=== PATIENT | female | born 1955 | race Caucasian/White ===

== ENCOUNTER 2022-02-02 00:42 | Emergency (ER) | payer MEDICARE, OTHER, SELFPAY ==
[2022-02-02] VITALS (10 sets, daily range): BP systolic 120–140; BP diastolic 57–108; PULSE 73–125; RESP 16–20; TEMP 37.1; O2SAT 97–100; BMI 48.7
[2022-02-02] MEDS: 0.9 % SODIUM CHLORIDE 1000 ml 1,000 ML IV (00:50)
[2022-02-02] MEDS: dilTIAZem 5 MG/ML inj 15 MG IVP (00:50)
--- NOTE | 2022-02-02 00:59 | CRLHL7_ITS ---
For Patients: As a result of the Century Cures Act, medical imaging exams and procedure reports are released immediately into your electronic medical record. You may view this report before your referring provider. If you have questions, please contact your health care provider. INDICATION: Arrhythmia. TECHNIQUE: Chest 1 views. COMPARISON: Chest x-ray from 03/08/2019. FINDINGS: Lungs: Clear lungs. No consolidation. Pleura: No pleural effusion or pneumothorax. Heart and Mediastinum: The cardiomediastinal silhouette is prominent. The vessels are unremarkable. Bones: Unremarkable. IMPRESSION: No acute cardiopulmonary disease. Dictated by Daniele Larson MD @ 02/02/2022 1:24:27 AM (Electronically Signed)
[2022-02-02 01:22] LABS: Basophils Percent Auto 0.4 % (0.0-3.0); Eosinophils Percent Auto 3.2 % (0.0-7.0); Hematocrit 42.3 % (33.0-51.0); Hemoglobin* 13.9 gm/dL (12.0-16.0); Immature Granulocytes Abs Auto 0.04 K/uL (0.00-0.30); Lymphocytes Percent Auto 29.1 % (20-44); Mean Corpuscular HGB Conc 33 gm/dL (32-36); Mean Corpuscular Hemoglobin 29 pg (26-34); Mean Corpuscular Volume 88 fL (80-100); Monocytes Percent Auto 7.4 % (0.0-11.0); Neutrophils Percent Auto 59.6 % (42.0-72.0); Platelet Count* 251 K/uL (140-440); RDW Coefficient of Variation % 13.1 % (11.5-15.5); Red Blood Count 4.83 m/uL (4.00-5.20); White Blood Count* 12.31 K/uL (4.50-11.00)
[2022-02-02 01:23] LABS: Slide Review Reflex No
[2022-02-02 01:34] LABS: Chloride* 102 mmol/L (96-114)
--- OUTSIDE RECORDS SUMMARY | 2022-02-02 01:34 | XMS_ITS | Clinical Summary ---
:1955 Author Organization [facility] [place] [address] Care Team Providers Name Role Phone Rose Mary Chávez MD Primary Care Provider [phone] Allergies Active Allergy Reactions Severity Noted Date Comments Vancomycin Itching Medium 01/29/2021 Medications Medication Sig Dispensed Refills Start Date End Date Status ibuprofen (ADVIL; MOTRIN) Take 200 mg by 0 Active 200 mg tablet mouth. blood-glucose Dispense meter, 1 Device 0 02/09/2019 Active meterIndications: test strips, Controlled type 2 lancets covered diabetes mellitus without by pt ins. E11.9 complication, without NIDDM type II - long-term current use of Test 3 insulin (HC) times/day, Reason: High A1C [id number] Take 2 Each by 0 1 Active jeanette 100 mg-150 mg- 50 mouth once mg-150 mg capIndications: daily. Primary osteoarthritis of right knee cyanocobalamin (Vitamin Take 1 Tablet 90 Tablet 3 05/02/2021 Active B-12) 1,000 mcg (1,000 mcg) by tabletIndications: B12 mouth once deficiency daily. durable medical equipment Pneumatic 2 Each 0 05/16/2021 Active (DME)Indications: Edema compression of both lower legs due to device. peripheral venous insufficiency, Chronic diastolic CHF (congestive heart failure) (HC) blood sugar diagnostic TEST 3 TIMES 100 Each 08/30/2021 Active (Contour Next Test DAILY Strips) stripIndications: Controlled type 2 diabetes mellitus with stage 3 chronic kidney disease, without long-term current use of insulin (HC) silver sulfADIAZINE Apply topically 85 g 1 08/30/2021 Active (SILVADENE) 1 % to affected creamIndications: area(s) once Lipodermatosclerosis of daily. left lower extremity rivaroxaban (XARELTO) 15 Take 1 Tablet 90 tablet. 3 08/30/2021 Active mg tab tabletIndications: (15 mg) by mouth Paroxysmal atrial 2 times daily fibrillation with rapid with meals. ventricular response (HC) metoprolol succinate Take 1 Tablet 90 Tablet 3 08/30/2021 Active (TOPROL XL) 100 mg (100 mg) by Sustained-Release mouth once tabletIndications: daily. Paroxysmal atrial fibrillation with rapid ventricular response (HC), Essential hypertension, Cardiomyopathy due to hypertension, with heart failure (HC), Chronic diastolic CHF (congestive heart failure) (HC) lisinopriL (PRINIVIL; TAKE 1 TABLET BY 90 Tablet 3 08/30/2021 Active ZESTRIL) 20 mg MOUTH DAILY tabletIndications: Essential hypertension, Cardiomyopathy due to hypertension, with heart failure (HC), Stage 3a chronic kidney disease (HC) hydroCHLOROthiazide Take 1 Tablet 90 Tablet 3 08/30/2021 Active (HCTZ) 25 mg (25 mg) by mouth tabletIndications: once daily. Essential hypertension cholecalciferol, Vitamin Take 1 Tablet 90 Tablet 3 08/30/2021 Active D3, (Vitamin D-3) 5,000 (5,000 units) by unit tab mouth once tabletIndications: daily. Vitamin D deficiency atorvastatin (LIPITOR) 40 Take 1 Tablet 90 tablet. 3 2 Active mg tabletIndications: (40 mg) by mouth Homocystinemia (HC), at bedtime. 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 Controlled type 2 diabetes mellitus with stage 3 chron ic kidney disease, 05/02/2021 without long-term current use of insulin Symptomatic congestive heart failure 04/03/2021 Myocardial strain 04/03/2021 Morbid obesity 04/03/2021 Mild mitral valve regurgitation 04/03/2021 Mild left ventricular hypertrophy 04/03/2021 Mild aortic valve stenosis 04/03/2021 Mild aortic valve regurgitation 04/03/2021 Edema of both lower legs due to peripheral venous insu fficiency 04/03/2021 Anemia 04/03/2021 Chronic diastolic CHF (congestive heart failure) 05/03 Atrial fibrillation with rapid ventricular response Cardiomyopathy due to hypertension 03/16/2019 Stage 3b chronic kidney disease 03/16/2019 Hyperlipidemia 02/09/2019 Hypertension 01/28/2019 Morbid obesity with BMI of 50.0-59.9, adult 01/28/2019 Family history of clotting disorder 01/28/2019 Overview: 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 Resolved Problems Problem Noted Date Resolved Date Primary osteoarthritis of both knees 01/28/2019 Overview: R worse than L Encounters Date Type Specialty Care Team Description 12/04/2021 Office Visit Shae Hidalgo MD Follow Up (Follow up A.Fib/echo ) 12/04/2021 Travel 11/29/2021 Office Visit Rose Mary Chávez, Neck Pain/problem (Sister MD noted she had s ome RIGHT sided neck swel ling on 11/20 - had recently had dental work done, had her upper teeth removed a nd now has a denture or she thought maybe a swollen lymph node - denies pain, fever - feels like mayb e a little bump ) 11/29/2021 Travel 11/27/2021 Orders Only <No scans attac hed> 11/27/2021 Travel 11/26/2021 Telephone Rose Mary Chávez, Appoi ntment Request (Patient hoping to be placed on wait/ cancellation list/if she can bee seen sooner in its f) 11/23/2021 Travel 11/05/2021 Orders Only Kizzy Umana <No scans a ttached> from Last 3 Months Immunizations Name Administration Dates Next Due COVID-19 vaccine ([employer] 30mcg/0.3mL) 12YO+ 022 CADE-SUCROSE PF, MDV COVID-19 vaccine ([employer] 30mcg/0.3mL) PF, MDV 03/09 Influenza, Inactivated AIIV4 (Age 65+ Years) Preserv 022 Free Pneumococcal conj 13-Valent (Prevnar 13) 11/28/2020 Td (Age >=7 Years) 03/08/2019 Family History Medical History Relation Name Comments Coronary artery disease Brother Hyperlipidemia Brother Coronary artery disease Father Hypertension Mother Diabetes Sister Relation Name Status Comments Brother Father Mother Sister Social History Tobacco Use Types Packs/Day Years Used Date Former Smoker 1 40 Quit: 2013 Smokeless Tobacco: Never Used Tobacco Cessation: Counseling Given: Yes Comments: smoke for 40 years Alcohol Use Standard Drinks/Week Comments Not Currently 0 (1 standard drink = 0.6 oz pure alcoho l) Alcohol Habits Answer Date Recorded How often do you have a drink containing alcohol? Monthly or less 08/30/2019 How many drinks containing alcohol do you have on a Not aske d typical day when you are drinking? How often do you have six or more drinks on one Not asked occasion? Comment: Not asked Sex Assigned at Date Recorded Not on file Obstetrics History Last Filed Vital Signs Vital Sign Reading Time Taken Comments Blood Pressure 139/72 12/04/2021 8:37 AM CDT Pulse 57 12/04/2021 8:37 AM CDT Temperature 36.3 ??C (97.4 ??F) 05/14/2021 10:48 AM PSYCHIATRIC TECH Respiratory Rate 18 05/30/2020 9:55 AM PSYCHIATRIC TECH Oxygen Saturation 98% 12/04/2021 8:37 AM CDT Inhaled Oxygen Concentration - - Weight 145.5 kg (320 lb 12.8 oz) 12/04/2021 8:37 AM CDT Height 167.6 cm (5' 6) 08/30/2021 11:04 AM CDT Body Mass Index 51.78 08/30/2021 11:04 AM CDT Plan of Treatment Health Maintenance Due Date Last Done Comments Tdap 01/04/1967 Zoster (shingles) series for age 0901/04/1975 50+ (1 of 2) COVID-19 vaccine series (5 - 10/25/2021 08/30/2021, 021, Booster for Pfizer series) 08/01/2020, Additiona l history exists Pneumococcal series for age 65+ (2 11/28/2021 11/28/2020 - PPSV23 or PCV20) Influenza for age 65+ 12/27/2021 05/02/2021 Fecal testing non-DNA 05/03/2022 05/03/2021, 06/02/2020, (FIT,FOBT,iFOBT) for age 45-75 02/12/2019 Mammogram for age 45-75 05/08/2022 05/08/[address] (for lung CA) age 0508/29/2022 08/29/2021, 2021 50-80 BMI (ht and wt on same day) for 08/30/2022 08/30/2021, 12/28, age 18+ 12/19/2020, Additional history exists Depression screening for age 12+ 08/30/2022 08/30/2021, 08/2020, 06/01/2020, Additional history exists Medicare Wellness for age 65+ 08/30/2022 08/30/2021 Lipids for age 45-75 08/28/2026 08/28/2021, 11/22/2020, 05/30/2020, Additional history exists Tetanus booster 03/08/2029 03/08/2019 Hepatitis C screening for age Completed 02/09/2019 18-79 DEXA/DXA scan for age 65+ Completed 05/08/2021 Procedures Procedure Name Priority Date/Time Associated Diagnosis Comme nts CBC WITH AUTO Routine 11/29/2021 3:30 Lymphadenopathy Results for this DIFFERENTIAL PM CDT procedure are i n the results section. CBC WITH AUTO Routine 11/29/2021 3:30 Lymphadenopathy Results for this DIFFERENTIAL PM CDT procedure are i n the results section. ECHO COMPLETE WO Routine 11/27/2021 10:52 Intermittent atrial Results for this CONTRAST AM CDT fibrillation (HC ) procedure are in Atrial fibrillation the resu lts with rapid ventricular secti on. response (HC) EXTENDED HOLTER Routine 11/05/2021 Intermittent atrial Resul ts for this fibrillation (HC ) procedure are in Atrial fibrillation the resu lts with rapid ventricular secti on. response (HC) from Last 3 Months Results (ABNORMAL) CBC WITH AUTO DIFFERENTIAL (11/29/2021 3:30 PM CDT) [facility] Method Time Signature WHITE BLOOD 10.0 4.5 - 11.0 11/29/2021 [facility] thou/cu mm 3:36 PM CDT [facility] RED BLOOD COUNT 4.70 4.00 - 11/29/2021 [facility] 5.20 3:36 PM CDT [facility] mil/cu mm [facility] HEMOGLOBIN 13.6 12.0 - 11/29/2021 [facility] 16.0 g/dL 3:36 PM CDT [facility] HEMATOCRIT 41.0 33.0 - 11/29/2021 [facility] 51.0 % 3:36 PM CDT [facility] MCV 87 80 - 100 11/29/2021 [facility] fL 3:36 PM CDT [facility] MCH 28.9 26.0 - 11/29/2021 [facility] 34.0 pg 3:36 PM CDT [facility] MCHC 33.2 32.0 - 11/29/2021 [facility] 36.0 g/dL 3:36 PM CDT [facility] RDW 13.9 11.5 - 11/29/2021 [facility] 15.5 % 3:36 PM CDT [facility] PLATELET COUNT 237 140 - 440 [facility]/29[facility]2021 [facility]cu mm 3:36 PM CDT [facility] MPV 10.5 6.5 - 11.0 11/29[facility]2021 [facility] fL 3:36 PM CDT [facility] % NEUT 47.7 % 11/29/2021 [facility] 3:36 PM CDT [facility] % LYMPH 39.7 % 11/29/2021 [facility] 3:36 PM CDT [facility] % MONO 8.0 % 11/29/2021 [facility] 3:36 PM CDT [facility] % EOS 4.0 % 11/29/2021 [facility] 3:36 PM CDT [facility] % BASO 0.6 % 11/29/2021 [facility] 3:36 PM CDT [facility] ABSOLUTE 4.8 1.7 - 7.0 11/29/2021 [facility] NEUTROPHILS thou/cu mm 3:36 PM CDT [facility] ABSOLUTE 4.0 (H) 0.9 - 2.9 11/29/2021 [facility] LYMPHOCYTES thou/cu mm 3:36 PM CDT [facility] ABSOLUTE 0.8 <0.9 11/29/2021 [facility] MONOCYTES thou/cu mm 3:36 PM CDT [facility] ABSOLUTE 0.4 <0.5 11/29/2021 [facility] EOSINOPHILS thou/cu mm 3:36 PM CDT [facility] ABSOLUTE 0.1 <0.3 11/29/2021 [facility] BASOPHILS thou/cu mm 3:36 PM CDT [facility] Specimen Anatomical Collection Method / Collection Time Recei salome Time (Source) Location / Volume Laterality Blood BLOOD SPECIMEN / Venipuncture / 11/29/2021 3:30 2021 3:31 Unknown Unknown PM CDT PM CDT Rose Mary Chávez MD HEMATOLOGY Performing Organization Address City/State/ZIP Code Phon e Number [facility] [address] [place] [address] ECHO COMPLETE WO CONTRAST (11/27/2021 10:52 AM CDT) P athologist Signature AORTIC VALVE 20 mmHg MEAN PG EJECTION 62 % FRACTION LVEDD 4.8 cm EJECTION 60 - 65% FRACTION Anatomical Region Laterality Modality HEART Ultrasound Specimen (Source) Anatomical Collection Method Collection Time Re ceived Time Location / / Volume Laterality 11/27/2021 10:10 AM CDT Narrative 11/27/2021 10:56 AM CDT ECHOCARDIOGRAM CHELO TORRES ?Accessio n#: ?? [id number] : ?1955 66 years Study Date: ?? 11/27/2021 10:10:03 AM Gender: F ? BP: ? 151/69 mmHg Height: 173.00 cm ? BSA: ?2.50 m? ?? Weight: 146.00 kg ? Tech: ? MJS ?Munira barron MD: ROSE MARY CHÁVEZ Site: ? [facility] Reading Location: MOBILE OP Procedure: 2D, Color Doppler and Spectra l Doppler. Indication for study: AT-FIB Cardiac Rhythm: Normal sinus.Study quali ty: Technically limited. Final Impressions: 1. Technically limited exam. 2. The aortic valve is sclerotic and tr ileaflet, moderate stenosis and mild to moderate regurgitation. The aortic valve peak velocity is 2.9 m/s, the peak gradient is 34 mmHg, and the mean gradient is 20 mmHg. The aortic valve area is 1.32 c m? ?? with a dimensionless index of 0.35. The stroke volume index is 38.6 ml/m? ??. 3. Normal LV size, moderately increased wall thickness, normal global systolic function with an estimated EF of 60 - 65%. 4. Right ventricular cavity size is nor mal, global systolic RV function is normal. 5. Moderately enlarged left atrium. 6. The mitral valve is sclerotic, trace mitral regurgitation. 7. The ascending aorta is dilated with a maximal diameter of 4.0 cm. Comparison Compared to prior exam report of 04/2020, there has been no significant change. Chamber Sizes and Function Normal left ventricular size, moderately increased wall thickness, normal global systolic function with an estimated EF of 60 - 65%. Left atrial size is moderately enlarged. Right ventricular cavity siz e is normal, global systolic RV function is normal. The right atrium is normal. Right atrial volume index is 17 ml/m? ??. Right atrial area is 15 cm? ??. The pulmonary artery is of normal size and origi n. The sinus of Valsalva is normal sized . The ascending aorta is dilated. Valves, RV Pressures and Diastolic Funct ion The aortic valve is sclerotic and trilea flet, moderate stenosis and mild to moderate regurgitation. The mitral valve is sclerotic, trace mitral regurgitation. Spectral Doppler shows Grade 1 pattern of L V diastolic filling. The tricuspid valve is normal in structure. Tricuspid regurgitation is trace regurgitation. The pulmonic valve is not well visualized. No pulmonary regurgitation. TTE images do not appear adequate for transcather interven tion with patient supine. Masses, Effusion, Shunts There is no pericardial effusion. The in ferior vena cava is normal sized, respiratory size variation greater than 50%. No left to right shunting was detected by limited color flow Doppler interrogation of the interatrial septum. MEASUREMENTS AND CALCULATIONS 2-D Measurements and LV Function: LVID (d) 4.8 cm LV FS% (2D) ?? 51 % LVID (s) 2.4 cm LVOT diameter 2.2 cm IVS (d) ??1.3 cm HR ?60 bpm LVPW (d) 1.3 cm LA Vol index ??39 ml/m2 Ao Sinus 3.2 cm RA Vol index ??17 ml/m2 Asc Ao ?? 4.0 cm RA area ? 15 cm? ?? LA ? 4.3 cm RV Max 4C (d) 3.3 cm Diastology: Mitral ?Tissue Doppler E Peak 0.8 m/s ??e', Septum ? 0.05 m /s A Peak 1.2 m/s ??e', Lateral ?0.10 m /s E/A ?0.6 ?E/e' Average ?? 10. 64 DT ? 391 msec Aortic Valve: Vmax ? 2.9 m/s ??BARBARA (V) ?? 1.30 cm? ?? VTI ?0.73 m ?? BARBARA (I) ?? 1.32 cm? ?? LVOT V max 1.0 m/s ??Max PG ?34 mmHg LVOT VTI ?? 0.25 m ?? Mean PG ?? 20 mmHg SV ? 97 ml ?Dim Index 0.35 SV index ?? 39 ml/m? ?? CO ?5.8 l/min ?CI ?2.3 l/min/m? ?? Mitral Valve: MVA ?1.9 cm? ?? MV P 1/2 113 msec Tricuspid Valve and estimated PA pressur es: TAPSE 2.9 cm . This study was interpreted by an [facility] redited facility. ??Final ?? Procedure Note Farshad Camacho MD - 11/27/2021Format ting of this note might be different from the original. ECHOCARDIOGRAM CHELO TORRES : 1955 66 years Study Date: 022 10:10:03 AM Gender: F BP: 151/69 mmHg Height: 173.00 cm BSA: 2.50 m? ?? Weight: 146.00 kg Tech: JONAS Referring MD: ROSE MARY CHÁVEZ Site: [facility] Reading Location: MOBILE OP Procedure: 2D, Color Doppler and Spectra l Doppler. Indication for study: AT-FIB Cardiac Rhythm: Normal sinus.Study quali ty: Technically limited. Final Impressions: 1. Technically limited exam. 2. The aortic valve is sclerotic and tr ileaflet, moderate stenosis and mild to moderate regurgitation. The aortic valve peak velocity is 2.9 m/s, the peak gradient is 34 mmHg, and the mean gradient is 20 mmHg. The aortic valve area is 1.32 cm? ?? with a dimensionless index of 0.35. The stroke volume index is 38.6 ml/m? ??. 3. Normal LV size, moderately increased wall thickness, normal global systolic function with an estimated EF of 60 - 65%. 4. Right ventricular cavity size is nor mal, global systolic RV function is normal. 5. Moderately enlarged left atrium. 6. The mitral valve is sclerotic, trace mitral regurgitation. 7. The ascending aorta is dilated with a maximal diameter of 4.0 cm. Comparison Compared to prior exam report of 04/2020, there has been no significant change. Chamber Sizes and Function Normal left ventricular size, moderately increased wall thickness, normal global systolic function with an estimated EF of 60 - 65%. Left atrial size is moderately enlarged. Right ventricular cavity size is normal, global systolic RV function is normal. T he right atrium is normal. Right atrial volume index is 17 ml/m? ??. Right atrial area is 15 cm? ??. The pulmonary artery is of normal size and origin. The sinus of Valsalva is normal sized. The ascending aorta is dil ated. Valves, RV Pressures and Diastolic Funct ion The aortic valve is sclerotic and trilea flet, moderate stenosis and mild to moderate regurgitation. The mitral valve is sclerotic, trace mitral regurgitation. Spectral Doppler shows Grade 1 pattern of LV diastolic filling. The tricuspid valve is normal i n structure. Tricuspid regurgitation is trace regurgitation. The pulmonic valve is not well visualized. No pulmonary regurgitation. TTE images do not appear adequate for transcather intervention with patien t supine. Masses, Effusion, Shunts There is no pericardial effusion. The in ferior vena cava is normal sized, respiratory size variation greater than 50%. No left to right shunting was detected by limited color flow Doppler interrogation of the interatrial septum. MEASUREMENTS AND CALCULATIONS 2-D Measurements and LV Function: LVID (d) 4.8 cm LV FS% (2D) 51 % LVID (s) 2.4 cm LVOT diameter 2.2 cm IVS (d) 1.3 cm HR 60 bpm LVPW (d) 1.3 cm LA Vol index 39 ml/m2 Ao Sinus 3.2 cm RA Vol index 17 ml/m2 Asc Ao 4.0 cm RA area 15 cm? ?? LA 4.3 cm RV Max 4C (d) 3.3 cm Diastology: Mitral Tissue Doppler E Peak 0.8 m/s e', Septum 0.05 m/s A Peak 1.2 m/s e', Lateral 0.10 m/s E/A 0.6 E/e' Average 10.64 DT 391 msec Aortic Valve: Vmax 2.9 m/s BARBARA (V) 1.30 cm? ?? VTI 0.73 m BARBARA (I) 1.32 cm? ?? LVOT V max 1.0 m/s Max PG 34 mmHg LVOT VTI 0.25 m Mean PG 20 mmHg SV 97 ml Dim Index 0.35 SV index 39 ml/m? ?? CO 5.8 l/min CI 2.3 l/min/m? ?? Mitral Valve: MVA 1.9 cm? ?? MV P 1/2 113 msec Tricuspid Valve and estimated PA pressur es: TAPSE 2.9 cm . [facility]. Final Rose Mary Chávez MD ECHO ORD EXTENDED HOLTER (11/05/2021) Narrative This result has an attachment that is no t available. Rose Mary Chávez MD CARDIAC SERVICES ORD from Last 3 Months Insurance Payer Benefit Plan / Subscriber ID Effective Dates Phone Addre ss Type Group MEDICARE PART B MEDICARE PART B [id number] 2019-Present ATTN: CLAIMS - HB USE ONLY HB ONLY [address] [place] [address] MEDICARE PART A MEDICARE PART A [id number] 2019-Present ATTN: CLAIMS - HB USE ONLY HB ONLY [address] [place] [address] MEDICA MR MEDICA PRIME [id number] 2021-Present [address] [address] [place] [address] MEDICA [employer] [id number] 2021-Present [address] [address] [place] [address] [employer] [id number] 2021- [address] [address] ATTN: [place] [address] Care Teams Flexible Babysitter Relationship Specialty Start Date End Date Rose Mary Chávez MD PCP - General Family Practice 01/20/19 [address] [place] [address]
[2022-02-02 01:35] LABS: Potassium* 4.8 mmol/L (3.6-5.1); Sodium* 137 mmol/L (135-149)
[2022-02-02 01:37] LABS: Creatinine* 1.5 mg/dL (0.5-1.5); Est. Creatinine Clearance* 37.22; Estimated Glomerular Filt Rate 38 ml/min
[2022-02-02 01:38] LABS: Blood Urea Nitrogen* 37 mg/dL (7-30); Calcium* 9.5 mg/dL (8.4-10.6); Carbon Dioxide* 23 mmol/L (20-32); Glucose* 171 mg/dL (60-115)
[2022-02-02 01:51] LABS: Troponin I* < 0.01 ng/mL (0.01-0.04)
--- NOTE | 2022-02-02 01:53 | ED_ITS ---
HPI - Arrhythmia/Palpitations General Chief Complaint: Arrhythmia/Palpitations Stated Complaint: Afib Time Seen by Provider: 02/02/22 00:44 History of Present Illness HPI narrative: Pt is a 67 year old woman with paraxysmal atrial fibrilllation who presents with atrial fibrillation with a rate of 125-130. Pt takes metoprolol for rate control and is anticoagulated on rivaroxaban. Pt began noticing symptoms one hour ago. No chest pain, sob, nausea, vomiting or diaphoresis. Pt has had similar presentations in the past and generally converts on her own. No change in medications or activity level. Related Data Home Medications Medication Instructions Recorded Confirmed atorvastatin 40 mg tablet 40 mg PO DAILY 02/02/22 02/02/22 hydrochlorothiazide 25 mg tablet 25 mg PO DAILY 02/02/22 02/02/22 lisinopril 20 mg tablet 20 mg PO DAILY 02/02/22 02/02/22 metoprolol succinate 100 mg 100 mg PO DAILY 02/02/22 02/02/22 tablet,extended release 24 hr rivaroxaban 15 mg tablet (Xarelto) 15 mg PO DAILY 02/02/22 02/02/22 Allergies Allergy/AdvReac Type Severity Reaction Status Date / Time vancomycin AdvReac itch Verified 02/02/22 01:11 Review of Systems Status of ROS: Reports: 10 or more systems reviewed and unremarkable except as noted in History and below [facility] Medical History Acute appendicitis with appendiceal abscess Anemia Cellulitis of left lower extremity without foot Controlled type 2 diabetes mellitus Diastolic CHF with preserved left ventricular function, NYHA class 2 Hyperlipidemia Hypertension Hypertensive cardiomyopathy Hypothyroidism Mild aortic insufficiency Mild aortic stenosis Mild left ventricular hypertrophy Mild mitral regurgitation Morbidly obese Paroxysmal atrial fibrillation with rapid ventricular response Stage 3b chronic kidney disease Surgical History S/P laparoscopic appendectomy Social History Smoking Status: Never smoker Do you use any of these nicotine containing products: None Second hand tobacco smoke exposure: No How often do you have a drink containing alcohol: never How often do you have six or more drinks on one occasion: Never AUDIT-C Alcohol total score: 0 Non-prescribed substance use: denies use Exam Narrative: Exam Narrative: EXAM GENERAL: Patient appears comfortable and well. EYES: No scleral icterus. ENT: Tympanic membranes and oropharynx normal. THYROID: no thyroid nodules or thyromegaly. LYMPH: No supraclavicular or cervical lymphadenopathy. SKIN: Visible skin seen during exam normal or with benign process only. EXT: No dependent lower extremity pedal edema. HEART: Regular but tachycardic LUNGS: Clear to auscultation bilaterally with no crackles or wheezes. ABD: Soft, non tender, non distended. PSYCH: Good eye contact, speech is not pressured. Const: Vital Signs, click to edit/add: Vital Signs - 24 hr 02/02/22 00:57 02/02/22 00:44 02/02/22 01:11 Temperature 98.7 F Pulse Rate 85 Pulse Rate [Left A pical] 125 H Respiratory Rate 20 18 Blood Pressure 120/87 Blood Pressure [Le ft Forearm] 140/108 H Pulse Oximetry 97 97 98 Oxygen Delivery Me thod Room Air 02/02/22 01:26 02/02/22 01:30 02/02/22 01:31 Temperature Pulse Rate 73 83 86 Pulse Rate [Left A pical] Respiratory Rate Blood Pressure 122/57 L Blood Pressure [Le ft Forearm] Pulse Oximetry 100 99 99 Oxygen Delivery Me thod 02/02/22 01:35 Temperature 98.7 F Pulse Rate Pulse Rate [Left A pical] 78 Respiratory Rate 18 Blood Pressure Blood Pressure [Le ft Forearm] 125/78 Pulse Oximetry 99 Oxygen Delivery Me thod Room Air Course Course Hospital Course: Pt given 15 mg of IV Cardizem, Labs and x ray ordered. Reevaluation(s) Reevaluation #1: Pulse now 78. Vitals stable. Labs and x ray reassuring. Pt feeling better and would like to go home. Time: 01:58 Vital Signs Vital signs: Initial Vital Signs Pulse Oximetry 97 02/02/22 00:44 Vital Signs Pulse Oximetry 97 02/02/22 00:44 Temperature 98.7 F 02/02/22 01:35 Pulse Rate 78 02/02/22 01:35 Respiratory Rate 18 02/02/22 01:35 Blood Pressure 125/78 02/02/22 01:35 Pulse Oximetry 99 02/02/22 01:35 Oxygen Delivery Method 02/02/22 01:35 MDM - Arrhythmia/Palpitations MDM Narrative Medical decision making narrative: Pt who has a history of paroxysmal atrial fibrillation presents with mild tachycardia. Given 15 mg of IV Cardizem and rate is now under good control. Workup otherwise unremarkable. Home metoprolol increased from 100 to 150. Pt anticoagulated previously. Discharged to home with outpt follow up. Differential Diagnosis Differential diagnosis: Likely palpitations, anxiety, artial fibrillation, artial flutter, ventricular premature beats, supraventricular tachycardia and ventricular tachycardia Lab Data Labs: Lab Results 02/02/22 02/02/22 Range/Units 01:17 01:17 WBC 12.31 H (4.50-11.00) K/uL RBC 4.83 (4.00-5.20) m/uL Hgb 13.9 (12.0-16.0) gm/dL Hct 42.3 (33.0-51.0) % MCV 88 (80-100) fL MCH 29 (26-34) pg MCHC 33 (32-36) gm/dL RDW Coeff of Chin 13.1 (11.5-15.5) % Plt Count 251 (140-440) K/uL Neut % (Auto) 59.6 (42.0-72.0) % Lymph % (Auto) 29.1 (20-44) % [place] % (Auto) 7.4 (0.0-11.0) % Eos % (Auto) 3.2 (0.0-7.0) % Baso % (Auto) 0.4 (0.0-3.0) % Neut # (Auto) 7.30 H (1.7-7.0) K/uL Lymph # (Auto) 3.60 H (0.90-2.90) K/uL [place] # (Auto) 0.90 (0.00-0.90) K/UL Eos # (Auto) 0.40 (0.00-0.50) K/uL Baso # (Auto) 0.00 (0.00-0.30) K/uL Abs Immat Gran (auto) 0.04 (0.00-0.30) K/uL Sodium 137 (135-149) mmol/L Potassium 4.8 (3.6-5.1) mmol/L Chloride 102 (96-114) mmol/L Carbon Dioxide 23 (20-32) mmol/L BUN 37 H (7-30) mg/dL Creatinine 1.5 (0.5-1.5) mg/dL Estimated Creat Clear 37.22 Estimated GFR 38 ml/min Glucose 171 H (60-115) mg/dL Calcium 9.5 (8.4-10.6) mg/dL Troponin I < 0.01 L (0.01-0.04) ng/mL Discharge Plan Discharge Clinical Impression: Atrial fibrillation Condition: Stable Instructions: A-fib (Atrial Fibrillation) (ED) Additional Instructions: Continue current medications Increase metoprolol from 100 to 150 Follow up with your doctor next week. Activity Level: No Restrictions Discharge Diet: Regular Prescriptions: No Action atorvastatin 40 mg tablet 40 mg PO DAILY lisinopril 20 mg tablet 20 mg PO DAILY Label Comments: TAKE 1 TABLET BY MOUTH DAILY metoprolol succinate 100 mg tablet extended release 24 hr 100 mg PO DAILY hydrochlorothiazide 25 mg tablet 25 mg PO DAILY Xarelto 15 mg tablet 15 mg PO DAILY Follow Up/Referrals: Anish Hutchinson MD [Primary Care Provider] - Stand Alone Forms: MyHealth Info Instructions
== END 2022-02-02 02:16 | disposition home or self-care (01) ==
PROVIDERS: Emergency Provider Internal Medicine; PCP Family Medicine
DX: I48.91 Unspecified atrial fibrillation (principal)
CPT/HCPCS: 36415; 71045; 80048; 84484; 85025; 93005; 94761; 99283; 99284; 99285; J7030

== ENCOUNTER 2022-08-12 14:43 | Inpatient (IN) | payer MEDICARE, MEDICAID, OTHER, SELFPAY ==
[2022-08-12] VITALS (17 sets, daily range): BP systolic 117–153; BP diastolic 45–71; PULSE 71–133; RESP 16–20; TEMP 36.3–37.8; O2SAT 83–99; BMI 47.9; BMI 48.0
--- NOTE | 2022-08-12 15:29 | ED_ITS ---
HPI - General Adult General Time Seen by Provider: 15:29 Date Seen: 08/12/22 Chief complaint: Extremity Pain/Injury, Lower Stated complaint: Cellulitis Time Seen by Provider: 08/12/22 14:50 Source: patient and RN notes reviewed Mode of arrival: ambulatory Limitations: no limitations History of Present Illness HPI narrative: Patient is a 67-year-old female coming into the ER accompanied by family with concern of redness swelling and pain in her right lower extremity. She has had history of cellulitis before. She had a fever of 101 yesterday afternoon, did take Tylenol. Has not noted a fever today but did take some Tylenol for discomfort. She is on Xarelto for history of atrial fibrillation but states she did not take it today. She is on hydrochlorothiazide. Does have chronic lower extremity edema. Was noting some urinary issues yesterday, possible frequency and incontinence but daughter believes that it is because she cannot get to the bathroom quick enough. Patient states she has not really ate much in 2 days, can not really tell me why. No current nausea vomiting, feel she is probably hungry now. She is not aware of any history of MRSA. Does have compression boots for edema, she is not wearing them currently. Related Data Home Medications Medication Instructions Recorded Confirmed atorvastatin 40 mg tablet 40 mg PO HS 02/02/22 08/12/22 hydrochlorothiazide 25 mg tablet 25 mg PO DAILY 02/02/22 08/12/22 metoprolol succinate 100 mg 100 mg PO DAILY 02/02/22 08/12/22 tablet,extended release 24 hr rivaroxaban 15 mg tablet (Xarelto) 15 mg PO DAILY 02/02/22 08/12/22 cholecalciferol (vitamin D3) 125 5,000 unit PO DAILY 08/12/22 08/12/22 mcg (5,000 unit) tablet (Vitamin D3) cyanocobalamin (vitamin B-12) 1,000 mcg PO DAILY 08/12/22 08/12/22 1,000 mcg tablet lisinopril 10 mg tablet 15 mg PO DAILY 08/12/22 08/12/22 metoprolol succinate 50 mg 50 mg PO DAILY 08/12/22 08/12/22 tablet,extended release 24 hr turmeric PO 08/12/22 vitamin B complex PO 08/12/22 Allergies Allergy/AdvReac Type Severity Reaction Status Date / Time gabapentin AdvReac Mild Anxiety Verified 08/12/22 14:56 vancomycin AdvReac itch Verified 08/12/22 14:56 [facility] Medical History Acute appendicitis with appendiceal abscess Anemia Cellulitis of left lower extremity without foot Controlled type 2 diabetes mellitus Diastolic CHF with preserved left ventricular function, NYHA class 2 Hyperlipidemia Hypertension Hypertensive cardiomyopathy Hypothyroidism Mild aortic insufficiency Mild aortic stenosis Mild left ventricular hypertrophy Mild mitral regurgitation Morbidly obese Paroxysmal atrial fibrillation with rapid ventricular response Stage 3b chronic kidney disease Surgical History S/P laparoscopic appendectomy Social History Smoking Status: Former smoker Do you use any of these nicotine containing products: None Second hand tobacco smoke exposure: No How often do you have a drink containing alcohol: never How often do you have six or more drinks on one occasion: Never AUDIT-C Alcohol total score: 0 Non-prescribed substance use: denies use Exam Const: Vital Signs, click to edit/add: Vital Signs - 24 hr 08/12/22 14:48 Temperature 97.3 F L Pulse Rate [Pulse Oximeter] 88 Respiratory Rate 16 Blood Pressure [Ri ght Upper Arm] 121/64 Pulse Oximetry 98 Oxygen Delivery Me thod Room Air Documenting provider has reviewed patient's vital signs: yes Common normals: no apparent distress, oriented x3, no limitations, alert and well nourished General appearance: cooperative and comfortable Nutritional appearance: obese HENMT: Common normals: normocephalic, head/scalp atraumatic, hearing grossly normal bilaterally, external ears normal, external nose normal and moist oral mucous membranes Head and scalp: normocephalic and atraumatic Nose: external nose normal External ear: external ears normal Eye: Common normals: PERRL, EOMs intact bilaterally, conjunctivae normal and no scleral icterus Conjunctiva: conjunctiva(e) normal Pupil: PERRL Neck & C-Spine: Common normals: full ROM, no lymphadenopathy and supple Resp: Common normals: normal respiratory effort, no retractions, no use of accessory muscles and clear to auscultation bilaterally Auscultation: clear to auscultation bilaterally Cardio: Common normals: regular rate, regular rhythm, S1 normal heart sound, S2 normal heart sound, no gallops and no clicks Rate: regular rate Rhythm: regular rhythm Heart sounds: S1 normal and S2 normal Other: Systolic murmur, most harsh right sternal border, 2 to 3/6. Normal S1-S2, no S3-S4. GI: Common normals: Normal to inspection, nondistended, normoactive bowel sounds present, soft to palpation and non-tender Palpation: soft Extremity: Other: Has erythema that is confluent along the anterior lower extremity, no vesicles. Erythema is circumferential around her lower extremity, does track down onto the dorsum of the foot. Chronic edema that seems to be symmetric of both lower extremities. Right leg certainly seems to be consistent with cellulitis. Ambulates with a cane. Neuro: Common normals: oriented x3 Sensorium/orientation: alert Course Vital Signs Vital signs: Initial Vital Signs Temperature 97.3 F L 08/12/22 14:48 Temperature Source Temporal Artery Scan 08/12/22 14:48 Pulse Rate 88 08/12/22 14:48 Respiratory Rate 16 08/12/22 14:48 Blood Pressure 121/64 08/12/22 14:48 Blood Pressure Mean 83 08/12/22 14:48 Blood Pressure Position Sitting 08/12/22 14:48 Pulse Oximetry 98 08/12/22 14:48 Oxygen Delivery Method Room Air 08/12/22 14:48 Vital Signs Temperature 97.3 F L 08/12/22 14:48 Pulse Rate 88 08/12/22 14:48 Respiratory Rate 16 08/12/22 14:48 Blood Pressure 121/64 08/12/22 14:48 Pulse Oximetry 98 08/12/22 14:48 Oxygen Delivery Method Room Air 08/12/22 14:48 Temperature 97.3 F L 08/12/22 14:48 Pulse Rate 88 08/12/22 14:48 Respiratory Rate 16 08/12/22 14:48 Blood Pressure 121/64 08/12/22 14:48 Pulse Oximetry 98 08/12/22 14:48 Oxygen Delivery Method Room Air 08/12/22 14:48 Medical Decision Making Lab Data Lab results reviewed: Yes I reviewed the patient's lab results Labs: Lab Results 08/12/22 08/12/22 Range/Units 15:41 16:00 WBC 16.40 H (4.50-11.00) K/uL RBC 4.44 (4.00-5.20) m/uL Hgb 12.8 (12.0-16.0) gm/dL Hct 38.7 (33.0-51.0) % MCV 87 (80-100) fL MCH 29 (26-34) pg MCHC 33 (32-36) gm/dL RDW Coeff of Chin 13.7 (11.5-15.5) % Plt Count 195 (140-440) K/uL Neut % (Auto) 79.6 H (42.0-72.0) % Lymph % (Auto) 13.8 L (20-44) % [place] % (Auto) 5.3 (0.0-11.0) % Eos % (Auto) 0.8 (0.0-7.0) % Baso % (Auto) 0.2 (0.0-3.0) % Neut # (Auto) 13.10 H (1.7-7.0) K/uL Lymph # (Auto) 2.30 (0.90-2.90) K/uL [place] # (Auto) 0.90 (0.00-0.90) K/UL Eos # (Auto) 0.10 (0.00-0.50) K/uL Baso # (Auto) 0.00 (0.00-0.30) K/uL Sodium 134 L (135-149) mmol/L Potassium 3.8 (3.6-5.1) mmol/L Chloride 102 (96-114) mmol/L Carbon Dioxide 22 (20-32) mmol/L BUN 38 H (7-30) mg/dL Creatinine 1.8 H (0.5-1.5) mg/dL Estimated Creat Clear 31.01 Estimated GFR 31 ml/min Glucose 125 H (60-115) mg/dL Lactate 1.9 (0.5-1.9) mmol/L Calcium 8.9 (8.4-10.6) mg/dL Total Bilirubin 2.0 H (0.1-1.5) mg/dL AST 82 H (12-35) U/L ALT 31 (4-35) U/L Alkaline Phosphatase 97 (40-150) U/L C-Reactive Protein 22.4 H (0.5-1.0) mg/dL Total Protein 7.7 (6.0-8.3) g/dL Albumin 3.9 (3.3-5.0) g/dL Urine Color Yellow (Yellow) Urine Appearance Cloudy A (Clear) Urine pH 5.0 (5.0-8.5) Ur Specific [place] 1.025 (1.000-1.030) Urine Protein 2+ A (Negative) Urine Glucose (UA) Negative (Negative) Urine Ketones Negative (Negative) Urine Blood 2+ A (Negative) Urine Nitrite Negative (Negative) Urine Bilirubin Negative (Negative) Urine Urobilinogen 0.2 (0.2-1.0) Ur Leukocyte Esterase 3+ A (Negative) Urine RBC 2-5 A (0-2) Urine WBC 25-50 A (0-5) Ur Squamous Epith Cells Moderate A (None-Few) Urine Bacteria Few A (None) Fine Granular Casts Few A (None) SARS-CoV-2 (PCR) Negative SARS-CoV-2 (Negative) Critical Care Time Critical Care Time Critical Care Time: No Discharge Plan Discharge Clinical Impression: Cellulitis of right lower extremity Patient Disposition: Admitted As Inpatient Condition: Unchanged Prescriptions: No Action atorvastatin 40 mg tablet 40 mg PO HS metoprolol succinate 100 mg tablet extended release 24 hr 100 mg PO DAILY hydrochlorothiazide 25 mg tablet 25 mg PO DAILY Xarelto 15 mg tablet 15 mg PO DAILY cholecalciferol (vitamin D3) [Vitamin D3] 125 mcg (5,000 unit) tablet 5,000 unit PO DAILY vitamin B complex [B Complex-Vitamin B12] PO turmeric PO cyanocobalamin (vitamin B-12) 1,000 mcg tablet 1,000 mcg PO DAILY lisinopril 10 mg tablet 15 mg PO DAILY metoprolol succinate 50 mg tablet extended release 24 hr 50 mg PO DAILY Follow Up/Referrals: Provider,Not a Local [Primary Care Provider] -
[2022-08-12 15:49] LABS: Appearance Urine Cloudy (Clear); Bilirubin Urine Negative (Negative); Blood Urine 2+ (Negative); Color Urine Yellow (Yellow); Glucose Urine Negative (Negative); Ketones Urine Negative (Negative); Leukocyte Esterase Urine 3+ (Negative); Nitrite Urine Negative (Negative); Protein Urine 2+ (Negative); Specific Gravity Urine 1.025 (1.000-1.030); Urobilinogen Urine 0.2 (0.2-1.0)
[2022-08-12 16:11] LABS: Lactate* 1.9 mmol/L (0.5-1.9)
[2022-08-12 16:12] LABS: Basophils Percent Auto 0.2 % (0.0-3.0); Eosinophils Percent Auto 0.8 % (0.0-7.0); Hematocrit 38.7 % (33.0-51.0); Hemoglobin* 12.8 gm/dL (12.0-16.0); Immature Granulocytes Pct Auto 0.3 %; Lymphocytes Percent Auto 13.8 % (20-44); Mean Corpuscular HGB Conc 33 gm/dL (32-36); Mean Corpuscular Hemoglobin 29 pg (26-34); Mean Corpuscular Volume 87 fL (80-100); Monocytes Percent Auto 5.3 % (0.0-11.0); Neutrophils Percent Auto 79.6 % (42.0-72.0); Platelet Count* 195 K/uL (140-440); RDW Coefficient of Variation % 13.7 % (11.5-15.5); Red Blood Count 4.44 m/uL (4.00-5.20)
[2022-08-12 16:15] LABS: Bacteria Urine Few; Fine Granular Casts Urine Few; Squamous Epithelial Cell Urine Moderate (None-Few); WBC Urine 25-50 (0-5)
[2022-08-12 16:19] LABS: Slide Review Reflex No
[2022-08-12 16:25] LABS: Albumin* 3.9 g/dL (3.3-5.0); Chloride* 102 mmol/L (96-114)
[2022-08-12 16:26] LABS: Potassium* 3.8 mmol/L (3.6-5.1); Sodium* 134 mmol/L (135-149)
[2022-08-12 16:28] LABS: Creatinine* 1.8 mg/dL (0.5-1.5); Est. Creatinine Clearance* 31.01; Estimated Glomerular Filt Rate 31 ml/min
[2022-08-12 16:29] LABS: Alanine Aminotransferase* 31 U/L (4-35); Alkaline Phosphatase* 97 U/L (40-150); Aspartate Amino Transferase* 82 U/L (12-35); Blood Urea Nitrogen* 38 mg/dL (7-30); Calcium* 8.9 mg/dL (8.4-10.6); Carbon Dioxide* 22 mmol/L (20-32); Glucose* 125 mg/dL (60-115); Total Protein* 7.7 g/dL (6.0-8.3)
[2022-08-12 16:43] LABS: C Reactive Protein* 22.4 mg/dL (0.5-1.0)
[2022-08-12 17:14] LABS: SARS PCR* Negative SARS-CoV-2 (Negative)
[2022-08-12] MEDS: CEFAZOLIN 2 GM in 0.9 % SODIUM CHLORIDE Mini-bag 100 ML IVPB (18:06)
--- NOTE | 2022-08-12 18:33 | ED.NURSE ---
Report to JARON Schulte. Pt to go to room 278.
--- NOTE | 2022-08-12 20:52 | P.IMHP_ITS ---
Hospitalist- H&P: HPI History of Present Illness Time Seen by Provider: 19:45 Date Seen: 08/12/22 Chief complaint: Cellulitis Narrative: Chelo Torres is a 67 year old female with a history of CHF and recently diagnosed diet-controlled DM2 who presented with malaise, fever and right lower extremity pain, swelling and redness. She for started feeling unwell Friday evening when she felt generally weak and it was hard for her to get out of the bed to get to the bathroom which was only about 10 ft away. Friday she had a fever up to 101 ? F and felt generally unwell with low appetite. She did not show go up to a breakfast with her niece. Her niece, who was in the room with her today, said that she called Uriel and noticed that uriel was not finishing her sentences and seemed confused. The niece came over to uriel's house and noticed that she was really weak. Uriel also had elevated blood sugars up in the 160s to 190s, which is unusual for her. Normally she is in the 140s to 150s. Because she was so weak while she was in the bathroom she fell getting up from the toilet. She landed into the bathtub and has some bruises on her right thigh that. She did not hit her head and did not lose consciousness. Her right lower extremity started to become more swollen, painful and red today and this brought her to the emergency department. She did not have any scratches to this low leg, only bruises up in the thigh which is not near the area that is red and swollen. She has had a left lower extremity cellulitis in the past. Review of Systems Status of ROS: Reports: 10 or more systems reviewed and unremarkable except as noted in History and below [facility] Medical History (Updated 08/12/22 @ 21:18 by Debbie De Los Santos MD) Acute appendicitis with appendiceal abscess ?K35.33 - Acute appendicitis with perforation, localized peritonitis, and gangrene, with abscess (ICD-10) Anemia ?D64.9 - Anemia, unspecified (ICD-10) Bilateral lower extremity edema ?R60.0 - Localized edema (ICD-10) Cellulitis of left lower extremity without foot ?L03.116 - Cellulitis of left lower limb (ICD-10) Controlled type 2 diabetes mellitus ?E11.9 - Type 2 diabetes mellitus without complications (ICD-10) Diastolic CHF with preserved left ventricular function, NYHA class 2 ?I50.30 - Unspecified diastolic (congestive) heart failure (ICD-10) Family history of clotting disorder ?Z83.2 - Family history of diseases of the blood and blood-forming organs and certain disorders involving the immune mechanism (ICD-10) 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) Hyperlipidemia ?E78.5 - Hyperlipidemia, unspecified (ICD-10) Hypertension ?I10 - Essential (primary) hypertension (ICD-10) Hypertensive cardiomyopathy ?I11.9 - Hypertensive heart disease without heart failure (ICD-10) ?I43 - Cardiomyopathy in diseases classified elsewhere (ICD-10) Hypothyroidism ?E03.9 - Hypothyroidism, unspecified (ICD-10) Mild aortic insufficiency ?I35.1 - Nonrheumatic aortic (valve) insufficiency (ICD-10) Mild aortic stenosis ?I35.0 - Nonrheumatic aortic (valve) stenosis (ICD-10) Mild left ventricular hypertrophy ?I51.7 - Cardiomegaly (ICD-10) Mild mitral regurgitation ?I34.0 - Nonrheumatic mitral (valve) insufficiency (ICD-10) Morbidly obese ?E66.01 - Morbid (severe) obesity due to excess calories (ICD-10) Paroxysmal atrial fibrillation with rapid ventricular response ?I48.0 - Paroxysmal atrial fibrillation (ICD-10) Stage 3b chronic kidney disease ?N18.32 - Chronic kidney disease, stage 3b (ICD-10) Surgical History (Updated 08/12/22 @ 19:23 by Debbie De Los Santos MD) S/P laparoscopic appendectomy (~06/2019) ?Z90.49 - Acquired absence of other specified parts of digestive tract (ICD- 10) Family History (Updated 08/12/22 @ 19:24 by Debbie De Los Santos MD) Brother Coronary artery disease High cholesterol Father Coronary artery disease Sister Diabetes Mother High blood pressure Social History (Updated 08/12/22 @ 20:59 by Debbie De Los Santos MD) Narrative: Smoked 40 pack-years, quit in 2012. Drinks 2-3 drinks per year. Denies recreational drug use. Smoking Status: Former smoker Do you use any of these nicotine containing products: None Second hand tobacco smoke exposure: No How often do you have a drink containing alcohol: never How often do you have six or more drinks on one occasion: Never AUDIT-C Alcohol total score: 0 Non-prescribed substance use: denies use Meds Home Medications and Allergies Home Medications Medication Instructions Recorded Confirmed Type atorvastatin 40 mg tablet 40 mg PO HS 02/02/22 08/12/22 History hydrochlorothiazide 25 mg tablet 25 mg PO HS 02/02/22 08/12/22 History metoprolol succinate 100 mg 100 mg PO HS 02/02/22 08/12/22 History tablet,extended release 24 hr rivaroxaban 15 mg tablet (Xarelto) 15 mg PO HS 02/02/22 08/12/22 History cholecalciferol (vitamin D3) 125 5,000 unit PO HS 08/12/22 08/12/22 History mcg (5,000 unit) tablet (Vitamin D3) cyanocobalamin (vitamin B-12) 1,000 mcg PO DAILY 08/12/22 08/12/22 History 1,000 mcg tablet lisinopril 10 mg tablet 15 mg PO HS 08/12/22 08/12/22 History metoprolol succinate 50 mg 50 mg PO HS 08/12/22 08/12/22 History tablet,extended release 24 hr turmeric PO 08/12/22 History vitamin B complex PO 08/12/22 History Allergies Allergy/AdvReac Type Severity Reaction Status Date / Time gabapentin AdvReac Mild Anxiety Verified 08/12/22 14:56 vancomycin AdvReac itch Verified 08/12/22 14:56 Exam Narrative: Exam Narrative: General: No acute distress. Awake alert oriented x3. Morbidly obese. HEENT: Normocephalic atraumatic, pupils equally round and reactive to light and accommodation. Oropharynx clear. Mucous membranes are slightly dry. No cervical lymphadenopathy, thyromegaly or carotid bruits. No JVD. Cardiovascular: Regular rate and rhythm. No murmurs, gallops, or rubs. Chest: No increased work of breathing. Clear to auscultation bilaterally. No crackles or wheezes. Abdomen: Bowel sounds present. Soft, nondistended, nontender. No hepatosplenomegaly or masses. Extremities: It appears that both lower extremities have chronic lymphedema with 2+ edema of the left lower extremity and 3+ edema right lower extremity. Right lower extremity has circumferential well-demarcated bright red blanching and tender area from just below the knee down through the proximal 2/3 of the dorsum of the foot. No cyanosis or clubbing. Skin: No jaundice, no pallor. Const: Vital Signs, click to edit/add: Vital Signs - 24 hr 08/12/22 14:48 08/12/22 15:07 08/12/22 15:30 Temperature 97.3 F L Pulse Rate 85 76 Pulse Rate [Pulse Oximeter] 88 Respiratory Rate 16 Blood Pressure Blood Pressure [Ri ght Upper Arm] 121/64 Pulse Oximetry 98 97 96 Oxygen Delivery Me thod Room Air 08/12/22 15:31 08/12/22 16:07 08/12/22 16:28 Temperature Pulse Rate 78 74 Pulse Rate [Pulse Oximeter] Respiratory Rate Blood Pressure 120/71 117/58 L Blood Pressure [Ri ght Upper Arm] Pulse Oximetry 96 Oxygen Delivery Me thod 08/12/22 16:30 08/12/22 16:32 08/12/22 17:00 Temperature Pulse Rate 71 72 129 H Pulse Rate [Pulse Oximeter] Respiratory Rate Blood Pressure 118/58 L Blood Pressure [Ri ght Upper Arm] Pulse Oximetry Oxygen Delivery Me thod 08/12/22 17:02 08/12/22 17:32 08/12/22 17:48 Temperature Pulse Rate 133 H Pulse Rate [Pulse Oximeter] Respiratory Rate Blood Pressure 125/45 L 136/64 Blood Pressure [Ri ght Upper Arm] Pulse Oximetry 83 L Oxygen Delivery Me thod 08/12/22 18:01 Temperature Pulse Rate Pulse Rate [Pulse Oximeter] Respiratory Rate Blood Pressure 130/61 Blood Pressure [Ri ght Upper Arm] Pulse Oximetry Oxygen Delivery Me thod Vital signs around 8:30 p.m. showed O2 sats of 98% on room air and a pulse of 90, respirations 20, systolic blood pressure 145. Hospitalist - H&P: Result Labs Labs: Short CBC 08/12/22 Range/Units 16:00 WBC 16.40 H (4.50-11.00) K/uL Hgb 12.8 (12.0-16.0) gm/dL Hct 38.7 (33.0-51.0) % Plt Count 195 (140-440) K/uL BMP 08/12/22 16:00 Sodium 134 L Potassium 3.8 Chloride 102 Carbon Dioxide 22 BUN 38 H Creatinine 1.8 H Glucose 125 H Calcium 8.9 Liver Function 08/12/22 Range/Units 16:00 Total Bilirubin 2.0 H (0.1-1.5) mg/dL AST 82 H (12-35) U/L ALT 31 (4-35) U/L Alkaline Phosphatase 97 (40-150) U/L Albumin 3.9 (3.3-5.0) g/dL Urine 08/12/22 Range/Units 15:41 Urine Color Yellow (Yellow) Urine Appearance Cloudy A (Clear) Urine pH 5.0 (5.0-8.5) Ur Specific [place] 1.025 (1.000-1.030) Urine Protein 2+ A (Negative) Urine Glucose (UA) Negative (Negative) Ordering Physician: Wade Elaine M.D. Date of Service: 02/02/22 Procedure(s): XR chest 1V portable Accession Number(s): [id number] cc: Wade Elaine M.D.~ For Patients: As a result of the Century Cures Act, medical imaging exams and procedure reports are released immediately into your electronic medical record. You may view this report before your referring provider. If you have questions, please contact your health care provider. INDICATION: Arrhythmia. TECHNIQUE: Chest 1 views. COMPARISON: Chest x-ray from 03/08/2019. FINDINGS: Lungs: Clear lungs. No consolidation. Pleura: No pleural effusion or pneumothorax. Heart and Mediastinum: The cardiomediastinal silhouette is prominent. The vessels are unremarkable. Bones: Unremarkable. IMPRESSION: No acute cardiopulmonary disease. Dictated by Daniele Larson MD @ 02/02/2022 1:24:27 AM (Electronically Signed) Assessment and Plan Assessment and plan (1) Cellulitis of right lower extremity: Problem comment: - Admit, sami edges, elevate RLE, control BG, continue ancef started in ER, will adjust for reduced renal function. - I think DVT is unlikely since she has been on therapeutic doses of Xarelto. - If worsening or no improvement, will need to expand coverage/add vanco. Status: Acute (2) Controlled type 2 diabetes mellitus: Problem comment: Most recent hemoglobin A1c was 7.1% on 03/04/2022 - recheck HgbA1C - ISS, diabetic diet Status: Chronic (3) Diastolic CHF with preserved left ventricular function, NYHA class 2: Problem comment: - not currently in exacerbation - Not septic at this time, so I will hold off on IVF. low Na diet and FR of 2000cc/day. Status: Chronic (4) NICKOLAS (acute kidney injury): Problem comment: Mild. Hold HCTZ and lisinopril. Recheck Cr in am. Status: Acute (5) Stage 3b chronic kidney disease: Problem comment: Baseline creatinine is approximately 1.2-1.5 Status: Chronic (6) Weakness: Problem comment: PT/OT evaluation Status: Acute (7) Hypertension: Status: Chronic (8) Paroxysmal atrial fibrillation with rapid ventricular response: Problem comment: Continue metoprolol and Xarelto Status: Chronic Plan VTE prophylaxis with Xarelto.
[2022-08-12] MEDS: RIVAROXABAN 10 MG TABLET 15 MG PO (22:13)
[2022-08-12] MEDS: ACETAMINOPHEN 325 MG TABLET 650 MG PO (22:14)
[2022-08-12] MEDS: ATORVASTATIN CALCIUM 40 MG TABLET PO (22:15)
[2022-08-12] MEDS: SODIUM CHLORIDE 0.9 % (FLUSH) 10 ML SYRINGE 5 ML IVF (22:16)
[2022-08-12] MEDS: METOPROLOL SUCCINATE (XL) 100 MG TAB PO (22:20)
[2022-08-12] MEDS: METOPROLOL SUCCINATE (XL) 50 MG TAB PO (22:20)
[2022-08-13 02:44] VITALS: BP 139/61; PULSE 73; RESP 20; TEMP 36.8; O2SAT 93
--- NOTE | 2022-08-13 05:33 | PC.NURSE ---
[id number]: Patient pleasant and cooperative. A&Ox3. 10 pain in R. lower extremity d/t cellulitis. Cellulitis outlined and remained w/i drawn lines. 2 bruises on R. thigh d/t fall at home. A1/cane/GB.
[2022-08-13] MEDS: 0.9 % SODIUM CHLORIDE 250 ml IV (06:26)
[2022-08-13] MEDS: CEFAZOLIN 1 GM in 0.9 % SODIUM CHLORIDE Mini-bag 100 ML IVPB ×3 (06:26→21:58)
[2022-08-13 07:00] VITALS: BP 121/50; PULSE 75; RESP 18; TEMP 36.8; O2SAT 98
[2022-08-13 07:05] LABS: Basophils Percent Auto 0.2 % (0.0-3.0); Eosinophils Percent Auto 1.4 % (0.0-7.0); Hematocrit 35.9 % (33.0-51.0); Hemoglobin* 11.9 gm/dL (12.0-16.0); Immature Granulocytes Pct Auto 0.3 %; Lymphocytes Percent Auto 15.1 % (20-44); Mean Corpuscular HGB Conc 33 gm/dL (32-36); Mean Corpuscular Hemoglobin 29 pg (26-34); Mean Corpuscular Volume 87 fL (80-100); Monocytes Percent Auto 6.4 % (0.0-11.0); Neutrophils Percent Auto 76.6 % (42.0-72.0); Platelet Count* 195 K/uL (140-440); RDW Coefficient of Variation % 13.6 % (11.5-15.5); Red Blood Count 4.15 m/uL (4.00-5.20); White Blood Count* 15.32 K/uL (4.50-11.00)
[2022-08-13 07:09] LABS: Slide Review Reflex No
[2022-08-13 07:10] LABS: Albumin* 3.5 g/dL (3.3-5.0); Chloride* 103 mmol/L (96-114); Potassium* 4.4 mmol/L (3.6-5.1); Sodium* 135 mmol/L (135-149)
[2022-08-13 07:12] LABS: Creatinine* 1.5 mg/dL (0.5-1.5); Est. Creatinine Clearance* 37.22; Estimated Glomerular Filt Rate 38 ml/min
[2022-08-13 07:13] LABS: Alanine Aminotransferase* 28 U/L (4-35); Alkaline Phosphatase* 83 U/L (40-150); Aspartate Amino Transferase* 60 U/L (12-35); Bilirubin Total* 1.4 mg/dL (0.1-1.5); Blood Urea Nitrogen* 32 mg/dL (7-30); Carbon Dioxide* 23 mmol/L (20-32); Glucose* 132 mg/dL (60-115)
[2022-08-13 07:14] LABS: Calcium* 8.5 mg/dL (8.4-10.6)
[2022-08-13 07:25] LABS: Hemoglobin A1C* 7.02 % (0-5.6)
[2022-08-13 07:30] LABS: C Reactive Protein* 20.1 mg/dL (0.5-1.0)
--- NOTE | 2022-08-13 09:57 | P.IMPN_ITS ---
Progress Note: A&P Assessment and plan (1) Cellulitis of right lower extremity: Problem details: - Continue IV Ancef - CRP and WBC trending downward, slow clinical improvement as well - DVT unlikely, as anticoagulated with Xarelto Status: Acute (2) Controlled type 2 diabetes mellitus: Problem details: - HgbA1C 7 on 08/13/22 - ISS, diabetic diet Status: Chronic (3) Paroxysmal atrial fibrillation with rapid ventricular response: Problem details: -stable at this time, continue metoprolol and Xarelto Status: Chronic (4) Diastolic CHF with preserved left ventricular function, NYHA class 2: Problem details: - not currently in exacerbation - low Na diet and FR of 2000cc/day. - last TTE 11/2021: Final Impressions: 1. Technically limited exam. 2. The aortic valve is sclerotic and trileaflet, moderate stenosis and mild to moderate regurgitation. The aortic valve peak velocity is 2.9 m/s, the peak gradient is 34 mmHg, and the mean gradient is 20 mmHg. The aortic valve area is 1.32 cm?? with a dimensionless index of 0.35. The stroke volume index is 38.6 ml/m??. 3. Normal LV size, moderately increased wall thickness, normal global systolic function with an estimated EF of 60 - 65%. 4. Right ventricular cavity size is normal, global systolic RV function is normal. 5. Moderately enlarged left atrium. 6. The mitral valve is sclerotic, trace mitral regurgitation. 7. The ascending aorta is dilated with a maximal diameter of 4.0 cm. Comparison Compared to prior exam report of 04/2020, there has been no significant change. Status: Chronic (5) NICKOLAS (acute kidney injury): Problem details: - On admission, mild. Back to baseline 08/13 - Restart HCTZ and Lisinopril 08/13, continue to follow renal function and electrolytes Status: Acute (6) Stage 3b chronic kidney disease: Problem details: - Baseline creatinine is approximately 1.2-1.5 Status: Chronic (7) Weakness: Problem details: - PT/OT evaluation Status: Acute Plan -Continue IV Ancef, follow clinically as well as CRP/WBC -Likely d/c back to home when medically appropriate, expect 1-2 days Subjective Date Seen: 08/13/22 Interval history: No acute events overnight. Tolerating IV antibiotics. No recurrent AFib with RVR. Ruma has no concerns for the hospitalist team. Exam Narrative: Exam Narrative: GEN: Alert and laying comfortably in bed, answering questions appropriately HEENT: Missing upper teeth with evidence of acute infection, EOMIs bilaterally, no scleral icterus CV: RRR, pulse in the 70s during my exam, no concerning murmurs R: LCTA bilaterally without concerning wheezing, air movement adequate Ext: 2+ pitting edema bilateral lower extremities, symmetric Skin: Erythema RLE, confluent and distal to patella. No open skin lesions or drainage, no crepitus, induration, or fluctuance. Erythema remains contained within outlined area from admission Neuro: No focal deficits, no resting tremor Psych: Appropriate Const: Vital Signs, click to edit/add: Vital Signs - 24 hr 08/12/22 14:48 08/12/22 15:07 08/12/22 15:30 Temperature 97.3 F L Pulse Rate 85 76 Pulse Rate [Pulse Oximeter] 88 Respiratory Rate 16 Blood Pressure Blood Pressure [Ri ght Arm] Blood Pressure [Ri ght Upper Arm] 121/64 Pulse Oximetry 98 97 96 Oxygen Delivery Me thod Room Air 08/12/22 15:31 08/12/22 16:07 08/12/22 16:28 Temperature Pulse Rate 78 74 Pulse Rate [Pulse Oximeter] Respiratory Rate Blood Pressure 120/71 117/58 L Blood Pressure [Ri ght Arm] Blood Pressure [Ri ght Upper Arm] Pulse Oximetry 96 Oxygen Delivery Me thod 08/12/22 16:30 08/12/22 16:32 08/12/22 17:00 Temperature Pulse Rate 71 72 129 H Pulse Rate [Pulse Oximeter] Respiratory Rate Blood Pressure 118/58 L Blood Pressure [Ri ght Arm] Blood Pressure [Ri ght Upper Arm] Pulse Oximetry Oxygen Delivery Me thod 08/12/22 17:02 08/12/22 17:32 08/12/22 17:48 Temperature Pulse Rate 133 H Pulse Rate [Pulse Oximeter] Respiratory Rate Blood Pressure 125/45 L 136/64 Blood Pressure [Ri ght Arm] Blood Pressure [Ri ght Upper Arm] Pulse Oximetry 83 L Oxygen Delivery Me thod 08/12/22 18:01 08/12/22 20:32 08/12/22 21:41 Temperature 100.0 F H Pulse Rate Pulse Rate [Pulse Oximeter] 90 Respiratory Rate 20 Blood Pressure 130/61 Blood Pressure [Ri ght Arm] 145/69 H Blood Pressure [Ri ght Upper Arm] Pulse Oximetry 98 98 Oxygen Delivery Me thod Room Air 08/12/22 22:23 08/13/22 02:44 08/12/22 23:00 Temperature 98.3 F Pulse Rate Pulse Rate [Pulse Oximeter] 88 73 Respiratory Rate 20 20 Blood Pressure Blood Pressure [Ri ght Arm] 153/69 H 139/61 Blood Pressure [Ri ght Upper Arm] Pulse Oximetry 99 93 93 Oxygen Delivery Me thod Room Air Room Air 08/13/22 07:00 08/13/22 07:00 08/13/22 07:00 Temperature 98.2 F Pulse Rate Pulse Rate [Pulse Oximeter] 75 75 Respiratory Rate 18 18 Blood Pressure Blood Pressure [Ri ght Arm] 121/50 L Blood Pressure [Ri ght Upper Arm] Pulse Oximetry 98 98 Oxygen Delivery Me thod Room Air Labs Labs: Laboratory Results - last 24 hr 08/12/22 08/12/22 08/13/22 15:41 16:00 06:42 WBC 16.40 H 15.32 H RBC 4.44 4.15 Hgb 12.8 11.9 L Hct 38.7 35.9 MCV 87 87 MCH 29 29 MCHC 33 33 RDW Coeff of Chin 13.7 13.6 Plt Count 195 195 Neut % (Auto) 79.6 H 76.6 H Lymph % (Auto) 13.8 L 15.1 L [place] % (Auto) 5.3 6.4 Eos % (Auto) 0.8 1.4 Baso % (Auto) 0.2 0.2 Neut # (Auto) 13.10 H 11.70 H Lymph # (Auto) 2.30 2.30 [place] # (Auto) 0.90 1.00 H Eos # (Auto) 0.10 0.20 Baso # (Auto) 0.00 0.00 Sodium 134 L 135 Potassium 3.8 4.4 Chloride 102 103 Carbon Dioxide 22 23 BUN 38 H 32 H Creatinine 1.8 H 1.5 Estimated Creat Clear 31.01 37.22 Estimated GFR 31 38 Glucose 125 H 132 H Hemoglobin A1c 7.02 H Lactate 1.9 Calcium 8.9 8.5 Total Bilirubin 2.0 H 1.4 AST 82 H 60 H ALT 31 28 Alkaline Phosphatase 97 83 C-Reactive Protein 22.4 H 20.1 H Total Protein 7.7 7.0 Albumin 3.9 3.5 Urine Color Yellow Urine Appearance Cloudy A Urine pH 5.0 Ur Specific [place] 1.025 Urine Protein 2+ A Urine Glucose (UA) Negative Urine Ketones Negative Urine Blood 2+ A Urine Nitrite Negative Urine Bilirubin Negative Urine Urobilinogen 0.2 Ur Leukocyte Esterase 3+ A Urine RBC 2-5 A Urine WBC 25-50 A Ur Squamous Epith Cells Moderate A Urine Bacteria Few A Fine Granular Casts Few A SARS-CoV-2 (PCR) Negative SARS-CoV-2
--- NOTE | 2022-08-13 11:27 | NUTR.NU ---
RDN with nutrition screen related to diet education for diabetes and low sodium. Patient has a history of CHF and new dx of DMT2, diet controlled. RDN visited with patient whom reported her diet has been going well at home. She declined diet education at this time. RDN encouraged patient to let staff know if she has any questions or would like diet education before discharge. RDN will continue to monitor.
[2022-08-13] MEDS: LOPERAMIDE HCL 2 MG CAPSULE PO (13:47)
[2022-08-13 15:00] VITALS: BP 114/53; PULSE 70; RESP 18; TEMP 36.7; O2SAT 97
[2022-08-13] MEDS: LACTOBACILLUS ACIDOPHILUS 1 TABLET 1 TAB PO (18:00)
[2022-08-13 19:45] VITALS: BP 136/71; PULSE 77; RESP 18; TEMP 36.9; O2SAT 96
--- NOTE | 2022-08-13 19:50 | PC.NURSE ---
End of shift note: Patient pleasant and cooperative.? A&Ox4.? Denied having pain in R. lower extremity d/t cellulitis.? Cellulitis outlined and remained within the drawn lines.? 2 bruises on R. thigh d/t fall at home.? Patient is a SBA/cane/GB.?Patients blood sugar was slightly elevated at lunch 156 and patient refused a unit of insulin. Prior to dinner BG was 88. Patient tolerating ambulating with her cane to the Bathroom and worked with PT and OT today.
[2022-08-13] MEDS: lisinopriL 10 MG TABLET 15 MG PO (21:59)
[2022-08-13] MEDS: METOPROLOL SUCCINATE (XL) 100 MG TAB PO (22:01)
[2022-08-13] MEDS: METOPROLOL SUCCINATE (XL) 50 MG TAB PO (22:02)
[2022-08-13] MEDS: hydroCHLOROthiazide 25 MG TABLET PO (22:03)
[2022-08-13] MEDS: ATORVASTATIN CALCIUM 40 MG TABLET PO (22:06)
[2022-08-13] MEDS: RIVAROXABAN 10 MG TABLET 15 MG PO (22:22)
[2022-08-13] MEDS: SODIUM CHLORIDE 0.9 % (FLUSH) 10 ML SYRINGE 5 ML IVF (22:29)
[2022-08-13 23:00] VITALS: BP 112/44; PULSE 78; RESP 16; RESP 18; O2SAT 94; O2SAT 96
[2022-08-14] VITALS (8 sets, daily range): BP systolic 124–129; BP diastolic 39–66; PULSE 58–77; RESP 14–18; TEMP 36.7–36.8; O2SAT 97–99
--- NOTE | 2022-08-14 05:58 | PC.NURSE ---
[id number] Shift Summary? [address] 66 Cellulitis? Pt up to BR x2 with cane and SBA. DM2 diet with 2000mL restriction. Cellulitis remains within marked lines. Benadryl added for mild itching to upper R calf but pt declined. IV abx given. On room air. Pain managed, declined PRN Tylenol. No loose BMs and no PRNs needed. BG 152 before bed but pt declined any SSI. ??
[2022-08-14] MEDS: CEFAZOLIN 1 GM in 0.9 % SODIUM CHLORIDE Mini-bag 100 ML IVPB ×3 (06:43→22:31)
[2022-08-14 07:35] LABS: Chloride* 106 mmol/L (96-114); Potassium* 4.4 mmol/L (3.6-5.1); Sodium* 136 mmol/L (135-149)
[2022-08-14 07:36] LABS: Basophils Absolute Auto 0.03 K/uL (0.00-0.30); Basophils Percent Auto 0.3 % (0.0-3.0); Eosinophils Absolute Auto 0.33 K/uL (0.00-0.50); Eosinophils Percent Auto 3.2 % (0.0-7.0); Hematocrit 34.4 % (33.0-51.0); Hemoglobin* 11.3 gm/dL (12.0-16.0); Immature Granulocytes Abs Auto 0.02 K/uL (0.00-0.30); Immature Granulocytes Pct Auto 0.2 %; Lymphocytes Absolute Auto 2.37 K/uL (0.90-2.90); Lymphocytes Percent Auto 22.9 % (20-44); Mean Corpuscular HGB Conc 33 gm/dL (32-36); Mean Corpuscular Hemoglobin 29 pg (26-34); Mean Corpuscular Volume 88 fL (80-100); Monocytes Percent Auto 8.4 % (0.0-11.0); Neutrophils Absolute Auto 6.72 K/uL (1.7-7.0); Platelet Count* 186 K/uL (140-440); RDW Coefficient of Variation % 13.7 % (11.5-15.5); Red Blood Count 3.91 m/uL (4.00-5.20); White Blood Count* 10.34 K/uL (4.50-11.00)
[2022-08-14 07:38] LABS: Blood Urea Nitrogen* 31 mg/dL (7-30); Carbon Dioxide* 27 mmol/L (20-32); Creatinine* 1.3 mg/dL (0.5-1.5); Est. Creatinine Clearance* 42.94; Estimated Glomerular Filt Rate 45 ml/min
[2022-08-14 07:39] LABS: Calcium* 8.4 mg/dL (8.4-10.6); Glucose* 135 mg/dL (60-115)
[2022-08-14 07:41] LABS: C Reactive Protein* 8.5 mg/dL (0.5-1.0)
[2022-08-14 07:48] LABS: Slide Review Reflex No
[2022-08-14] MEDS: LACTOBACILLUS ACIDOPHILUS 1 TABLET 1 TAB PO ×3 (08:17→17:45)
--- NOTE | 2022-08-14 12:38 | PM.IMPN1 ---
Progress Note: A&P Assessment and plan (1) Cellulitis of right lower extremity: Problem details: - Continue IV Ancef - CRP and WBC trending downward, continued clinical improvement - DVT unlikely, as anticoagulated with Xarelto Status: Acute (2) Controlled type 2 diabetes mellitus: Problem details: - HgbA1C 7 on 08/13/22 - ISS, diabetic diet Status: Chronic (3) Paroxysmal atrial fibrillation with rapid ventricular response: Problem details: -stable at this time, continue metoprolol and Xarelto Status: Chronic (4) Diastolic CHF with preserved left ventricular function, NYHA class 2: Problem details: - not currently in exacerbation - low Na diet and FR of 2000cc/day. - last TTE 11/2021: Final Impressions: 1. Technically limited exam. 2. The aortic valve is sclerotic and trileaflet, moderate stenosis and mild to moderate regurgitation. The aortic valve peak velocity is 2.9 m/s, the peak gradient is 34 mmHg, and the mean gradient is 20 mmHg. The aortic valve area is 1.32 cm?? with a dimensionless index of 0.35. The stroke volume index is 38.6 ml/m??. 3. Normal LV size, moderately increased wall thickness, normal global systolic function with an estimated EF of 60 - 65%. 4. Right ventricular cavity size is normal, global systolic RV function is normal. 5. Moderately enlarged left atrium. 6. The mitral valve is sclerotic, trace mitral regurgitation. 7. The ascending aorta is dilated with a maximal diameter of 4.0 cm. Comparison Compared to prior exam report of 04/2020, there has been no significant change. Status: Chronic (5) NICKOLAS (acute kidney injury): Problem details: - On admission, mild. Back to baseline 08/13 - Restarted HCTZ and Lisinopril 08/13, continue to follow renal function and electrolytes Status: Acute (6) Stage 3b chronic kidney disease: Problem details: - Baseline creatinine is approximately 1.2-1.5 Status: Chronic (7) Weakness: Problem details: - PT/OT following Status: Acute Plan - continue IV abx - anticipate home tomorrow on oral Keflex Subjective Date Seen: 08/14/22 Interval history: No acute events overnight. WBC and inflammatory markers trending downward. Renal function stable/baseline. Ambulating. No concerns for hospitalist team. Exam Narrative: Exam Narrative: GEN: Alert and sitting comfortably in bed, answering questions appropriately HEENT: EOMIs bilaterally, no scleral icterus CV: RRR, no concerning murmurs R: LCTA bilaterally, breathing comfortably Ext: 2+ pitting edema bilateral lower extremities, symmetric Skin:? Improvement in RLE erythema RLE, coil strapper in color and contained within outline from admission. No open skin lesions or drainage Neuro: No focal deficits, no resting tremor Psych: Appropriate Const: Vital Signs, click to edit/add: Vital Signs - 24 hr 08/13/22 15:00 08/13/22 15:00 08/13/22 15:00 Temperature 98.0 F Pulse Rate [Pulse Oximeter] 70 70 Respiratory Rate 18 18 Blood Pressure [Ri ght Arm] 114/53 L Blood Pressure [Ri ght Forearm] Pulse Oximetry 97 97 Oxygen Delivery Me thod Room Air 08/13/22 19:45 08/13/22 23:00 08/13/22 23:00 Temperature 98.4 F Pulse Rate [Pulse Oximeter] 77 78 Respiratory Rate 18 16 Blood Pressure [Ri ght Arm] 136/71 Blood Pressure [Ri ght Forearm] Pulse Oximetry 96 94 Oxygen Delivery Me thod Room Air 08/13/22 23:00 08/14/22 03:00 08/14/22 07:00 Temperature 98.1 F Pulse Rate [Pulse Oximeter] 78 60 Respiratory Rate 18 16 18 Blood Pressure [Ri ght Arm] 112/44 L 128/56 L Blood Pressure [Ri ght Forearm] Pulse Oximetry 96 98 Oxygen Delivery Me thod Room Air Room Air 08/14/22 07:30 08/14/22 07:00 08/14/22 07:00 Temperature 98.1 F Pulse Rate [Pulse Oximeter] 58 L 58 L Respiratory Rate 14 14 Blood Pressure [Ri ght Arm] Blood Pressure [Ri ght Forearm] 129/60 Pulse Oximetry 97 97 Oxygen Delivery Me thod Room Air 08/14/22 11:00 Temperature 98.3 F Pulse Rate [Pulse Oximeter] 61 Respiratory Rate 14 Blood Pressure [Ri ght Arm] Blood Pressure [Ri ght Forearm] 124/59 L Pulse Oximetry 99 Oxygen Delivery Me thod Room Air Labs Labs: Laboratory Results - last 24 hr 08/14/22 07:01 WBC 10.34 RBC 3.91 L Hgb 11.3 L Hct 34.4 MCV 88 MCH 29 MCHC 33 RDW Coeff of Chin 13.7 Plt Count 186 Neut % (Auto) 65.0 Lymph % (Auto) 22.9 [place] % (Auto) 8.4 Eos % (Auto) 3.2 Baso % (Auto) 0.3 Neut # (Auto) 6.72 Lymph # (Auto) 2.37 [place] # (Auto) 0.90 Eos # (Auto) 0.33 Baso # (Auto) 0.03 Sodium 136 Potassium 4.4 Chloride 106 Carbon Dioxide 27 BUN 31 H Creatinine 1.3 Estimated Creat Clear 42.94 Estimated GFR 45 Glucose 135 H Calcium 8.4 C-Reactive Protein 8.5 H
[2022-08-14] MEDS: SODIUM CHLORIDE 0.9 % (FLUSH) 10 ML SYRINGE 5 ML IVF ×2 (14:11→22:31)
--- NOTE | 2022-08-14 18:03 | PC.NURSE ---
End of Shift: Patient pleasant and cooperative. Patient vitally stable, lungs clear, BS WNL, IV intact. Patient independent/SBA. Patient denied pain, only pain in right leg with palpation. Right lower extremity is reddened and warm with 2+ pitting edema, cellulitis outlined. Patient tolerating diet and urinating. Patient refuses insulin. Blood sugars 121, 158, 94.
[2022-08-14] MEDS: lisinopriL 10 MG TABLET 15 MG PO (22:17)
[2022-08-14] MEDS: METOPROLOL SUCCINATE (XL) 50 MG TAB PO (22:17)
[2022-08-14] MEDS: METOPROLOL SUCCINATE (XL) 100 MG TAB PO (22:17)
[2022-08-14] MEDS: hydroCHLOROthiazide 25 MG TABLET PO (22:17)
[2022-08-14] MEDS: RIVAROXABAN 10 MG TABLET 15 MG PO (22:18)
[2022-08-14] MEDS: ATORVASTATIN CALCIUM 40 MG TABLET PO (22:18)
[2022-08-14] MEDS: ACETAMINOPHEN 325 MG TABLET 650 MG PO (22:30)
[2022-08-15 03:00] VITALS: BP 146/62; PULSE 63; RESP 18; TEMP 36.6; O2SAT 95
[2022-08-15 04:08] LABS: Basophils Absolute Auto 0.03 K/uL (0.00-0.30); Basophils Percent Auto 0.3 % (0.0-3.0); Eosinophils Absolute Auto 0.39 K/uL (0.00-0.50); Eosinophils Percent Auto 4.3 % (0.0-7.0); Hematocrit 33.5 % (33.0-51.0); Immature Granulocytes Abs Auto 0.06 K/uL (0.00-0.30); Immature Granulocytes Pct Auto 0.7 %; Lymphocytes Absolute Auto 2.39 K/uL (0.90-2.90); Lymphocytes Percent Auto 26.4 % (20-44); Mean Corpuscular HGB Conc 33 gm/dL (32-36); Mean Corpuscular Hemoglobin 29 pg (26-34); Mean Corpuscular Volume 88 fL (80-100); Monocytes Percent Auto 9.3 % (0.0-11.0); Neutrophils Absolute Auto 5.34 K/uL (1.7-7.0); Platelet Count* 185 K/uL (140-440); RDW Coefficient of Variation % 13.5 % (11.5-15.5); Red Blood Count 3.81 m/uL (4.00-5.20); White Blood Count* 9.05 K/uL (4.50-11.00)
[2022-08-15 04:09] LABS: Slide Review Reflex No
[2022-08-15 04:21] LABS: Chloride* 105 mmol/L (96-114); Potassium* 4.1 mmol/L (3.6-5.1); Sodium* 135 mmol/L (135-149)
[2022-08-15 04:24] LABS: Blood Urea Nitrogen* 30 mg/dL (7-30); Carbon Dioxide* 24 mmol/L (20-32); Creatinine* 1.3 mg/dL (0.5-1.5); Est. Creatinine Clearance* 42.94; Estimated Glomerular Filt Rate 45 ml/min
[2022-08-15 04:25] LABS: Calcium* 8.3 mg/dL (8.4-10.6); Glucose* 126 mg/dL (60-115)
[2022-08-15 07:00] VITALS: BP 129/68; PULSE 62; RESP 18; TEMP 36.7; O2SAT 98
[2022-08-15] MEDS: CEFAZOLIN 1 GM in 0.9 % SODIUM CHLORIDE Mini-bag 100 ML IVPB (07:29)
[2022-08-15] MEDS: LACTOBACILLUS ACIDOPHILUS 1 TABLET 1 TAB PO ×2 (08:00→11:59)
[2022-08-15] MEDS: NITROFURANTOIN MONOHYD MACRO 100 MG CAPSULE PO (09:41)
[2022-08-15 11:00] VITALS: BP 119/48; PULSE 64; RESP 18; TEMP 36.6; O2SAT 98
--- NOTE | 2022-08-15 12:49 | PM.DS1 ---
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 Problem details: - noted on urine culture obtained 08/12/2022, patient minimally symptomatic - given sensitivities, cover with Bactrim upon discharge (3) Postmenopausal vaginal bleeding: Status: Acute Problem details: - noted incidentally on day of discharge, mild; possibly related to UTI - patient did not have any cramping or significant anemia (hemoglobin 11.0) - given limitations for pelvic exams in the hospital setting and overall stability, recommend outpatient follow-up for this - given mild symptoms and stable hemoglobin, did not hold anticoagulation upon discharge (4) Paroxysmal atrial fibrillation with rapid ventricular response: Status: Chronic Problem details: - stable at this time, continue metoprolol and Xarelto (5) NICKOLAS (acute kidney injury): Status: Acute Problem details: - On admission, mild. Back to baseline during stay, discharge hemoglobin 1.3 (6) Stage 3b chronic kidney disease: Status: Chronic Problem details: - Baseline creatinine is approximately 1.2-1.5 (7) Controlled type 2 diabetes mellitus: Status: Chronic Problem details: - HgbA1C 7 on 08/13/22 - ISS, diabetic diet DS: Summary Hospital Course Hospital Course: Very pleasant 67-year-old female with history of diabetes, presented to the hospital for right lower extremity cellulitis. There was no open wound or sore for culture; she was initiated on IV Ancef and and improved both subjectively and objectively. Although patient is anticoagulated, ultrasound was obtained given lower extremity edema. This was negative for acute DVT. Patient noted to have mild vaginal spotting on day of discharge without other symptoms. This could be related to UTI, although does need workup given postmenopausal status. She is comfortable seeing her PCP to discuss this further upon discharge. The rest of Chelo's comorbidities remained stable, no changes made to home medications. Status at Discharge Functional status at discharge: independent ambulation Overall status at discharge: patient is progressing back to baseline Time Spent with Patient Time attestation: Total time spent providing and/or coordinating discharge services: Time spent: Greater than 30 minutes Specific discharge activities: Medication reconciliation, results review, discharge f/u plan Exam Narrative: Exam Narrative: GEN: Alert and oriented, sitting comfortably in bed and nontoxic in HEENT: EOMIs bilaterally, no scleral icterus CV: RRR, soft systolic murmur without concerning features R: LCTA bilaterally without concerning wheezing, air movement adequate Ext: 2-3+ edema bilateral lower extremities, R>L : deferred Skin: Erythema of right lower extremity continues to improve, no open skin lesions or wounds, no crepitus, no fluctuance Neuro: Nonfocal Psych: Appropriate Const: Vital Signs, click to edit/add: Vital Signs - 24 hr 08/14/22 15:00 08/14/22 15:00 08/14/22 15:00 Temperature 98.2 F Pulse Rate [Pulse Oximeter] 66 66 Respiratory Rate 14 14 Blood Pressure [Ri ght Forearm] 127/39 L Pulse Oximetry 99 99 Oxygen Delivery Me thod Room Air 08/14/22 20:15 08/14/22 22:51 08/14/22 23:00 Temperature 98.2 F 98.3 F Pulse Rate [Pulse Oximeter] 68 77 Respiratory Rate 16 16 16 Blood Pressure [Ri ght Forearm] 127/66 125/48 L Pulse Oximetry 99 98 Oxygen Delivery Me thod Room Air Room Air 08/15/22 03:00 08/15/22 07:00 08/15/22 07:00 Temperature 97.8 F 98.1 F Pulse Rate [Pulse Oximeter] 63 62 62 Respiratory Rate 18 18 18 Blood Pressure [Ri ght Forearm] 146/62 H 129/68 Pulse Oximetry 95 98 Oxygen Delivery Me thod Room Air Room Air 08/15/22 11:00 Temperature 97.8 F Pulse Rate [Pulse Oximeter] 64 Respiratory Rate 18 Blood Pressure [Ri ght Forearm] 119/48 L Pulse Oximetry 98 Oxygen Delivery Me thod Room Air DS: Data Data Completed and Pending Labs on day of discharge: Labs from last 24 hours 08/15/22 04:00 WBC 9.05 RBC 3.81 L Hgb 11.0 L Hct 33.5 MCV 88 MCH 29 MCHC 33 RDW Coeff of Chin 13.5 Plt Count 185 Neut % (Auto) 59.0 Lymph % (Auto) 26.4 Kershaw % (Auto) 9.3 Eos % (Auto) 4.3 Baso % (Auto) 0.3 Neut # (Auto) 5.34 Lymph # (Auto) 2.39 Kershaw # (Auto) 0.80 Eos # (Auto) 0.39 Baso # (Auto) 0.03 Sodium 135 Potassium 4.1 Chloride 105 Carbon Dioxide 24 BUN 30 Creatinine 1.3 Estimated Creat Clear 42.94 Estimated GFR 45 Glucose 126 H Calcium 8.3 L Preliminary micro results at discharge 08/12/22 16:00 Blood Culture - Preliminary Blood NO GROWTH AFTER 48 HOURS FINDINGS: Sonographic imaging of the right lower extremity demonstrates normal compressibility and color Doppler venous blood flow within the common femoral vein, deep femoral vein, and the proximal greater saphenous vein. Within the thigh, the femoral vein is patent and compressible. At a lower level, the popliteal and posterior tibial veins also show normal compressibility and color Doppler venous blood flow. Limited imaging of the contralateral groin demonstrates a normal spectral waveform and color Doppler venous blood flow within the left common femoral vein. IMPRESSION: No evidence of deep vein thrombosis within the right lower extremity. Dictated by Smith Gilman MD @ 08/15/2022 10:16:39 AM Discharge Plan Discharge Disposition: Home, Self-Care Date of Admission: 08/12/22 20:31 Attending Provider on Discharge: Maddy Puentes Primary Care Provider: Provider,Not a Local Condition: Improved Anticipated Discharge Date/Time: 08/15/22 14:00 Discharge Medications: New cephalexin 500 mg capsule 500 mg PO TID 7 Days Qty: 21 0RF sulfamethoxazole-trimethoprim [Bactrim DS] 800-160 mg tablet 1 tab PO Q12H Qty: 14 0RF Continued atorvastatin 40 mg tablet 40 mg PO HS metoprolol succinate 100 mg tablet extended release 24 hr 100 mg PO HS hydrochlorothiazide 25 mg tablet 25 mg PO HS Xarelto 15 mg tablet 15 mg PO HS cholecalciferol (vitamin D3) [Vitamin D3] 125 mcg (5,000 unit) tablet 5,000 unit PO HS vitamin B complex [B Complex-Vitamin B12] PO turmeric PO cyanocobalamin (vitamin B-12) 1,000 mcg tablet 1,000 mcg PO DAILY lisinopril 10 mg tablet 15 mg PO HS metoprolol succinate 50 mg tablet extended release 24 hr 50 mg PO HS Discharge Orders: Discharge Order (Routine); Ordered 08/15/22 Ordered By: Maddy Puentes Patient Education: Cephalexin (By mouth), Sulfamethoxazole/Trimethoprim (By mouth) Additional Instructions: Continue Keflex three times/day with food. You're also going on a different antibiotic for your urine (this si twice a day). Make sure you add a probiotic in 1-2 times/day while on antibiotics. See Dr. Yousif at [facility] in 7-10 days for followup (to discuss vaginal bleeding, recheck labs). Make sure to keep leg elevated during the day (can use MANNIE wraps as needed and your compression boots as well). Activity Level: Activity as Tolerated and No strenuous activity Discharge Diet: Diabetic Follow Up Appointments: Amy Carrasco MD [Staff Physician] - (f/u in 5-10 days at [facility] f/u for cellulitis)) Provider,Not a Local [Primary Care Provider] - (Amy Yousif at [facility] f/u in 7-10 days) Forms: [employer] Info Instructions
--- NOTE | 2022-08-15 16:23 | PC.NURSE ---
Discharge: Patient pleasant and cooperative. Patient vitally stable, lungs clear, BS WNL, IV removed, catheter intact. Patient denies pain. Patient independent in room. Right leg continues to be reddened, warm, and inflamed. Patient urinating, had 2 soft BM's, and tolerating regular diet. Blood sugars 117 and 158. Patient signed belongings sheet and discharge form. Patient left the floor by wheelchair to home at 1555.
== END 2022-08-15 15:55 | disposition home or self-care (01) | DRG 603 ==
LOC: ED 18:24 → MEDSURG 18:51
PROVIDERS: Family Medicine; Admitting Provider Family Medicine; Emergency Provider Family Medicine; Visit Provider Family Medicine
DX: L03.115 Cellulitis of right lower limb (principal); N39.0 Urinary tract infection, site not specified; Z16.12 Extended spectrum beta lactamase (ESBL) resistance; N17.9 Acute kidney failure, unspecified; I13.0 Hypertensive heart and chronic kidney disease with heart failure and stage 1 through stage 4 chronic kidney disease, or unspecified chronic kidney disease; I50.30 Unspecified diastolic (congestive) heart failure; I43 Cardiomyopathy in diseases classified elsewhere; Z68.42 Body mass index [BMI] 45.0-49.9, adult; B96.1 Klebsiella pneumoniae [K. pneumoniae] as the cause of diseases classified elsewhere; N18.32 Chronic kidney disease, stage 3b; E11.22 Type 2 diabetes mellitus with diabetic chronic kidney disease; E03.9 Hypothyroidism, unspecified; E78.5 Hyperlipidemia, unspecified; E66.01 Morbid (severe) obesity due to excess calories; I48.0 Paroxysmal atrial fibrillation; Z79.01 Long term (current) use of anticoagulants; I35.2 Nonrheumatic aortic (valve) stenosis with insufficiency; N95.0 Postmenopausal bleeding
CPT/HCPCS: 36415; 80048; 80053; 81001; 82962; 83036; 83605; 85025; 86140; 87040; 87086; 87186; 87635; 93971; 97116; 97161; 97165; 99284; A9270; J0690; J7050

== ENCOUNTER 2022-11-01 11:15 | Emergency (ER) | payer MEDICARE, OTHER, MEDICAID, SELFPAY ==
[2022-11-01 11:27] VITALS: BP 132/96; PULSE 86; RESP 24; TEMP 37; O2SAT 97; BMI 46.5
--- NOTE | 2022-11-01 11:46 | ED_ITS ---
HPI - General Adult General Chief complaint: Skin/Abscess/Foreign Body Stated complaint: Cellulitis Time Seen by Provider: 11/01/22 11:21 Source: patient Mode of arrival: ambulatory Limitations: no limitations History of Present Illness HPI narrative: 67-year-old female coming in today concerned about cellulitis. Patient has a complex medical history which includes he has cellulitis of the lower extremities. She states that approximate 10 hours ago she noticed that her right lower extremity was sore, hot to touch and red. She states that she had cellulitis in July of this year her and left her lower extremity chronically pink, she states that the redness she noticed today was much brighter, she really can not tell me if it is spreading up the leg or not. She denies fevers, changes in her appetite, malaise or fatigue and that is abnormal for her. She states that she felt chilled in the middle of the night last night, nothing since. No nausea or vomiting. Related Data Home Medications Medication Instructions Recorded Confirmed atorvastatin 40 mg tablet 40 mg PO HS 02/02/22 11/01/22 hydrochlorothiazide 25 mg tablet 25 mg PO HS 02/02/22 11/01/22 metoprolol succinate 100 mg 100 mg PO HS 02/02/22 11/01/22 tablet,extended release 24 hr rivaroxaban 15 mg tablet (Xarelto) 15 mg PO HS 02/02/22 11/01/22 cholecalciferol (vitamin D3) 125 5,000 unit PO HS 08/12/22 11/01/22 mcg (5,000 unit) tablet (Vitamin D3) cyanocobalamin (vitamin B-12) 1,000 mcg PO DAILY 08/12/22 11/01/22 1,000 mcg tablet lisinopril 10 mg tablet 15 mg PO HS 08/12/22 11/01/22 metoprolol succinate 50 mg 50 mg PO HS 08/12/22 11/01/22 tablet,extended release 24 hr turmeric PO 08/12/22 Previous Rx's Medication Instructions Recorded cephalexin 500 mg capsule 500 mg PO TID 7 days #21 caps 11/01/22 Allergies Allergy/AdvReac Type Severity Reaction Status Date / Time gabapentin AdvReac Mild Anxiety Verified 11/01/22 11:23 vancomycin AdvReac itch Verified 11/01/22 11:23 Review of Systems Status of ROS: Reports: 10 or more systems reviewed and unremarkable except as noted in History and below [facility] Medical History 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) Bilateral lower extremity edema ?R60.0 - Localized edema (ICD-10) Family history of clotting disorder ?Z83.2 - Family history of diseases of the blood and blood-forming organs and certain disorders involving the immune mechanism (ICD-10) Controlled type 2 diabetes mellitus ?E11.9 - Type 2 diabetes mellitus without complications (ICD-10) Hypothyroidism ?E03.9 - Hypothyroidism, unspecified (ICD-10) Anemia ?D64.9 - Anemia, unspecified (ICD-10) Cellulitis of left lower extremity without foot ?L03.116 - Cellulitis of left lower limb (ICD-10) Acute appendicitis with appendiceal abscess ?K35.33 - Acute appendicitis with perforation, localized peritonitis, and gangrene, with abscess (ICD-10) Diastolic CHF with preserved left ventricular function, NYHA class 2 ?I50.30 - Unspecified diastolic (congestive) heart failure (ICD-10) Mild mitral regurgitation ?I34.0 - Nonrheumatic mitral (valve) insufficiency (ICD-10) Mild left ventricular hypertrophy ?I51.7 - Cardiomegaly (ICD-10) Mild aortic insufficiency ?I35.1 - Nonrheumatic aortic (valve) insufficiency (ICD-10) Hypertensive cardiomyopathy ?I11.9 - Hypertensive heart disease without heart failure (ICD-10) ?I43 - Cardiomyopathy in diseases classified elsewhere (ICD-10) Mild aortic stenosis ?I35.0 - Nonrheumatic aortic (valve) stenosis (ICD-10) Stage 3b chronic kidney disease ?N18.32 - Chronic kidney disease, stage 3b (ICD-10) Morbidly obese ?E66.01 - Morbid (severe) obesity due to excess calories (ICD-10) Paroxysmal atrial fibrillation with rapid ventricular response ?I48.0 - Paroxysmal atrial fibrillation (ICD-10) Hypertension ?I10 - Essential (primary) hypertension (ICD-10) Hyperlipidemia ?E78.5 - Hyperlipidemia, unspecified (ICD-10) Surgical History S/P laparoscopic appendectomy (~06/2019) ?Z90.49 - Acquired absence of other specified parts of digestive tract (ICD- 10) Family History Brother Coronary artery disease High cholesterol Father Coronary artery disease Sister Diabetes Mother High blood pressure Social History Narrative: Smoked 40 pack-years, quit in 2012. Drinks 2-3 drinks per year. Denies recreational drug use. Highest level of school completed/degree received: some college, no degree Smoking Status: Former smoker Do you use any of these nicotine containing products: None Second hand tobacco smoke exposure: No How often do you have a drink containing alcohol: never How often do you have six or more drinks on one occasion: Never AUDIT-C Alcohol total score: 0 Non-prescribed substance use: denies use Caffeine: Yes service: No Exam Narrative: Exam Narrative: Morbidly obese patient in no acute distress. Alert and oriented. Answers questions appropriately. Mood and affect are appropriate. Thoughts are goal oriented and rational. No tangential or magical thinking noted. Patient speaks in full sentences without needing to catch her breath. HEENT: Normocephalic atraumatic. Edentulous. Pupils are equally round reactive to light. Extraocular muscles are intact. Conjunctivae are moist without any icterus noted. Moist mucous membranes. Cardiovascular: Heart is regular rate and rhythm S1 and S2 are present with a soft 2/6 systolic murmur. Lungs: Clear to auscultation bilaterally no wheezes rhonchi or rales are appreciated. Patient takes deep breaths without any discomfort. Extremities: Bilateral lower extremities are without pitting edema. Right lower extremity has circumferential erythema from the ankle to just below the knee. She has an area over the schilling that is deeper red than the rest of the erythema present, the entire area is very hot to touch. Skin is indurated over that area. Const: Vital Signs, click to edit/add: Vital Signs - 24 hr 11/01/22 11:27 Temperature 98.6 F Pulse Rate [Pulse Oximeter] 86 Respiratory Rate 24 Blood Pressure [Ri ght Forearm] 132/96 H Pulse Oximetry 97 Oxygen Delivery Me thod Room Air Course Vital Signs Vital signs: Initial Vital Signs Temperature 98.6 F 11/01/22 11:27 Temperature Source Temporal Artery Scan 11/01/22 11:27 Pulse Rate 86 11/01/22 11:27 Respiratory Rate 24 11/01/22 11:27 Blood Pressure 132/96 H 11/01/22 11:27 Blood Pressure Mean 108 H 11/01/22 11:27 Blood Pressure Position Semi-Fowlers 11/01/22 11:27 Pulse Oximetry 97 11/01/22 11:27 Oxygen Delivery Method Room Air 11/01/22 11:27 Vital Signs Temperature 98.6 F 11/01/22 11:27 Pulse Rate 86 11/01/22 11:27 Respiratory Rate 24 11/01/22 11:27 Blood Pressure 132/96 H 11/01/22 11:27 Pulse Oximetry 97 11/01/22 11:27 Oxygen Delivery Method Room Air 11/01/22 11:27 Temperature 98.6 F 11/01/22 11:27 Pulse Rate 86 11/01/22 11:27 Respiratory Rate 24 11/01/22 11:27 Blood Pressure 132/96 H 11/01/22 11:27 Pulse Oximetry 97 11/01/22 11:27 Oxygen Delivery Method Room Air 11/01/22 11:27 Medical Decision Making MDM Narrative Medical decision making narrative: 67-year-old female with cellulitis. Will treat with Rocephin IM x1 in the ER today followed with soumya Morris. Outline of the red area was done today. She is to return to the ER if redness continues to spread over the next two days. Otherwise, she can follow up with primary care provider next week. Of note, she did require hospitalization in July for her cellulitis, however at that time she was experiencing systemic symptoms and had a temperature of a 101?. Given the fact that she just noticed increasing redness 10 hours ago and that she has not had any systemic symptoms aside from 1 episode of chills, I think that outpatient treatment at this time is reasonable with close follow-up and a low threshold to return. Medical Records Medical records reviewed: Yes I reviewed the patient's medical records Discharge Plan Discharge Clinical Impression: Cellulitis Patient Disposition: Home, Self-Care Condition: Stable Additional Instructions: You should follow-up with your primary care provider early next week. If you feel like the redness is spreading or you develop fever, vomiting, or extreme fatigue then you should return to the emergency room. You can take your 1st dose of antibiotic this evening. Prescriptions: New cephalexin 500 mg capsule 500 mg PO TID 7 Days Qty: 21 0RF No Action atorvastatin 40 mg tablet 40 mg PO HS metoprolol succinate 100 mg tablet extended release 24 hr 100 mg PO HS hydrochlorothiazide 25 mg tablet 25 mg PO HS Xarelto 15 mg tablet 15 mg PO HS cholecalciferol (vitamin D3) [Vitamin D3] 125 mcg (5,000 unit) tablet 5,000 unit PO HS turmeric PO cyanocobalamin (vitamin B-12) 1,000 mcg tablet 1,000 mcg PO DAILY lisinopril 10 mg tablet 15 mg PO HS metoprolol succinate 50 mg tablet extended release 24 hr 50 mg PO HS Follow Up/Referrals: Provider,Not a Local [Primary Care Provider] - Stand Alone Forms: [employer] Info Instructions
[2022-11-01] MEDS: cefTRIAXone 1 GM VIAL IM (12:09)
[2022-11-01] MEDS: LIDOCAINE 1% 5 ml (pf) 5 ML VIAL 2.1 ML IM (12:09)
[2022-11-01 12:40] VITALS: BP 123/43; PULSE 80
--- NOTE | 2022-11-01 13:45 | ED.NURSE ---
check on pt in the lobby pt stated she is still waiting on a ride no idea when they will get here no complains at this time.
--- NOTE | 2022-11-01 14:10 | ED.NURSE ---
checked on pt in the lobby, assisted pt to make a phone call to family, pt stated family member should here in about 15 min
== END 2022-11-01 12:37 | disposition home or self-care (01) ==
PROVIDERS: Emergency Provider Family Medicine
DX: L03.115 Cellulitis of right lower limb (principal)
CPT/HCPCS: 96372; 99283; 99284; J0696

== ENCOUNTER 2024-01-23 18:20 | Inpatient (IN) | payer MEDICARE, OTHER, SELFPAY ==
[2024-01-23] VITALS (17 sets, daily range): BP systolic 81–118; BP diastolic 33–66; PULSE 66–81; RESP 14–20; TEMP 36.5–36.8; O2SAT 96–100; BMI 50.7; BMI 51.3
--- NOTE | 2024-01-23 18:48 | ED.GENADULT ---
HPI - General Adult General Date Seen: 01/23/24 Chief complaint: Skin/Abscess/Foreign Body Stated complaint: weakness, Time Seen by Provider: 01/23/24 18:36 Source: patient Mode of arrival: ambulatory Limitations: no limitations History of Present Illness HPI narrative: Patient is a 69-year-old female presenting to emergency department for weakness and cellulitis. She has had issues with cellulitis and lower extremities before. Noticed this morning there is a red sami on her right lower extremity on the lateral distal aspect. She is also feeling very fatigued at that time. States she is having some shortness of breath with exertion that improvement she lay down. She believed the shortness of breath was related to her not feeling well. Has not had any chest pain. She did not have a fever this morning but they did sami the area and has since grown all the way up to her knee. She states actually her weakness and fatigue feels much better than it was earlier but she is still concerned because she had a fever of 101 at about 17:00. She then took Tylenol. Denies chest pain, abdominal pain, lightheadedness, dizziness, headache, vision changes, diarrhea, constipation, dysuria. Currently states she does not feel short of breath. Does not have a fever at this time Related Data Home Medications ?Medication ?Instructions ?Recorded ?Confirmed atorvastatin 40 mg tablet 40 mg PO HS 02/02/22 11/01/22 hydrochlorothiazide 25 mg tablet 25 mg PO HS 02/02/22 11/01/22 metoprolol succinate 100 mg 100 mg PO HS 02/02/22 11/01/22 tablet,extended release 24 hr rivaroxaban 15 mg tablet (Xarelto) 15 mg PO HS 02/02/22 11/01/22 cholecalciferol (vitamin D3) 125 5,000 unit PO HS 08/12/22 11/01/22 mcg (5,000 unit) tablet (Vitamin D3) cyanocobalamin (vitamin B-12) 1,000 mcg PO DAILY 08/12/22 11/01/22 1,000 mcg tablet lisinopril 10 mg tablet 15 mg PO HS 08/12/22 11/01/22 metoprolol succinate 50 mg 50 mg PO HS 08/12/22 11/01/22 tablet,extended release 24 hr turmeric PO 08/12/22 Previous Rx's ?Medication ?Instructions ?Recorded cephalexin 500 mg capsule 500 mg PO TID 7 days #21 caps 11/01/22 Allergies Allergy/AdvReac Type Severity Reaction Status Date / Time gabapentin AdvReac Mild Anxiety Verified 11/01/22 11:23 vancomycin AdvReac itch Verified 11/01/22 11:23 Review of Systems Status of ROS: Reports: 10 or more systems reviewed and unremarkable except as noted in History and below [facility] Medical History 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) Bilateral lower extremity edema ?R60.0 - Localized edema (ICD-10) Family history of clotting disorder ?Z83.2 - Family history of diseases of the blood and blood-forming organs and certain disorders involving the immune mechanism (ICD-10) Controlled type 2 diabetes mellitus ?E11.9 - Type 2 diabetes mellitus without complications (ICD-10) Hypothyroidism ?E03.9 - Hypothyroidism, unspecified (ICD-10) Anemia ?D64.9 - Anemia, unspecified (ICD-10) Cellulitis of left lower extremity without foot ?L03.116 - Cellulitis of left lower limb (ICD-10) Acute appendicitis with appendiceal abscess ?K35.33 - Acute appendicitis with perforation, localized peritonitis, and gangrene, with abscess (ICD-10) Diastolic CHF with preserved left ventricular function, NYHA class 2 ?I50.30 - Unspecified diastolic (congestive) heart failure (ICD-10) Mild mitral regurgitation ?I34.0 - Nonrheumatic mitral (valve) insufficiency (ICD-10) Mild left ventricular hypertrophy ?I51.7 - Cardiomegaly (ICD-10) Mild aortic insufficiency ?I35.1 - Nonrheumatic aortic (valve) insufficiency (ICD-10) Hypertensive cardiomyopathy ?I11.9 - Hypertensive heart disease without heart failure (ICD-10) ?I43 - Cardiomyopathy in diseases classified elsewhere (ICD-10) Mild aortic stenosis ?I35.0 - Nonrheumatic aortic (valve) stenosis (ICD-10) Stage 3b chronic kidney disease ?N18.32 - Chronic kidney disease, stage 3b (ICD-10) Morbidly obese ?E66.01 - Morbid (severe) obesity due to excess calories (ICD-10) Paroxysmal atrial fibrillation with rapid ventricular response ?I48.0 - Paroxysmal atrial fibrillation (ICD-10) Hypertension ?I10 - Essential (primary) hypertension (ICD-10) Hyperlipidemia ?E78.5 - Hyperlipidemia, unspecified (ICD-10) Surgical History S/P laparoscopic appendectomy (~06/2019) ?Z90.49 - Acquired absence of other specified parts of digestive tract (ICD-10) Family History Brother Coronary artery disease High cholesterol Father Coronary artery disease Sister Diabetes Mother High blood pressure Social History Narrative: Smoked 40 pack-years, quit in 2012. Drinks 2-3 drinks per year. Denies recreational drug use. Highest level of school completed/degree received: some college, no degree Smoking Status: Former smoker Do you use any of these nicotine containing products: None Second hand tobacco smoke exposure: No How often do you have a drink containing alcohol: never How often do you have six or more drinks on one occasion: Never AUDIT-C Alcohol total score: 0 Non-prescribed substance use: denies use Caffeine: Yes service: No Exam Narrative: Exam Narrative: Const: Well-nourished, Well-developed, in mild distress Eyes: PERRL, no conjunctival injection, and symmetrical lids HENT: Atraumatic external nose and ears. Moist mucous membranes. Neck: Symmetric, trachea midline, No thyromegaly. CVS: RRR, No murmurs or gallops. Peripheral pulses 2+ and equal in all extremities RESP: Unlabored respiratory effort. Clear to auscultation bilaterally. GI: Nontender/Nondistended, No rebound or guarding. MSK:Extremities w/o deformity, Normal Active ROM Skin: Erythema noted to entire right lower extremity below the knee. Central 3 cm x 3 cm dark her area to the distal lateral right lower extremity with a small skin opening in the center. Neuro: Normal Muscle tone, No focal neurological deficits. Psych: Awake, Alert, & Oriented x3. Appropriate mood and affect. Const: Vital Signs, click to edit/add: Vital Signs - 24 hr 01/23/24 18:33 01/23/24 18:42 01/23/24 18:43 Temperature 97.7 F Pulse Rate 78 78 Pulse Rate [Pulse Oximeter] 81 Respiratory Rate 14 Blood Pressure 89/48 L Blood Pressure [Le ft Forearm] 81/52 L Pulse Oximetry 97 99 98 Oxygen Delivery Me thod Room Air 01/23/24 18:45 01/23/24 19:00 01/23/24 19:01 Temperature Pulse Rate 74 76 74 Pulse Rate [Pulse Oximeter] Respiratory Rate Blood Pressure 98/51 L Blood Pressure [Le ft Forearm] Pulse Oximetry 97 99 99 Oxygen Delivery Me thod 01/23/24 19:15 01/23/24 19:31 01/23/24 19:36 Temperature Pulse Rate 73 70 Pulse Rate [Pulse Oximeter] Respiratory Rate Blood Pressure 113/50 L Blood Pressure [Le ft Forearm] Pulse Oximetry 100 96 Oxygen Delivery Me thod Course Vital Signs Vital signs: Initial Vital Signs Temperature 97.7 F 01/23/24 18:33 Temperature Source Temporal Artery Scan 01/23/24 18:33 Pulse Rate 81 01/23/24 18:33 Pulse Rhythm Regular 01/23/24 18:33 Respiratory Rate 14 01/23/24 18:33 Blood Pressure 81/52 L 01/23/24 18:33 Blood Pressure Mean 61 L 01/23/24 18:33 Blood Pressure Position Supine 01/23/24 18:33 Pulse Oximetry 97 01/23/24 18:33 Oxygen Delivery Method Room Air 01/23/24 18:33 Vital Signs Temperature 97.7 F 01/23/24 18:33 Pulse Rate 81 01/23/24 18:33 Respiratory Rate 14 01/23/24 18:33 Blood Pressure 81/52 L 01/23/24 18:33 Pulse Oximetry 97 01/23/24 18:33 Oxygen Delivery Method Room Air 01/23/24 18:33 Temperature 97.7 F 01/23/24 18:33 Pulse Rate 70 01/23/24 19:36 Respiratory Rate 14 01/23/24 18:33 Blood Pressure 113/50 L 01/23/24 19:31 Pulse Oximetry 96 01/23/24 19:36 Oxygen Delivery Method Room Air 01/23/24 18:33 Medications Administered Medications: Generic Name Dose Route Start Last Admin Trade Name Freq PRN Reason Stop Dose Admin Sodium Chloride 1,000 mls @ 1,000 mls/hr 01/23/24 19:15 01/23/24 19:35 0.9 % Sodium Chloride 1000 Ml IV 01/23/24 21:02 1,000 mls/hr .Q1H EMERY Administration Discontinued Medications Generic Name Dose Route Start Last Admin Trade Name [place] PRN Reason Stop Dose Admin Lactated Ringer's 1,000 mls @ 1,000 mls/hr 01/23/24 18:46 01/23/24 19:00 Lactated Ringers 1000 Ml IV 01/23/24 19:45 Not Given .Q1H ONE Sodium Chloride 1,000 mls @ 1,000 mls/hr 01/23/24 19:00 01/23/24 19:32 0.9 % Sodium Chloride 1000 Ml IV 01/23/24 19:59 Infused .Q1H EMERY Infusion Clindamycin Phosphate 600 mg in 50 mls @ 100 mls/hr 01/23/24 19:07 01/23/24 19:38 Clindamycin 600 Mg/50 Ml-[id number] IVPB 01/23/24 19:36 100 mls/hr ONCE ONE Administration Ondansetron HCl 4 mg 01/23/24 18:46 01/23/24 18:58 Ondansetron 2 Mg/Ml Inj IVP 01/23/24 18:47 Not Given ONCE ONE Medical Decision Making MDM Narrative Medical decision making narrative: Patient is a 69-year-old female presenting to the emergency department for cellulitis. Her to a right lower extremity below the knee is red and cellulitic. She is hypotensive but feeling well at this time. Also she is obese and I do not believe we are getting accurate blood pressures due to that. Either way though she did have a fever earlier and I will treat her as septic. 30 per mL per kg of fluids were ordered. I did use her adjusted body weight instead of her actual body weight due to her obesity and not wanting to fluid overload her. Will order blood cultures. We can only order 1 set at this time due to shortage. Lactate, BMP, CBC, troponin, EKG all ordered. Or shortness of breath seems most likely related to the cellulitis and infection rather than any PE or lung issue. She has not appear short of breath at this time and is satting well on room air. Will start clindamycin while waiting for labs to return. CBC returns with a white count 23.24 and mostly neutrophil predominant. She now meets sepsis criteria. Lactate is 2.8. Lab Data Labs: Lab Results 01/23/24 01/23/24 Range/Units 18:54 19:02 WBC 23.24 H (4.50-11.00) K/uL RBC 4.39 (4.00-5.20) m/uL Hgb 12.9 (12.0-16.0) gm/dL Hct 39.1 (33.0-51.0) % MCV 89 (80-100) fL MCH 29 (26-34) pg MCHC 33 (32-36) gm/dL RDW Coeff of Chin 13.5 (11.5-15.5) % Plt Count 191 (140-440) K/uL Neut % (Auto) 91.7 H (42.0-72.0) % Lymph % (Auto) 3.7 L (20-44) % [place] % (Auto) 3.9 (0.0-11.0) % Eos % (Auto) 0.0 (0.0-7.0) % Baso % (Auto) 0.1 (0.0-3.0) % Neut # (Auto) 21.30 H (1.7-7.0) K/uL Lymph # (Auto) 0.90 (0.90-2.90) K/uL [place] # (Auto) 0.90 (0.00-0.90) K/UL Eos # (Auto) 0.00 (0.00-0.50) K/uL Baso # (Auto) 0.00 (0.00-0.30) K/uL Abs Immat Gran (auto) 0.10 (0.00-0.30) K/uL Imm/Tot Granulo (auto) 0.6 % Sodium 129 L (135-149) mmol/L Potassium 5.1 (3.6-5.1) mmol/L Chloride 101 (96-114) mmol/L Carbon Dioxide 19 L (20-32) mmol/L Anion Gap 9 (7-15) mEq/L BUN 50 H (7-30) mg/dL Creatinine 1.9 H (0.5-1.5) mg/dL Estimated Creat Clear 26.53 Estimated GFR 28 ml/min Glucose 214 H (60-115) mg/dL Lactate 2.8 H (0.5-1.9) mmol/L Calcium 9.3 (8.4-10.6) mg/dL Magnesium 1.7 (1.5-2.6) mg/dL Troponin I 0.02 (0.01-0.04) ng/mL SARS-CoV-2 (PCR) Negative SARS-CoV-2 (Negative) Influenza Type A (PCR) Negative PCR FLU A (Negative) Influenza Type B (PCR) Negative PCR FLU B (Negative) ECG Data Attestation: I personally reviewed and interpreted this ECG as follows: Prior ECG tracings: available for review Interpretation: Normal sinus rhythm will with rate 68 beats per minute, inverted T-waves in the 3. Flattened lateral T-waves. Normal intervals, normal axis, no ST abnormalities. Previous EKG on file showed AFib with RVR. Difficult to see the III T-waves due to artifact. Lateral T-waves were not flattened previous Critical Care Time Critical Care Time Critical Care Time: Yes Attestation: The patient required my highest level preparedness to intervene emergently and I personally spent this critical care time directly and personally managing the patient. This critical care time included: Obtaining a history; Examining the patient; Pulse oximetry; Ordering and reviewing of studies; Arranging urgent treatment with development of a management plan; Evaluation of patients response to treatment; Frequent reassessment discussions with other providers. This critical care time was performed to assess and manage the high probability of imminent life-threatening deterioration that could result in multiorgan failure. It was exclusive of separate billable procedures and treating other patients and teaching time. Total Critical Care Time in Minutes: 35 Discharge Plan Discharge Clinical Impression: Cellulitis Qualifiers: Site of cellulitis: extremity Site of cellulitis of extremity: lower extremity Laterality: right Qualified Code(s): L03.115 - Cellulitis of right lower limb Sepsis Qualifiers: Sepsis type: sepsis due to unspecified organism Sepsis acute organ dysfunction status: with acute organ dysfunction Severe sepsis acute organ dysfunction type: acute renal failure Acute renal failure type: unspecified Severe sepsis shock status: without septic shock Qualified Code(s): A41.9 - Sepsis, unspecified organism Patient Disposition: Admitted As Observation Condition: Guarded
[2024-01-23] MEDS: 0.9 % SODIUM CHLORIDE 1000 ml 1,000 ML IV ×2 (18:55→19:35)
[2024-01-23 19:03] LABS: Basophils Percent Auto 0.1 % (0.0-3.0); Hematocrit 39.1 % (33.0-51.0); Hemoglobin* 12.9 gm/dL (12.0-16.0); Immature Granulocytes Pct Auto 0.6 %; Lymphocytes Percent Auto 3.7 % (20-44); Mean Corpuscular HGB Conc 33 gm/dL (32-36); Mean Corpuscular Hemoglobin 29 pg (26-34); Mean Corpuscular Volume 89 fL (80-100); Monocytes Percent Auto 3.9 % (0.0-11.0); Neutrophils Percent Auto 91.7 % (42.0-72.0); Platelet Count* 191 K/uL (140-440); RDW Coefficient of Variation % 13.5 % (11.5-15.5); Red Blood Count 4.39 m/uL (4.00-5.20); White Blood Count* 23.24 K/uL (4.50-11.00)
[2024-01-23 19:05] LABS: Lactate Sepsis w/Reflex* 2.8 mmol/L (0.5-1.9)
[2024-01-23 19:06] LABS: Slide Review Reflex Yes
[2024-01-23 19:21] LABS: Chloride* 101 mmol/L (96-114); Potassium* 5.1 mmol/L (3.6-5.1); Sodium* 129 mmol/L (135-149)
--- OUTSIDE RECORDS SUMMARY | 2024-01-23 19:23 | XMS_ITS | Clinical Summary ---
Author Organization [employer] [facility] [employer] Address [place], [place] [address] Care Team Providers Care Sonar Subsystem Equipment Operator Name Role Phone Marlon Valencia MD Unavailable [phone] Shae Hidalgo MD Unavailable [phone] Rob Beckford MD Primary Care Provider [phone] Allergies Active Allergy Reactions Criticality Noted Date Comments Gabapentin Anxiety Low 08/12/2022 Vancomycin Itching Medium 01/29/2021 Medications Medication Sig Dispensed Refills Start Date End Date Status egivdwf-pukw-brvyx-o reg-capryl 100 mg-150 mg- 50 mg-150 mg capIndications:Prima ry osteoarthritis of right knee Take 2 Each by mouth once daily. 0 11/28/2020 Active cyanocobalamin (Vitamin B-12) 1,000 mcg tabletIndications:B1 2 deficiency Take 1 Tablet (1,000 mcg) by mouth once daily. 90 Tablet 3 05/02/2021 Active durable medical equipment (DME)Indications:Bret ma of both lower legs due to peripheral venous insufficiency,Chroni c diastolic CHF (congestive heart failure) (HC) Pneumatic compression device. 2 Each 05/16/2021 Active cholecalciferol, Vitamin D3, (Vitamin D-3) 5,000 unit tab tabletIndications:Vi tamin D deficiency Take 1 Tablet (5,000 units) by mouth once daily. 90 Tablet 3 08/30/2021 Active blood-glucose meterIndications:Con trolled type 2 diabetes mellitus without complication, without long-term current use of insulin (HC) Dispense meter, test strips, lancets covered by pt ins. E11.9 NIDDM type II - Test 3 times/day, Reason: High A1C 1 Each 12/10/2022 Active acetaminophen SR (Tylenol 8 Hour) 650 mg Extended-Release tablet Take 650 mg by mouth every 8 hours if needed. Max acetaminophen dose: 4000mg in 24 hrs. Active hydroCHLOROthiazide (HCTZ) 25 mg tabletIndications:Es sential hypertension Take 1 Tablet (25 mg) by mouth once daily. 90 Tablet 3 02/21/2023 Active metoprolol succinate (TOPROL XL) 100 mg Sustained-Release tabletIndications:Es sential hypertension,Chronic diastolic CHF (congestive heart failure) (HC),Paroxysmal atrial fibrillation with rapid ventricular response (HC) One tablet daily with 50 mg tablet to total 150 mg 90 Tablet 3 02/21/2023 Active metoprolol succinate (TOPROL XL) 50 mg sustained-release tabletIndications:Es sential hypertension,Chronic diastolic CHF (congestive heart failure) (HC),Paroxysmal atrial fibrillation with rapid ventricular response (HC) One tablet daily with 100 mg tablet to total 150 mg 90 Tablet 3 02/21/2023 Active blood sugar diagnostic (Contour Next Test Strips) stripIndications:Con trolled type 2 diabetes mellitus with stage 3 chronic kidney disease, without long-term current use of insulin (HC) TEST 1 TIMES DAILY 100 Each 3 06/17/2023 Active rivaroxaban (Xarelto) 20 mg tabletIndications:PA F (paroxysmal atrial fibrillation) (HC) Take 1 Tablet (20 mg) by mouth once daily with evening meal. 90 Tablet 3 07/15/2023 Active lisinopriL (PRINIVIL; ZESTRIL) 20 mg tabletIndications:HT N (hypertension) Take 1 Tablet (20 mg) by mouth once daily. 90 Tablet 3 07/15/2023 Active atorvastatin (LIPITOR) 40 mg tabletIndications:Mi xed hyperlipidemia Take 1 Tablet (40 mg) by mouth at bedtime. 90 Tablet 3 08/14/2023 Active Hospital, Clinic, or Other Facility Administered Medication Ordered Dose Route Frequency Start Date End Date Status triamcinolone acetonide (KENALOG) injection 60 mgIndications:Primary osteoarthritis of right knee 60 mg IArtic ONE TIME 12/31/2023 12/31/2023 Ended Active Problems Problem Noted Date Diagnosed Date Primary osteoarthritis of right knee 12/31/2023 Primary osteoarthritis of left knee 12/31/2023 Screening for lung cancer 10/15/2023 Overview (10/15/2023): September 2023: Low-dose CT scan for lung cancer screening negative. Needs repeat in September 2024. 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 No medications for diabetes thus far. Symptomatic congestive heart failure 04/03/2021 Myocardial strain 04/03/2021 Mild mitral valve regurgitation 04/03/2021 Mild left ventricular hypertrophy 04/03/2021 Mild aortic valve stenosis 04/03/2021 Mild aortic valve regurgitation 04/03/2021 Edema of both lower legs due to peripheral venous insufficiency 04/03/2021 Anemia 04/03/2021 Chronic diastolic CHF (congestive heart failure) 05/03/2019 Atrial fibrillation with rapid ventricular respo nse 03/16/2019 Cardiomyopathy due to hypertension 03/16/2019 Hyperlipidemia 02/09/2019 Hypertension 01/28/2019 Overview (07/21/2023): June 2023: Dr. Cheney Increased Ilisinopril to 20 mg once daily Morbid obesity with BMI of 50.0-59.9, adult 06/2018 Family history of clotting disorder 01/28/2019 Overview (02/09/2019): MTHFR gene mutation with high homocysteine Resolved Problems Problem Noted Date Diagnosed Date Resolved Date Ulcer of varicose vein of left leg 08/21/2022 08/21/2022 Stage 4 chronic kidney disease 03/16/2019 09/26/2022 Primary osteoarthritis of both knees 01/28/2019 12/19/2020 Overview (12/19/2020): R worse than L Encounters Date Type Department Care Team Description 01/21/2024 12:58 PM CDT - 01/21/2024 11:59 PM CDT Hospital Encounter [facility] [place] [address] [place] [address] Jason Huff MD Finkel, Joann M, PT Primary osteoarthritis of right knee; Primary osteoarthritis of left knee; Lymphedema; Morbid obesity with BMI of 50.0-59.9, adult (HC) 01/21/2024 Travel 01/02/2024 Telephone [facility] [address] [facility] [address] [place] [address] Jason Huff MD Pain 12/31/2023 2:00 PM CDT Office Visit [facility] [address] [facility] [address] [place] [address] Jason Huff MD Knee Pain/problem (ORGAN INSTALLER bilateral knee pain Right > Left) 12/31/2023 Travel 12/29/2023 Travel 12/19/2023 11:20 AM CDT Office Visit [facility] [address] [place] [address] Lidia Mckay OD Eye Exam (Diabetic) 12/19/2023 Travel 12/17/2023 Telephone [facility] [address] [place] [address] Rob Beckford MD Questions (Orthopedic referral ) 12/12/2023 Telephone [facility] [address] [place] [address] Rob Beckford MD Questions 12/11/2023 10:45 AM CDT Office Visit [facility] [address] [place] [address] Rob Beckford MD Diabetes (Last Diabetic Check: 08/14/2023/Last Diabetic Eye Exam: ?/Last Diabetic Education: ?); Musculoskeletal Problem (Follow-up Chronic Bilateral Knee pain - would like injection today/RIGHT knee is worse today) 12/11/2023 Travel 12/09/2023 11:30 AM CDT Orders Only [facility] [address] [place] [address] Lab, [place] [facility] 12/09/2023 10:45 AM CDT Ancillary Procedure [facility] [address] [place] [address] 12/09/2023 Travel 12/01/2023 Telephone [facility] [address] [place] [address] Rob Beckford MD Lab from Last 3 Months Immunizations Name Administration Dates Next Due COVID-19 VACCINE SPIKEVAX (M ODERNA 50MCG/0.5ML) 12YO+ PFS 02/13/2023 COVID-19 vaccine (Pfizer-Bio NTech 30mcg/0.3mL) 12YO+ BIVALENT PF, MDV 02/01/2022 COVID-19 vaccine (Pfizer-Bio NTech 30mcg/0.3mL) 12YO+ CADE-SUCROSE PF, MDV 08/30/2021 COVID-19 vaccine (Pfizer-Bio NTech 30mcg/0.3mL) PF, MDV 03/09/2021 Influenza, Inactivated AIIV4 (Age 65+ Years) Preserv Free 02/13/2023,02/01/2022,05/02/2021 Pneumococcal Conj 20-valent (Prevnar 20) 023 Pneumococcal conj 13-Valent (Prevnar 13) 021 Td (Age >=7 Years) 03/08/2019 Family History Medical History Relation Name Comments Coronary artery disease Brother 1 Hyperlipidemia Brother 1 Coronary artery disease Brother 2 Hyperlipidemia Brother 2 Coronary artery disease Father Hypertension Mother Kidney disease Mother Diabetes Sister Relation Name Status Comments Brother 1 Brother 2 Alive Father Mother Sister Social History Tobacco Use Types Packs/Day Years Used Date Smoking Tobacco: Former Cigarettes 1 40 1 973 - 2012 Smokeless Tobacco: Never Tobacco Cessation:Counseling Given: Yes Comments:smoke for 40 years Alcohol Use Standard Drinks/Week Comments Not Currently 0 (1 standard drink = 0.6 oz pur e alcohol) PHQ-2 Answer Date Recorded PHQ-2 TOTAL SCORE 0 02/21/2023 Social Connections Answer Date Recorded Frequency of Communication with Friends and Fami ly 0 08/14/2023 Financial Resource Strain Answer Date R ecorded Difficulty of Paying Living Expenses 3 08/14/2023 Difficulty of Paying Living Expenses Not on file 08/14/2023 Food Insecurity Answer Date Recorded Worried About Running Out of Food in the Last Ye ar 1 08/14/2023 Transportation Needs Answer Date Record ed Lack of Transportation (Medical) 1 08/14/2023 Housing Stability Answer Date Recorded Unable to Pay for Housing in the Last Year 1 08/14/2023 Sex and Gender Information Value Date Recorded Sex Assigned at Not on file Gender Identity Not on file Sexual Orientation Not on file Obstetrics History Last Filed Vital Signs Vital Sign Reading Time Taken Comments Blood Pressure 121/66 12/11/2023 10:58 AM CDT Pulse 60 12/11/2023 10:58 AM CDT Temperature 36.8 ??C (98.3 ??F) 11/06/2022 9:05 AM CD T Respiratory Rate 18 05/30/2020 9:55 AM ASSOCIATE BROKER Oxygen Saturation 99% 12/11/2023 10:58 AM CDT Inhaled Oxygen Concentration - - Weight 142.4 kg (314 lb) 01/21/2024 1:00 PM CDT Height 167.6 cm (5' 6) 01/21/2024 1:00 PM CDT Body Mass Index 50.68 01/21/2024 1:00 PM CDT Plan of Treatment Upcoming Encounters Date Type Department Care Team (Late st Contact Info) Description 01/27/2024 2:15 PM CDT Appointment [facility] [place] [address] [address] Emma Solis, PT [address] [address] 02/02/2024 3:30 PM CDT Appointment [facility] [place] [address] [address] Emma Solis, PT [address] [address] 02/12/2024 2:15 PM CDT Appointment [facility] [place] [address] [facility] [address] [place] [address] [place] [address] [facility] [address] [place] [address] Health Maintenance Due Date Last Done Comments Tdap 01/04/1967 Zoster (shingles) series for age 50+ (1 of 2) 01/04/2006 COVID-19 vaccine series ( season) 2023 02/13/2023, 02/01/2022, 08/30/2021, Additional history exists Influenza for age 65+ 12/28/2023 02/13/2023 , 02/01/2022, 05/02/2021 Fecal testing non-DNA (FIT,FOBT,iFOBT) for age 45-75 02/06/2024 02/05/2023, 05/03/2021, 06/02/2020, Additional history exists Depression screening for age 12+ 02/22/2024 02/21/2023, 08/30/2021, 06/02/2020, Additional history exists Medicare Wellness for age 65+ 02/22/2024 02/21/2023, 08/30/2021 Mammogram for age 45-75 03/21/2024 03/21/2023, 05/08 BMI (ht and wt on same day) for age 18+ 07/14/2024 07/15/2023, 02/21/2023, 08/21/2022, Additional history exists Low Dose CT (for lung CA) ag e 50-80 10/09/2024 10/10/2023, 10/09/2022, 08/29/2021, Additional history exists Lipids for age 45-75 02/15/2028 02/14/2023, 03/04/2022, 08/28/2021, Additional history exists Tetanus booster 03/08/2029 03/08/2019 Hepatitis C screening for ag e 18-79 Completed 02/09/2019 DEXA/DXA scan for age 65+ Completed 05/08/2021 Pneumococcal series for age 65+ Completed 3, 11/28/2020 Procedures Procedure Name Priority Date/Time Associated Diagnosis Comments POTASSIUM Routine 12/11/2023 12:17 PM CDT Hyperkalemia BASIC METABOLIC PANEL Routine 12/09/2023 11:16 AM CDT Controlled type 2 diabetes mellitus with stage 3 chronic kidney disease, without long-term current use of insulin (HC) HEMOGLOBIN A1C MONITORING (POCT) Routine 12/09/2023 11:16 AM CDT Controlled type 2 diabetes mellitus with stage 3 chronic kidney disease, without long-term current use of insulin (HC) XR KNEE WB 2 VIEWS BILATERAL AND 1 VIEW BILATERAL Routine 12/09/2023 10:46 AM CDT Bilateral chronic knee pain CT CHEST SCREENING LOW DOSE WO CONTRAST Routine 10/10/2023 11:10 AM CDT Encounter for screening for lung cancer Former smoker XR MAMMO ANGELICA BILAT SCREEN Routine 03/21/2023 10:57 AM ASSOCIATE BROKER Visit for screening mammogram LIPID PANEL W REFLEX MEASURED LDL Routine 02/14/2023 10:59 AM CDT Hyperlipidemia, unspecified hyperlipidemia type OCCULT BLOOD IFOBT STOOL Routine 02/05/2023 2:11 PM CDT Screening for colorectal cancer XR DXA BONE DENSITY 2 SITES AXIAL AND 1 SITE PERIPHERAL Routine 05/08/2021 11:16 AM ASSOCIATE BROKER Postmenopausal ANTI HCV Routine 02/09/2019 12:25 PM CDT Need for hepatitis C screening test from Last 3 Months or Most Recently Relevant to Health Maintenance Results * POTASSIUM (12/11/2023 12:17 PM CDT) POTASSIUM 4.9 3.5 - 5.1 mmol/L 12/11/2023 10:41 PM CDT [facility] Blood BLOOD SPECIMEN / Unknown Venipuncture / Unknown 12/11/2023 12:17 PM CDT 12/11/2023 12:19 PM CDT Rob Beckford MD CHEMISTRY Performing Organization Address City/[facility]/ZIP Co de Phone Number [facility] [address] [place] [address], * (ABNORMAL) HEMOGLOBIN A1C MONITORING (POCT) (12/09/2023 11:16 AM CDT) HEMOGLOBIN A1C MONITORING (POCT) 7.0(H) <=6.4 % 12/09/2023 11:30 AM CDT [facility] Blood BLOOD SPECIMEN / Unknown Butterfly / Unknown 12/09/2023 11:16 AM CDT 12/09/2023 11:16 AM CDT Narrative [facility] - 12/09/2023 11:30 AM CDT ? (<=6.9%) ? Indicates good control ? (7.0% to 7.9%) ? Indicates fair control ? (>=8.0%) ? Indicates poor control ?? NOTE: ??These thresholds are guidelines and ?individual targets may vary. Falsely low levels may be seen with: Recent Transfusion, Recent Significant Blood Loss, Hemolytic Diseases, or Falsely elevated levels may be seen with: Untreated Anemias, Splenectomy ? Rob Beckford MD CHEMISTRY Performing Organization Address City/[facility]/ZIP Co de Phone Number [facility] [address] [place] [address], [place] [phone] * (ABNORMAL) BASIC METABOLIC PANEL (12/09/2023 11:16 AM CDT) SODIUM 137 136 - 145 mmol/L 12/09/2023 7:01 PM CDT [facility] POTASSIUM 5.7(H) 3.5 - 5.1 mmol/L 12/09/2023 7:01 PM CDT [facility] CHLORIDE 103 98 - 107 mmol/L 12/09/2023 7:01 PM T [facility] CO2,TOTAL 22 22 - 29 mmol/L 12/09/2023 7:01 PM T [facility] ANION GAP 12 5 - 18 12/09/2023 7:01 PM T [facility] GLUCOSE 131(H) 70 - 99 mg/dL 12/09/2023 7:01 PM T [facility] CALCIUM 9.1 8.8 - 10.2 mg/dL 12/09/2023 7:01 PM T [facility] BUN 33(H) 8 - 23 mg/dL 12/09/2023 7:01 PM T [facility] CREATININE 1.35(H) 0.50 - 0.90 mg/dL 12/09/2023 7:01 PM [facility] BUN/CREAT RATIO 24(H) 10 - 20 7:01 PM T [facility] eGFR 43(L) >90 mL/min/1.7 3m2 12/09/2023 7:01 PM T [facility] Comment:As of 2021, eG FR is calculated by the CKD-EPI creatinine equation without race adjustment. ??eGFR can be influenced by muscle mass, exercise, and diet. ??The reported eGFR is an estimation only and is only applicable if the renal function is stable. Blood BLOOD SPECIMEN / Unknown Butterfly / Unknown 12/09/2023 11:16 AM CDT 12/09/2023 11:16 AM CDT Rob Beckford MD [facility]STRY [facility] [address] [place] [address], [place] * XR KNEE WB 2 VIEWS BILATERAL AND 1 VIEW BILATERAL (12/09/2023 10:46 AM CDT) Anatomical Region Laterality Modality KNEES Computed Radiogr aphy 12/09/2023 3:27 PM CDT Narrative 12/09/2023 3:27 PM CDT For Patients: ??As a result of the Cures Act, medical imaging exams and procedure reports are released immediately into your electronic medical record. ??You may view this report before your referring provider. ??If you have questions, please contact your health care provider. Indication: Bilateral knee pain Technique: Bilateral knee AP, lateral and sunrise 6 views Comparison: None Findings: Patellofemoral narrowing and spurring in both knees. Bilateral distal quadriceps tendinosis with small joint effusions. Narrowing and spurring at the medial compartments with increased varus angulation. Spurring at the lateral compartments. Hypertrophic spurring is more prominent at the posterior right knee compared to the left knee. Loose bodies are present bilaterally. Impression: : Tricompartmental degenerative joint disease bilaterally, right greater than left. Dictated by Smith Gilman MD @ 12/09/2023 3:27:32 PM (Electronically Signed) Procedure Note Smith Gilman MD - 12/09/2023 For Patients: As a result of the Cures Act, medical imagingexams and procedure reports are released immediately into your electronicmedical record. You may view this report before your referring provider.If you have questions, please contact your health care provider. Indication: Bilateral knee pain Technique: Bilateral knee AP, lateral and sunrise 6 views Comparison: None Findings: Patellofemoral narrowing and spurring in both knees. Bilateral distalquadriceps tendinosis with small joint effusions. Narrowing and spurringat the medial compartments with increased varus angulation. Spurring atthe lateral compartments. Hypertrophic spurring is more prominent at theposterior right knee compared to the left knee. Loose bodies are presentbilaterally. Impression: : Tricompartmental degenerative joint disease bilaterally, right greaterthan left. Dictated by Smith Gilman MD @ 12/09/2023 3:27:32 PM (Electronically Signed) Rob Beckford MD GENERAL IMAGING * CT CHEST SCREENING LOW DOSE WO CONTRAST (10/10/2023 11:10 AM CDT) Anatomical Region Laterality Modality Computed Tomogra phy Impressions 10/13/2023 4:[address] chest 10/09/2022. FINDINGS: No pulmonary nodules, focal consolidation, pleural effusion, or pneumothorax. Minimal biapical scarring. The heart size is normal. No pericardial effusion. Coronary artery atherosclerotic calcifications. No mediastinal or hilar lymphadenopathy. Limited images of the upper abdomen are unremarkable. Exaggerated thoracic kyphosis. Multilevel thoracic spondylosis. Diffuse idiopathic skeletal hyperostosis. IMPRESSION: No lung nodules or masses. Lung rads category 1, negative. Continue annual screening with low-dose chest CT in 12 months. Please note that all CT scans at this facility use dose modulation, iterative reconstruction and/or weight-based dosing when appropriate to reduce radiation dose to as low as reasonably achievable. ?? Dictated by: Rayo Victoria MD @10/12/2023 10:38:29 AM Neuroradiologist Narrative 10/13/2023 4:30 PM CDT For Patients: As a result of the Cures Act, medical imaging exams and procedure reports are released immediately into your electronic medical record. ??You may view this report before your referring provider. ?? If you have questions, please contact your health care provider. CT CHEST SCREENING LOW-DOSE WITHOUT CONTRAST 10/10/2023 INDICATION: Lung cancer screening. TECHNIQUE: Noncontrast CT images of the chest. Rob Beckford MD CT * XR MAMMO ANGELICA BILAT SCREEN (03/21/2023 10:57 AM ASSOCIATE BROKER) Anatomical Region Laterality Modality BREASTS, Breast Left, Breast Right Bilateral Mammography Impressions 03/21/2023 4:49 PM ASSOCIATE BROKER ??There is no radiographic evidence for malignancy. ??Recommend annual mammograms. MAMMOGRAM ASSESSMENT: ??ACR 1 Negative PATIENTS: You will also receive a letter with your examination results in an easy to read format. ??If you have questions about your results, please contact your referring provider. Narrative 03/21/2023 4:49 PM ASSOCIATE BROKER For Patients: As a result of the 21st Century Cures Act, medical imaging exams and procedure reports are released immediately into your electronic medical record. You may view this report before your referring provider. If you have questions, please contact your health care provider. XR MAMMO ANGELICA BILAT SCREEN [[id number]] CLINICAL HISTORY: ??This is an asymptomatic 68 y.o. patient. INDICATION FOR EXAM: Mammogram Screening. TECHNIQUE: CC & MLO views were obtained. ??This study was evaluated with the assistance of Computer-Aided Detection. Breast Tomosynthesis was used in interpretation. COMPARISON FILM: Yes 05/08/21 [employer] ?? FINDINGS: ??The breasts have scattered areas of fibroglandular density. There are no dominant masses, suspicious micro calcifications or areas of architectural distortion. Rob Beckford MD MAMMO * (ABNORMAL) LIPID PANEL W REFLEX MEASURED LDL (02/14/2023 10:59 AM CDT) CHOLESTEROL,TOTAL 133 100 - 199 mg/dL 02/14/2023 5:04 PM CDT [facility] Comment: Cholesterol, Total Reference Ranges Desirable <200 mg/dL Borderline 200-239 mg/dL High >=240 mg/dL TRIGLYCERIDES 243(H) <150 mg/dL 02/14/2023 5:04 PM CDT [facility] HDL CHOLESTEROL 30(L) >40 mg/dL 5:04 PM CDT [facility] NON-HDL CHOLESTEROL 103 <145 mg/dl 02/14/2023 5:04 PM CDT [facility] CHOL/HDL RATIO 4.43 <4.50 02/14/2023 5:04 PM CDT [facility] LDL CHOLESTEROL 54 <=130 mg/dL 02/14/2023 5:04 PM CDT [facility] VLDL CHOLESTEROL 49(H) <=30 mg/dL 02/14/2023 5:04 PM CDT [facility] PROVIDER ORDERED STATUS RANDOM 02/14/2023 5:04 PM CDT [facility] Blood BLOOD SPECIMEN / Unknown Venipuncture / Unknown 02/14/2023 10:59 AM CDT 02/14/2023 11:02 AM CDT Rob Beckford MD CHEMISTRY [facility] [address] [place] [address], * OCCULT BLOOD IFOBT STOOL (02/05/2023 2:11 PM CDT) STOOL BLOOD ,IFOBT Negative Negative 02/07/2023 3:08 PM CDT [facility] Stool STOOL SPECIMEN / Unknown Non-Blood / Unknown 02/05/2023 2:11 PM CDT 02/07/2023 2:11 PM CDT Amy Carrasco MD LABORATORY Performing Organization Address [facility] Co de Phone Number [facility] [address] [place] [address], * XR DXA BONE DENSITY 2 SITES AXIAL AND 1 SITE PERIPHERAL (05/08/2021 11:16 AM ASSOCIATE BROKER) Anatomical Region Laterality Modality LUMBAR SPINE Other Impressions 05/09/2021 5:37 PM ASSOCIATE BROKER Normal bone density. RECOMMENDATIONS: The National Osteoporosis Foundation recommends pharmacologic treatment for patients with T-scores of -2.5 or less, patients with prior history of fragility fractures, or patients with 10-year probability of greater than 3% at hips or greater than 20% of suffering major osteoporotic fractures. Recommend continued optimization of calcium and vitamin D intake through dietary means and/or supplementation and regular exercise. Repeat scan recommended in 5-7 years. Chelsy Vicente PA-C Narrative 05/09/2021 5:37 PM ASSOCIATE BROKER For Patients: Results are automatically released to your [employer]) account once available, in compliance with federal regulations. This means that you may see your results before your provider has had a chance to review them. Please allow 2-3 business days for your provider to comment on the results. XR DXA Bone Mineral Density (BMD) EXAM LOCATION: [facility] [address] [facility] [address] PATIENT NAME: Chelo Torres DATE OF : 1955 EXAM DATE: 05/08/2021 REQUESTING PROVIDER: Anish Hutchinson MD GENDER AT : female HEIGHT: 5' 6 (01/18/2021) WEIGHT: ??315 lb (05/02/2021) MENOPAUSAL STATUS: Postmenopausal RACE/ETHNICITY: White RISK FACTORS: Height Loss (2 inches or more), Smoking (prior) and White Race CURRENT MEDICATION FOR BONE LOSS: NONE INDICATION: Post-Menopause and HEIGHT LOSS GREATER THAN 1 INCH, TOBACCO USE FOR 30 YEARS, RENAL DISEASE COMPARISON DATE(S): None DXA scans are compared to prior studies for a patient only when the two (or more) studies were performed on the same scanner. It is not possible to compare data generated on one scanner to data from another because there are not standards in DXA equipment. This applies even if the two scanners are made by the same medical device assembler. PROCEDURE: Dual-energy x-ray absorptiometry performed with routine technique. Reporting is completed in the form of a T-score. The T-score represents the standard deviation from peak bone mass based on young healthy adult. A Z-score is used for diagnosis in premenopausal women, and for men under the age of 50. FINDINGS: RESULT LUMBAR SPINE L1 - L4 ??(WITHOUT L2) BMD: 1.251 g/cm2 T-Score: + 0.5 Z-Score: + 0.9 Change from prior: ??None RESULTS FEMUR Left femoral neck BMD: 0.945 g/cm2 T-Score: - 0.7 Z-Score: + 0.0 Change from prior: ??None Right femoral neck BMD: 0.969 g/cm2 T-Score: - 0.5 Z-Score: + 0.2 Change from prior: ??None Left hip BMD: 0.889 g/cm2 T-Score: - 0.9 Z-Score: - 0.6 Change from prior: ??None Right hip BMD: 0.914 g/cm2 T-Score: - 0.7 Z-Score: - 0.4 Change from prior: ??None RESULT FOREARM Right Forearm distal radius BMD: 1.011 g/cm2 T-Score: + 1.5 Z-Score: + 2.9 Change from prior: ??None WHO criteria: Normal: T-score at or above -1 SD Osteopenia: T-score between -1.1 and -2.4 SD Osteoporosis: T-score at or below -2.5 SD Anish Hutchinson MD DEXA * ANTI HCV (02/09/2019 12:25 PM CDT) HEPATITIS C ANTIBODY Non-React marjorie Non-React marjorie 02/09/2019 8:25 PM CDT [facility] Comment:Antibodies to HCV no t detected; does not exclude the possibility of exposure to HCV. Blood BLOOD SPECIMEN / Unknown Venipuncture / Unknown 02/09/2019 12:25 PM CDT 02/09/2019 12:29 PM CDT Anish Hutchinson MD [facility] 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
[2024-01-23 19:24] LABS: Creatinine* 1.9 mg/dL (0.5-1.5); Est. Creatinine Clearance* 26.53; Estimated Glomerular Filt Rate 28 ml/min
[2024-01-23 19:25] LABS: Anion Gap 9 mEq/L (7-15); Blood Urea Nitrogen* 50 mg/dL (7-30); Calcium* 9.3 mg/dL (8.4-10.6); Carbon Dioxide* 19 mmol/L (20-32); Glucose* 214 mg/dL (60-115); Magnesium* 1.7 mg/dL (1.5-2.6)
[2024-01-23 19:37] LABS: Troponin I* 0.02 ng/mL (0.01-0.04)
[2024-01-23] MEDS: CLINDAMYCIN 600 MG/50 ML-D5W 600 MG/50 ML PIGGYBACK 100 MG IVPB (19:38)
[2024-01-23 19:46] LABS: PCR FLU A Negative PCR FLU A (Negative); PCR FLU B Negative PCR FLU B (Negative); SARS PCR* Negative SARS-CoV-2 (Negative)
--- NOTE | 2024-01-23 20:09 | P.IMHP_ITS ---
Hospitalist- H&P: HPI History of Present Illness Date Seen: 01/23/24 Chief complaint: weakness, Narrative: ADMISSION HISTORY AND PHYSICAL - HOSPITALIST Chief Complaint: weakness and right lower extremity progressive redness HPI: 69-year-old white female with a history of recurrent cellulitis, morbid obesity, diet controlled DM2, paroxysmal AFib on oral anticoagulation, chronic kidney disease, hypertension, hypothyroidism and HFpEF - presents to the emergency room after several hours of worsening right leg pain and redness. This is associated with a fever of 101 prior to presentation and increasing weakness. She was admitted to the hospitalist service in July 2022 for the same in addition to it NICKOLAS and UTI. She was treated with IV Ancef and discharged on oral Keflex. Just started physical therapy for her knee Had her last physical on 12/[address] Beckford ER COURSE: No imaging; labs, fluid bolus based on IBW and IV antibiotics. CODE STATUS: FULL CODE EMERGENCY CONTACT PLAN: Dorene Zacarias Rel To Pat Sister Cell I've updated the PFSH, medications and allergies in the Expanse tabs. INVESTIGATIONS: LABS/MICRO/ECG/IMAGING BP soft SBP as los as 81, up to 113, down to 92. on fluids. pulse 60's (on metoprolol) RR 16 - unlabored, normal sats no fever. White blood cell count is elevated at 23.24. This is 91.7% neutrophils. Her hemoglobin is 12.9 and platelet count is 191. Her sodium is 129 and it corrects to 132, given her glucose is 214. Her creatinine is 1.9, up from a baseline of 1.3; BUN elevated at 50. Bicarb is 19 -VBG (normal) procalcitonin markedly elevated at 23 and CRP 6.1 Troponin is normal resp panal is neg no urine sent as of yet blood culture sent from ED REVIEW OF SYSTEMS: 12-point ROS completed with patient and negative unless otherwise stated in HPI or below. PHYSICAL EXAM: CONSTITUTIONAL: Conversive, good historian. A/O. Knows setting and context. looks a bit disshelved VITAL SIGNS: see above.. HEENT: Normocephalic, atraumatic. PERRL, EOMI, conjunctivae pink, no scleral icterus. Ears and nose externally normal. Pharynx dry. NECK: No JVD. No carotid bruit, no thyromegaly, no adenopathy. CHEST: Clear to auscultation bilaterally HEART: S1 and S2 normal. holosystolic murmur noted; 2+ edema bilaterally MUSCULOSKELETAL: No gross joint deformity or swelling. NEURO: Cranial nerves intact. Grossly intact. No asymmetric findings. SKIN: right lower extremity - anterior schilling an area about 8x8cm deep red inflammation; streaking erythema almost to knee. tender to palpation. dorsum of foot spared. PSYCHIATRIC: Euthymic. ADMIT TO MEDSURG: FLOOR CARE DVT: chronic Xarelto for PAF GI: PO intake Time spent: Today I spent 75 minutes seeing the patient, discussing the patient with ER staff, reviewing Expanse and EPIC notes/diagnostics, discussing the care plan with our care time that includes social work, PT/OT, pharmacy, RT, longterm and documenting my impressions and plan in the medical record. [facility] Medical History (Updated 01/23/24 @ 21:36 by Emma Reich MD) Hypertension ?I10 - Essential (primary) hypertension (ICD-10) Family history of clotting disorder ?Z83.2 - Family history of diseases of the blood and blood-forming organs and certain disorders involving the immune mechanism (ICD-10) Infection with ESBL Klebsiella oxytoca ?A49.8 - Other bacterial infections of unspecified site (ICD-10) ?Z16.12 - Extended spectrum beta lactamase (ESBL) resistance (ICD-10) Postmenopausal vaginal bleeding ?N95.0 - Postmenopausal bleeding (ICD-10) 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) Bilateral lower extremity edema ?R60.0 - Localized edema (ICD-10) Controlled type 2 diabetes mellitus ?E11.9 - Type 2 diabetes mellitus without complications (ICD-10) Hypothyroidism ?E03.9 - Hypothyroidism, unspecified (ICD-10) Anemia ?D64.9 - Anemia, unspecified (ICD-10) Cellulitis of left lower extremity without foot ?L03.116 - Cellulitis of left lower limb (ICD-10) Acute appendicitis with appendiceal abscess ?K35.33 - Acute appendicitis with perforation, localized peritonitis, and gangrene, with abscess (ICD-10) Diastolic CHF with preserved left ventricular function, NYHA class 2 ?I50.30 - Unspecified diastolic (congestive) heart failure (ICD-10) Mild mitral regurgitation ?I34.0 - Nonrheumatic mitral (valve) insufficiency (ICD-10) Mild left ventricular hypertrophy ?I51.7 - Cardiomegaly (ICD-10) Mild aortic insufficiency ?I35.1 - Nonrheumatic aortic (valve) insufficiency (ICD-10) Hypertensive cardiomyopathy ?I11.9 - Hypertensive heart disease without heart failure (ICD-10) ?I43 - Cardiomyopathy in diseases classified elsewhere (ICD-10) Mild aortic stenosis ?I35.0 - Nonrheumatic aortic (valve) stenosis (ICD-10) Stage 3b chronic kidney disease ?N18.32 - Chronic kidney disease, stage 3b (ICD-10) Morbidly obese ?E66.01 - Morbid (severe) obesity due to excess calories (ICD-10) Paroxysmal atrial fibrillation with rapid ventricular response ?I48.0 - Paroxysmal atrial fibrillation (ICD-10) Hyperlipidemia ?E78.5 - Hyperlipidemia, unspecified (ICD-10) Surgical History S/P laparoscopic appendectomy (~06/2019) ?Z90.49 - Acquired absence of other specified parts of digestive tract (ICD- 10) Family History Brother Coronary artery disease High cholesterol Father Coronary artery disease Sister Diabetes Mother High blood pressure Social History Narrative: Smoked 40 pack-years, quit in 2012. Drinks 2-3 drinks per year. Denies recreational drug use. Highest level of school completed/degree received: some college, no degree Smoking Status: Former smoker Do you use any of these nicotine containing products: None Second hand tobacco smoke exposure: No How often do you have a drink containing alcohol: never How often do you have six or more drinks on one occasion: Never AUDIT-C Alcohol total score: 0 Non-prescribed substance use: denies use Caffeine: Yes service: No Meds Home Medications and Allergies Home Medications ?Medication ?Instructions ?Recorded ?Confirmed ?Type atorvastatin 40 mg tablet 40 mg PO HS 02/02/22 11/01/22 History hydrochlorothiazide 25 mg tablet 25 mg PO 02/02/22 11/01/22 History metoprolol succinate 100 mg 100 mg PO HS 02/02/22 11/01/22 History tablet,extended release 24 hr rivaroxaban 15 mg tablet (Xarelto) 15 mg PO HS 02/02/22 11/01/22 History cholecalciferol (vitamin D3) 125 5,000 unit PO HS 08/12/22 11/01/22 History mcg (5,000 unit) tablet (Vitamin D3) cyanocobalamin (vitamin B-12) 1,000 mcg PO DAILY 08/12/22 11/01/22 History 1,000 mcg tablet lisinopril 10 mg tablet 15 mg PO HS 08/12/22 11/01/22 History metoprolol succinate 50 mg 50 mg PO HS 08/12/22 11/01/22 History tablet,extended release 24 hr turmeric PO 08/12/22 History Allergies Allergy/AdvReac Type Severity Reaction Status Date / Time gabapentin AdvReac Mild Anxiety Verified 11/01/22 11:23 vancomycin AdvReac itch Verified 11/01/22 11:23 Exam Const: Vital Signs, click to edit/add: Vital Signs - 24 hr 01/23/24 18:33 01/23/24 18:42 01/23/24 18:43 Temperature 97.7 F Pulse Rate 78 78 Pulse Rate [Pulse Oximeter] 81 Respiratory Rate 14 Blood Pressure 89/48 L Blood Pressure [Le ft Forearm] 81/52 L Pulse Oximetry 97 99 98 [facility] 01/23/24 18:45 01/23/24 19:00 01/23/24 19:01 Temperature Pulse Rate 74 76 74 Pulse Rate [Pulse Oximeter] Respiratory Rate Blood Pressure 98/51 L Blood Pressure [Le ft Forearm] Pulse Oximetry 97 99 99 [facility] 01/23/24 19:15 01/23/24 19:31 01/23/24 19:36 Temperature Pulse Rate 73 70 Pulse Rate [Pulse Oximeter] Respiratory Rate Blood Pressure 113/50 L Blood Pressure [Le ft Forearm] Pulse Oximetry 100 96 [facility] - H&P: Result Labs Labs: Short CBC 01/23/24 Range/Units 18:54 WBC 23.24 H (4.50-11.00) K/uL Hgb 12.9 (12.0-16.0) gm/dL Hct 39.1 (33.0-51.0) % Plt Count 191 (140-440) K/uL BMP 01/23/24 18:54 Sodium 129 L Potassium 5.1 Chloride 101 Carbon Dioxide 19 L BUN 50 H Creatinine 1.9 H Glucose 214 H Calcium 9.3 Cardiac Enzymes 01/23/24 Range/Units 18:54 Troponin I 0.02 (0.01-0.04) ng/mL Assessment and Plan Assessment and plan (1) Cellulitis of right lower extremity: Problem comment: -w/severe sepsis (soft blood pressures; leukocytosis, elevated lactate) -clindamycin and IV hydration; general support -admitted for the same in 08/18; Ancef was effective. Status: Acute (2) Severe sepsis: Problem comment: with low MAP in the ED, marked leukocytosis, elevated lactate and obvious cellulitis - this meets the criteria for severe sepsis; inpatient admission for sepsis/cellulitis. -ED started IV clindamycin. she has an allergy to Vanc. Previous admission was amenable to IV Ancef. We can continue the clinda thru the first night and gauge the response in the morning. -repeat lactate needed this evening (improved) -consider lymphedema consult while admitted or outpatient Status: Acute (3) NICKOLAS (acute kidney injury): Problem comment: -1.3-1.5 baseline; 1.9 and intravascularly dry; will follow with hydration and labs Status: Acute (4) PAF (paroxysmal atrial fibrillation): Problem comment: -rate controlled with metoprolol; oral anticoagulation with a DOAC. -with soft pressures metoprolol is on hold - will watch rate and initiate rate control if needed. Status: Acute (5) Chronic anticoagulation: Problem comment: -Xarelto 15mg hs - will need to look at refills; last filled in 06/21 - is she compliant? She states no missed doses. Status: Acute (6) Controlled type 2 diabetes mellitus: Problem comment: - HgbA1C 7.0 in 12/19 outpatient visit. No meds. Diet controlled. - ISS, diabetic diet Status: Acute (7) Hypertension: Problem comment: -holding home meds Status: Acute (8) Stage 3b chronic kidney disease: Problem comment: - Baseline creatinine is approximately 1.2-1.5 Status: Acute (9) Hypothyroidism: Problem comment: -TSH pending Status: Acute (10) Morbidly obese: Problem comment: BMI of 51 Status: Acute (11) Hyperlipidemia: Problem comment: -continue statin Status: Acute
[2024-01-23 20:25] LABS: PCO2 VBG 34 mmHG (40-50); PO2 VBG < 30.1 mmHG (25-47); pH VBG 7.395 (7.32-7.43)
[2024-01-23 20:26] LABS: HCO3 VBG 21 mmol/L (21-28)
[2024-01-23 21:05] LABS: C Reactive Protein* 6.1 mg/dL (0.5-1.0)
[2024-01-23 21:09] LABS: Lactate* 1.7 mmol/L (0.5-1.9)
[2024-01-23] MEDS: RIVAROXABAN 10 MG TABLET 15 MG PO (22:25)
[2024-01-23] MEDS: ATORVASTATIN CALCIUM 40 MG TABLET PO (22:25)
[2024-01-23] MEDS: 0.9 % SODIUM CHLORIDE 1000 ml 1,000 ML 150 ML IV (22:26)
[2024-01-23 22:58] LABS: Slide Review Acceptable Review (Acceptable)
[2024-01-24] VITALS (13 sets, daily range): BP systolic 91–141; BP diastolic 43–74; PULSE 82–100; RESP 18–20; TEMP 36.3–38.1; O2SAT 96–98
[2024-01-24] MEDS: ONDANSETRON 2 MG/ML inj 4 MG IVP (03:29)
[2024-01-24] MEDS: CLINDAMYCIN 600 MG/50 ML-D5W 600 MG/50 ML PIGGYBACK 100 MG IVPB (03:36)
[2024-01-24] MEDS: ACETAMINOPHEN 325 MG TABLET PO ×2 (03:46→21:05)
[2024-01-24] MEDS: 0.9 % SODIUM CHLORIDE 1000 ml 1,000 ML 150 ML IV ×4 (05:30→21:06)
[2024-01-24] MEDS: 0.9 % SODIUM CHLORIDE 500 ML 500 ML IV (05:32)
--- NOTE | 2024-01-24 05:44 | PC.NURSE ---
Patient admitted to the unit at 2114 with cellulitis and sepsis. Soft BP at 0342 and 0417. Provider notified and 500 fluid bolus administered. BP re check 102/59. Tylenol administered for fever of 100.5 and 98.8 at recheck. Denies pain. Denies N/. Cellulitis outlined and remained within drawn markings. A1 w/cane. Patient refused insulin at HS. BG 157. Speech Language Pathology Assistant educated patient on risks vs. benefits but patient still refused.
[2024-01-24 07:26] LABS: Basophils Percent Auto 0.1 % (0.0-3.0); Eosinophils Percent Auto 0.1 % (0.0-7.0); Hemoglobin* 10.8 gm/dL (12.0-16.0); Immature Granulocytes Pct Auto 0.7 %; Lymphocytes Percent Auto 8.8 % (20-44); Mean Corpuscular HGB Conc 33 gm/dL (32-36); Mean Corpuscular Hemoglobin 29 pg (26-34); Mean Corpuscular Volume 89 fL (80-100); Monocytes Percent Auto 3.5 % (0.0-11.0); Neutrophils Percent Auto 86.8 % (42.0-72.0); Platelet Count* 164 K/uL (140-440); RDW Coefficient of Variation % 13.9 % (11.5-15.5); White Blood Count* 17.02 K/uL (4.50-11.00)
[2024-01-24 07:29] LABS: Slide Review Reflex No
--- NOTE | 2024-01-24 07:33 | PM.IMPN1 ---
Progress Note: A&P Assessment and plan (1) Cellulitis of right lower extremity: Problem details: -admitted for the same in 08/18; Ancef was effective. - 01/22: w/severe sepsis (soft blood pressures; leukocytosis, elevated lactate); clindamycin and IV hydration; general support - 01/23: BPs soft, but okay. Continue IVF hydration. No h/o MRSA. It has only been 12 hours since starting clindamycin; I do not expect improvement yet. Change antibiotic to ancef. Monitor with recheck of cellulitis tonight and recheck labs in am. If cellulitis worsening, consider switching to daptomycin. Status: Acute (2) Severe sepsis: Problem details: with low MAP in the ED, marked leukocytosis, elevated lactate and obvious cellulitis - this meets the criteria for severe sepsis; inpatient admission for sepsis/cellulitis. -ED started IV clindamycin. she has an allergy to Vanc. Previous admission was amenable to IV Ancef. We can continue the clinda thru the first night and gauge the response in the morning. -repeat lactate needed this evening (improved) -consider lymphedema consult while admitted or outpatient - 01/23 Lactate improved. WBC improving. Switching to ancef. Monitor. Status: Acute (3) NICKOLAS (acute kidney injury): Problem details: -1.3-1.5 baseline; 1.9 and intravascularly dry; will follow with hydration and labs - 01/23 Cr improving to 1.6. BUN improving, but remains elevated. Continue IVF hydration. Recheck labs in am. Status: Acute (4) Stage 3b chronic kidney disease: Problem details: - Baseline creatinine is approximately 1.2-1.5 Status: Chronic (5) Controlled type 2 diabetes mellitus: Problem details: - HgbA1C 7.0 in 12/19 outpatient visit. No meds. Diet controlled. - 01/23 Continue ISS, diabetic diet Status: Chronic (6) PAF (paroxysmal atrial fibrillation): Problem details: -rate controlled with metoprolol; oral anticoagulation with a DOAC. -with soft pressures metoprolol is on hold - will watch rate and initiate rate control if needed. - 01/23 BP still soft. HRs under 100. Continue to hold metoprolol. Status: Chronic (7) Chronic anticoagulation: Problem details: -Xarelto 15mg hs - will need to look at refills; last filled in 06/21 - is she compliant? She states no missed doses. Status: Chronic (8) Hypothyroidism: Problem details: -TSH pending Status: Chronic (9) Hypertension: Problem details: -holding home meds due to soft BPs. Status: Chronic (10) Morbidly obese: Problem details: BMI of 51 Status: Chronic (11) Hyperlipidemia: Problem details: -continue statin Status: Chronic Plan VTE prophylaxis with therapeutic Rivaroxaban for afib. Subjective Time Seen by Provider: 07:23 Date Seen: 01/24/24 Interval history: Ruma is hungry this morning. She notes her POC BG was taken already and she is waiting for her breakfast to arrive. She denies CP or SOB. She notes her leg is essentially unchanged from last night. Her friend manuelito a line around the redness yesterday morning. Chelo notes that she felt off and woozy with vancomycin and gabapentin last year during hospital treatment for a similar episode and does not want to try vancomycin again. I noted that is an unlikely reaction to vancomycin and suggested that she likely felt that way due to her illness or a different drug at the time. She remains unwilling to try vancomycin again at this time. Exam Narrative: Exam Narrative: General: No acute distress. Awake, alert, oriented. No pallor. No jaundice. Oropharynx: Clear. Mucous membranes moist. Cardiovascular: Regular rate and rhythm. No murmurs, gallops, or rubs. Respiratory: Clear to auscultation bilaterally. No wheezes or crackles. Abdomen: Bowel sounds present. Soft, nondistended, nontender. Extremities: There is a central area with a thick black line drawn around it. This is an oblong area in the center of her anterior lower leg about 8x10cm. This area is deeply red with a small point of necrosis at the very center. The line drawn and labeled yesterday when she came into the ER yesterday evening encompasses almost the entire area of her anterior lower leg. There is erethema slightly beyond this line this morning, with a peninsula-like extention central/superiorily of about 5 cm beyond yesterday's ER line. The dorsum of the foot and the knee are spared. The areas of involvement are edematous, warm, and tender to the touch. There are no open or weeping areas. No areas of fluctuance or blistering. Const: Vital Signs, click to edit/add: Vital Signs - 24 hr 01/23/24 18:33 01/23/24 18:42 01/23/24 18:43 Temperature 97.7 F Pulse Rate 78 78 Pulse Rate [Pulse Oximeter] 81 Respiratory Rate 14 Blood Pressure 89/48 L Blood Pressure [Le ft Forearm] 81/52 L Blood Pressure [Ri ght Forearm] Pulse Oximetry 97 99 98 Oxygen Delivery Me thod Room Air 01/23/24 18:45 01/23/24 19:00 01/23/24 19:01 Temperature Pulse Rate 74 76 74 Pulse Rate [Pulse Oximeter] Respiratory Rate Blood Pressure 98/51 L Blood Pressure [Le ft Forearm] Blood Pressure [Ri ght Forearm] Pulse Oximetry 97 99 99 Oxygen Delivery Me thod 01/23/24 19:15 01/23/24 19:31 01/23/24 19:36 Temperature Pulse Rate 73 70 Pulse Rate [Pulse Oximeter] Respiratory Rate Blood Pressure 113/50 L Blood Pressure [Le ft Forearm] Blood Pressure [Ri ght Forearm] Pulse Oximetry 100 96 Oxygen Delivery Me thod 01/23/24 19:45 01/23/24 20:00 01/23/24 20:02 Temperature 97.8 F Pulse Rate 73 69 66 Pulse Rate [Pulse Oximeter] Respiratory Rate 16 Blood Pressure 92/55 L Blood Pressure [Le ft Forearm] Blood Pressure [Ri ght Forearm] Pulse Oximetry 99 100 98 Oxygen Delivery Me thod 01/23/24 20:15 01/23/24 20:18 01/23/24 22:45 Temperature 98.2 F Pulse Rate 66 67 Pulse Rate [Pulse Oximeter] 80 Respiratory Rate 20 Blood Pressure 101/33 L Blood Pressure [Le ft Forearm] Blood Pressure [Ri ght Forearm] 118/45 L Pulse Oximetry 99 97 97 Oxygen Delivery Me thod Room Air 01/23/24 23:00 01/23/24 23:03 01/24/24 02:02 Temperature 98.1 F Pulse Rate Pulse Rate [Pulse Oximeter] 80 Respiratory Rate 20 20 20 Blood Pressure Blood Pressure [Le ft Forearm] Blood Pressure [Ri ght Forearm] 105/66 Pulse Oximetry 98 98 98 [facility] Room Air Room Air 01/24/24 03:42 01/24/24 03:46 01/24/24 04:17 Temperature 100.5 F H 100.5 F H Pulse Rate Pulse Rate [Pulse Oximeter] 88 Respiratory Rate 20 Blood Pressure Blood Pressure [Le ft Forearm] Blood Pressure [Ri ght Forearm] 102/43 L 91/44 L Pulse Oximetry 97 Oxygen Delivery Me thod Room Air 01/24/24 05:10 01/24/24 05:29 01/24/24 05:31 Temperature 98.8 F 98.8 F Pulse Rate Pulse Rate [Pulse Oximeter] Respiratory Rate Blood Pressure Blood Pressure [Le ft Forearm] Blood Pressure [Ri ght Forearm] 100/53 L 102/59 L Pulse Oximetry Oxygen Delivery Me thod Labs Labs: Laboratory Results - last 24 hr 01/23/24 01/23/24 01/23/24 18:54 19:02 20:17 WBC 23.24 H RBC 4.39 Hgb 12.9 Hct 39.1 MCV 89 MCH 29 MCHC 33 RDW Coeff of Chin 13.5 Plt Count 191 Neut % (Auto) 91.7 H Lymph % (Auto) 3.7 L Burnett % (Auto) 3.9 Eos % (Auto) 0.0 Baso % (Auto) 0.1 Neut # (Auto) 21.30 H Lymph # (Auto) 0.90 Burnett # (Auto) 0.90 Eos # (Auto) 0.00 Baso # (Auto) 0.00 Abs Immat Gran (auto) 0.10 Imm/Tot Granulo (auto) 0.6 Diff Slide Review Acceptable Review VBG pH 7.395 VBG pCO2 34 L VBG pO2 < 30.1 VBG HCO3 21 Sodium 129 L Potassium 5.1 Chloride 101 Carbon Dioxide 19 L Anion Gap 9 BUN 50 H Creatinine 1.9 H Estimated Creat Clear 26.53 Estimated GFR 28 Glucose 214 H Lactate 2.8 H Calcium 9.3 Magnesium 1.7 Troponin I 0.02 C-Reactive Protein 6.1 H Procalcitonin 23.30 H SARS-CoV-2 (PCR) Negative SARS-CoV-2 Influenza Type A (PCR) Negative PCR FLU A Influenza Type B (PCR) Negative PCR FLU B Lab Acknowledgement Test Added 01/23/24 01/24/24 21:05 06:58 WBC 17.02 H RBC 3.70 L Hgb 10.8 L Hct 33.0 MCV 89 MCH 29 MCHC 33 RDW Coeff of Chin 13.9 Plt Count 164 Neut % (Auto) 86.8 H Lymph % (Auto) 8.8 L Burnett % (Auto) 3.5 Eos % (Auto) 0.1 Baso % (Auto) 0.1 Neut # (Auto) 14.80 H Lymph # (Auto) 1.50 Burnett # (Auto) 0.60 Eos # (Auto) 0.00 Baso # (Auto) 0.00 Abs Immat Gran (auto) 0.10 Imm/Tot Granulo (auto) 0.7 Diff Slide Review VBG pH VBG pCO2 VBG pO2 VBG HCO3 Sodium Potassium Chloride Carbon Dioxide Anion Gap BUN Creatinine Estimated Creat Clear Estimated GFR Glucose Lactate 1.7 Calcium Magnesium Troponin I C-Reactive Protein Procalcitonin SARS-CoV-2 (PCR) Influenza Type A (PCR) Influenza Type B (PCR) Lab Acknowledgement
[2024-01-24 07:40] LABS: Hemoglobin A1C* 7.1 % (0-5.6)
[2024-01-24 07:41] LABS: Albumin* 2.9 g/dL (3.3-5.0); Chloride* 107 mmol/L (96-114)
[2024-01-24 07:42] LABS: Potassium* 4.3 mmol/L (3.6-5.1); Sodium* 131 mmol/L (135-149)
[2024-01-24 07:44] LABS: Alkaline Phosphatase* 66 U/L (40-150); Anion Gap 6 mEq/L (7-15); Aspartate Amino Transferase* 28 U/L (12-35); Bilirubin Total* 1.6 mg/dL (0.1-1.5); Carbon Dioxide* 18 mmol/L (20-32); Creatinine* 1.6 mg/dL (0.5-1.5); Estimated Glomerular Filt Rate 35 ml/min; Total Protein* 5.6 g/dL (6.0-8.3)
[2024-01-24 07:45] LABS: Alanine Aminotransferase* 12 U/L (4-35); Blood Urea Nitrogen* 43 mg/dL (7-30); Calcium* 8.1 mg/dL (8.4-10.6); Glucose* 115 mg/dL (60-115)
[2024-01-24 08:35] LABS: C Reactive Protein* 17.8 mg/dL (0.5-1.0)
[2024-01-24] MEDS: CEFAZOLIN 1 GM in 0.9 % SODIUM CHLORIDE Mini-bag 100 ML IVPB ×2 (08:54→17:22)
[2024-01-24] MEDS: CYANOCOBALAMIN (VITAMIN B-12) 500 MCG TABLET 1000 MCG PO (08:54)
[2024-01-24] MEDS: ATORVASTATIN CALCIUM 40 MG TABLET PO (21:05)
[2024-01-24] MEDS: RIVAROXABAN 10 MG TABLET 15 MG PO (21:05)
[2024-01-25] MEDS: CEFAZOLIN 1 GM in 0.9 % SODIUM CHLORIDE Mini-bag 100 ML IVPB ×3 (01:03→17:48)
[2024-01-25 03:00] VITALS: BP 125/63; PULSE 74; RESP 18; TEMP 36.1; O2SAT 97
--- NOTE | 2024-01-25 05:50 | PC.NURSE ---
End of shift [id number]: Pleasant and cooperative with cares. Pain to RLE and low back well managed with PRN tylenol, repositioning and ice PRN. RLE redness remains contained within outlines, area continues to be red, warm to the touch and edematous. Denies any shortness of breath or chest pain. Appetite good, denies any nausea or vomiting. Requires encouragement for fluid intake. Transfers with minimal assistance to get legs in and out of bed, ambulates with SBA with cane.
[2024-01-25 07:00] VITALS: BP 125/57; PULSE 77; RESP 18; TEMP 36.8; O2SAT 99
[2024-01-25 08:05] LABS: Basophils Percent Auto 0.2 % (0.0-3.0); Eosinophils Percent Auto 1.3 % (0.0-7.0); Hematocrit 34.6 % (33.0-51.0); Hemoglobin* 11.2 gm/dL (12.0-16.0); Immature Granulocytes Pct Auto 0.4 %; Lymphocytes Percent Auto 13.7 % (20-44); Mean Corpuscular HGB Conc 32 gm/dL (32-36); Mean Corpuscular Hemoglobin 30 pg (26-34); Mean Corpuscular Volume 91 fL (80-100); Monocytes Percent Auto 5.1 % (0.0-11.0); Neutrophils Percent Auto 79.3 % (42.0-72.0); Platelet Count* 165 K/uL (140-440); RDW Coefficient of Variation % 14.4 % (11.5-15.5); Red Blood Count 3.79 m/uL (4.00-5.20); White Blood Count* 13.41 K/uL (4.50-11.00)
[2024-01-25 08:08] LABS: Slide Review Reflex No
[2024-01-25 08:22] LABS: Chloride* 110 mmol/L (96-114); Potassium* 4.1 mmol/L (3.6-5.1); Sodium* 136 mmol/L (135-149)
[2024-01-25 08:25] LABS: Anion Gap 7 mEq/L (7-15); Blood Urea Nitrogen* 32 mg/dL (7-30); Carbon Dioxide* 19 mmol/L (20-32); Creatinine* 1.3 mg/dL (0.5-1.5); Est. Creatinine Clearance* 38.77; Estimated Glomerular Filt Rate 45 ml/min
[2024-01-25 08:26] LABS: Calcium* 8.4 mg/dL (8.4-10.6); Glucose* 109 mg/dL (60-115)
[2024-01-25 08:44] LABS: C Reactive Protein* 18.3 mg/dL (0.5-1.0)
[2024-01-25] MEDS: CYANOCOBALAMIN (VITAMIN B-12) 500 MCG TABLET 1000 MCG PO (09:28)
[2024-01-25] MEDS: 0.9 % SODIUM CHLORIDE 1000 ml 1,000 ML 150 ML IV (09:30)
--- NOTE | 2024-01-25 10:02 | P.IMPN_ITS ---
Progress Note: A&P Assessment and plan (1) Cellulitis of right lower extremity: Problem details: -admitted for the same in 08/18; Ancef was effective. - 01/22: w/severe sepsis (soft blood pressures; leukocytosis, elevated lactate); clindamycin and IV hydration; general support - 01/23: BPs soft, but okay. Continue IVF hydration. No h/o MRSA. It has only been 12 hours since starting clindamycin; I do not expect improvement yet. Change antibiotic to ancef. Monitor with recheck of cellulitis tonight and recheck labs in am. If cellulitis worsening, consider switching to daptomycin. - 01/24: improving. Continue Ancef. Elevate extremity. Status: Acute (2) Severe sepsis: Problem details: with low MAP in the ED, marked leukocytosis, elevated lactate and obvious cellulitis - this meets the criteria for severe sepsis; inpatient admission for sepsis/cellulitis. -ED started IV clindamycin. she has an allergy to Vanc. Previous admission was amenable to IV Ancef. We can continue the clinda thru the first night and gauge the response in the morning. -repeat lactate needed this evening (improved) -consider lymphedema consult while admitted or outpatient - 01/23 Lactate improved. WBC improving. Switching to ancef. Monitor. - 01/24 resolved Status: Resolved (3) NICKOLAS (acute kidney injury): Problem details: -1.3-1.5 baseline; 1.9 and intravascularly dry; will follow with hydration and labs - 01/23 Cr improving to 1.6. BUN improving, but remains elevated. Continue IVF hydration. Recheck labs in am. - 01/24 Cr now 1.3. Stop IVF. Status: Resolved (4) Stage 3b chronic kidney disease: Problem details: - Baseline creatinine is approximately 1.2-1.5 Status: Chronic (5) Controlled type 2 diabetes mellitus: Problem details: - HgbA1C 7.0 in 12/19 outpatient visit. No meds. Diet controlled. - 01/23 Continue ISS, diabetic diet Status: Chronic (6) PAF (paroxysmal atrial fibrillation): Problem details: -rate controlled with metoprolol; oral anticoagulation with a DOAC. -with soft pressures metoprolol is on hold - will watch rate and initiate rate control if needed. - 01/23 BP still soft. HRs under 100. Continue to hold metoprolol. - 01/24 BP improving. Restart metoprolol Status: Chronic (7) Chronic anticoagulation: Problem details: -Xarelto 20mg/day Status: Chronic (8) Hypothyroidism: Problem details: -TSH wnl. No change to regimen Status: Chronic (9) Hypertension: Problem details: - BPs improving. Continue to hold HCTZ and lisinopril. Restart metoprolol. Status: Chronic (10) Morbidly obese: Problem details: BMI of 51 Status: Chronic (11) Hyperlipidemia: Problem details: -continue statin Status: Chronic Plan VTE prophylaxis with therapeutic Rivaroxaban for afib. Subjective Time Seen by Provider: :54 Date Seen: 01/25/24 Interval history: Chelo states she does not note any improvement yet, but says it usually takes 3 days to start to feel better. She has not been elevating her leg because she (doesn't) like pillows. She notes these leg infections have happened every December for the past few years. She thinks the only thing that is different about this time of year is that she goes to the [employer] festivities. Exam Narrative: Exam Narrative: General: No acute distress. Awake, alert, oriented. Oropharynx: Clear. Mucous membranes moist. Cardiovascular: Regular rate and rhythm. Respiratory: Clear to auscultation bilaterally. No wheezes or crackles. Extremities: Erythema is improving and receding. It is now at the line drawn on 01/22 and even within that line it is less red. No open areas. Const: Vital Signs, click to edit/add: Vital Signs - 24 hr 01/24/24 11:00 01/24/24 15:00 01/24/24 15:00 Temperature 97.8 F 98.0 F Pulse Rate [Pulse Oximeter] 87 100 100 Respiratory Rate 18 18 18 Blood Pressure [Ri ght Forearm] 123/59 L 141/63 H Pulse Oximetry 98 96 Oxygen Delivery Me thod Room Air Room Air 01/24/24 19:00 01/24/24 23:00 01/24/24 23:00 Temperature 98.5 F 97.3 F L Pulse Rate [Pulse Oximeter] 97 97 86 Respiratory Rate 18 18 20 Blood Pressure [Ri ght Forearm] 109/74 110/57 L Pulse Oximetry 98 96 Oxygen Delivery Me thod Room Air Room Air 01/25/24 03:00 01/25/24 07:00 01/25/24 07:00 Temperature 97.0 F L 98.3 F Pulse Rate [Pulse Oximeter] 74 77 77 Respiratory Rate 18 18 18 Blood Pressure [Ri ght Forearm] 125/63 125/57 L Pulse Oximetry 97 99 Oxygen Delivery Me thod Room Air Room Air Labs Labs: Laboratory Results - last 24 hr 01/25/24 07:50 WBC 13.41 H RBC 3.79 L Hgb 11.2 L Hct 34.6 MCV 91 MCH 30 MCHC 32 RDW Coeff of Chin 14.4 Plt Count 165 Neut % (Auto) 79.3 H Lymph % (Auto) 13.7 L [place] % (Auto) 5.1 Eos % (Auto) 1.3 Baso % (Auto) 0.2 Neut # (Auto) 10.60 H Lymph # (Auto) 1.80 [place] # (Auto) 0.70 Eos # (Auto) 0.20 Baso # (Auto) 0.00 Abs Immat Gran (auto) 0.10 Imm/Tot Granulo (auto) 0.4 Sodium 136 Potassium 4.1 Chloride 110 Carbon Dioxide 19 L Anion Gap 7 BUN 32 H Creatinine 1.3 Estimated Creat Clear 38.77 Estimated GFR 45 Glucose 109 Calcium 8.4 C-Reactive Protein 18.3 H
[2024-01-25 11:00] VITALS: BP 140/66; PULSE 89; RESP 18; TEMP 36.8; O2SAT 99
[2024-01-25 15:00] VITALS: BP 131/73; PULSE 84; PULSE 91; RESP 18; TEMP 36.8; O2SAT 96
[2024-01-25] MEDS: ACETAMINOPHEN 325 MG TABLET PO (15:55)
[2024-01-25 19:00] VITALS: BP 149/66; PULSE 80; RESP 18; TEMP 36.2; O2SAT 95
[2024-01-25] MEDS: ATORVASTATIN CALCIUM 40 MG TABLET PO (20:48)
[2024-01-25] MEDS: METOPROLOL SUCCINATE (XL) 50 MG TAB 150 MG PO (20:48)
[2024-01-25] MEDS: SODIUM CHLORIDE 0.9 % (FLUSH) 10 ML SYRINGE 5 ML IVF (20:50)
[2024-01-25 23:00] VITALS: BP 148/60; PULSE 68; PULSE 80; RESP 18; RESP 20; TEMP 35.9; O2SAT 96
[2024-01-26] MEDS: CEFAZOLIN 1 GM in 0.9 % SODIUM CHLORIDE Mini-bag 100 ML IVPB ×2 (00:45→09:47)
[2024-01-26] MEDS: SODIUM CHLORIDE 0.9 % (FLUSH) 10 ML SYRINGE 5 ML IVF ×2 (00:46→09:47)
[2024-01-26 03:00] VITALS: BP 152/63; PULSE 71; RESP 18; TEMP 35.9; O2SAT 97
--- NOTE | 2024-01-26 05:42 | PC.NURSE ---
End of shift [id number]: Pleasant and cooperative with cares. Denies any pain or shortness of breath. 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 RLE continues to be edematous and warm to the touch. Ambulates independently with cane, min assist to independent with transfers, patient required assistance with moving lower extremities during the night due to feeling tired. Continued encouragement with oral fluid intake, patient self reports that I know I don't drink as much as I should. Denies any nausea or vomiting.
--- NOTE | 2024-01-26 07:59 | P.DS_ITS ---
DS: Providers Provider Time Seen by Provider: 07:36 Date Seen: 01/26/24 Date of admission: 01/23/24 21:23 Primary care physician: Not a Local Provider Admitting Clinician: Maddy Puentes MD Consults: 01/23/24 21:23 Consult to Occupational Therapy [CONS] Routine Comment: Reason(s) for OT Consult:: Evaluate and Treat Any Restrictions?:: No Restrictions Consult to Physical Therapy [CONS] Routine Comment: Reason(s) for PT Consult:: Evaluate and Treat Any Restrictions?:: No Restrictions Consult to Developmental Mathematics Professor [CONS] Routine Comment: Reason for Consult:: Social Service Consult Attending Physician on discharge: Debbie De Los Santos MD Date of Discharge: 01/26/24 DS: Diagnosis Discharge Diagnosis (1) Cellulitis of right lower extremity: Status: Acute Problem details: -admitted for the same in 08/18; Ancef was effective. - 01/22: w/severe sepsis (soft blood pressures; leukocytosis, elevated lactate); clindamycin and IV hydration; general support - 01/23: BPs soft, but okay. Continue IVF hydration. No h/o MRSA. It has only been 12 hours since starting clindamycin; I do not expect improvement yet. Change antibiotic to ancef. Monitor with recheck of cellulitis tonight and recheck labs in am. If cellulitis worsening, consider switching to daptomycin. - 01/24: improving. Continue Ancef. Elevate extremity. - 01/25 Appreciable improvement. Change to oral cephalexin. Discharge home. F/u with PCP. (2) Severe sepsis: Status: Resolved Problem details: with low MAP in the ED, marked leukocytosis, elevated lactate and obvious cellulitis - this meets the criteria for severe sepsis; inpatient admission for sepsis/cellulitis. -ED started IV clindamycin. she has an allergy to Vanc. Previous admission was amenable to IV Ancef. We can continue the clinda thru the first night and gauge the response in the morning. -repeat lactate needed this evening (improved) -consider lymphedema consult while admitted or outpatient - 01/23 Lactate improved. WBC improving. Switching to ancef. Monitor. - 01/24 resolved (3) NICKOLAS (acute kidney injury): Status: Resolved Problem details: -1.3-1.5 baseline; 1.9 and intravascularly dry; will follow with hydration and labs - 01/23 Cr improving to 1.6. BUN improving, but remains elevated. Continue IVF hydration. Recheck labs in am. - 01/24 Cr now 1.3. Resolved. Stop IVF. (4) Stage 3b chronic kidney disease: Status: Chronic Problem details: - Baseline creatinine is approximately 1.2-1.5 (5) PAF (paroxysmal atrial fibrillation): Status: Chronic Problem details: -rate controlled with metoprolol; oral anticoagulation with a DOAC. -with soft pressures metoprolol is on hold - will watch rate and initiate rate control if needed. - 01/23 BP still soft. HRs under 100. Continue to hold metoprolol. - 01/24 BP improving. Restart metoprolol (6) Controlled type 2 diabetes mellitus: Status: Chronic Problem details: - HgbA1C 7.0 in 12/19 outpatient visit. No meds. Diet controlled. - 01/23 Continue ISS, diabetic diet - 01/25 BG mostly 90-130s with the exception of last evening (354). (7) Chronic anticoagulation: Status: Chronic Problem details: -Xarelto 20mg/day (8) Hypertension: Status: Chronic Problem details: - BPs elevated now, Cr back to baseline yesterday. Continue metoprolol. Restart HCTZ and lisinopril. (9) Hypothyroidism: Status: Chronic Problem details: -TSH wnl. No change to regimen (10) Hyperlipidemia: Status: Chronic Problem details: -continue statin (11) Morbidly obese: Status: Chronic Problem details: BMI of 51 DS: Summary Hospital Course Hospital Course: Per H&P: 69-year-old white female with a history of recurrent cellulitis, morbid obesity, diet controlled DM2, paroxysmal AFib on oral anticoagulation, chronic kidney disease, hypertension, hypothyroidism and HFpEF - presents to the emergency room after several hours of worsening right leg pain and redness. This is associated with a fever of 101 prior to presentation and increasing weakness. She was admitted to the hospitalist service in July 2022 for the same in addition to it NICKOLAS and UTI. She was treated with IV Ancef and discharged on oral Keflex. Just started physical therapy for her knee Had her last physical on 12/[address] Beckford ER COURSE: No imaging; labs, fluid bolus based on IBW and IV antibiotics. Ruma was admitted on Clindamycin. Changed to ancef after 12 hours. Patient not compliant with elevating LE. Continued to make appreciable improvement of cellulitis over the next two days. WBC improving. Afebrile. Discharged home today in improved condition on oral antibiotic. Renal function has returned to baseline and her usual home antihypertensives have been restarted. I would like her to follow-up with her primary care provider in 5-7 days to determine if she needs longer course of antibiotic and to check a BMP since I restarted her diuretics. When I told patient that medically she is ready to go today, she said that she would like to stay because she she feels like she needs the help. Nursing notes have been reporting that she is independent in the room and I spoke with her nurses this morning who agreed that she is completely independent. Chelo tells me that her house is not ready for her to go home. It is noted that she has multiple family members and friends who live in the area and I have asked her to ask for help from these individuals if she feels that she needs it. Time Spent with Patient Time attestation: Total time spent providing and/or coordinating discharge services: Exam Narrative: Exam Narrative: General: No acute distress. Sleeping, aroused easily, oriented. Oropharynx: Clear. Mucous membranes moist. Cardiovascular: Regular rate and rhythm. Respiratory: Clear to auscultation bilaterally. No wheezes or crackles. Extremities: Erythema continues to improve and recede. There are large areas of clearing of erythema now and overall erythema and tenderness are much reduced. Const: Vital Signs, click to edit/add: Vital Signs - 24 hr 01/25/24 11:00 01/25/24 15:00 01/25/24 15:00 Temperature 98.3 F 98.3 F Pulse Rate [Pulse Oximeter] 89 91 84 Respiratory Rate 18 18 18 Blood Pressure [Ri ght Forearm] 140/66 H 131/73 Pulse Oximetry 99 96 Oxygen Delivery Me thod Room Air Room Air 01/25/24 19:00 01/25/24 23:00 01/25/24 23:00 Temperature 97.2 F L 96.7 F L Pulse Rate [Pulse Oximeter] 80 80 68 Respiratory Rate 18 18 20 Blood Pressure [Ri ght Forearm] 149/66 H 148/60 H Pulse Oximetry 95 96 Oxygen Delivery Me thod Room Air Room Air 01/26/24 03:00 Temperature 96.7 F L Pulse Rate [Pulse Oximeter] 71 Respiratory Rate 18 Blood Pressure [Ri ght Forearm] 152/63 H Pulse Oximetry 97 Oxygen Delivery Me thod Room Air DS: Data Data Completed and Pending Labs on day of discharge: Labs from last 24 hours 01/25/24 07:50 WBC 13.41 H RBC 3.79 L Hgb 11.2 L Hct 34.6 MCV 91 MCH 30 MCHC 32 RDW Coeff of Chin 14.4 Plt Count 165 Neut % (Auto) 79.3 H Lymph % (Auto) 13.7 L [place] % (Auto) 5.1 Eos % (Auto) 1.3 Baso % (Auto) 0.2 Neut # (Auto) 10.60 H Lymph # (Auto) 1.80 [place] # (Auto) 0.70 Eos # (Auto) 0.20 Baso # (Auto) 0.00 Abs Immat Gran (auto) 0.10 Imm/Tot Granulo (auto) 0.4 Sodium 136 Potassium 4.1 Chloride 110 Carbon Dioxide 19 L Anion Gap 7 BUN 32 H Creatinine 1.3 Estimated Creat Clear 38.77 Estimated GFR 45 Glucose 109 Calcium 8.4 C-Reactive Protein 18.3 H Preliminary micro results at discharge 01/23/24 18:54 Blood Culture - Preliminary Blood NO GROWTH AFTER 48 HOURS 01/23/2024 EKG: Normal sinus rhythm, 60 beats per minute, nonspecific T-wave abnormality. Discharge Plan Discharge Disposition: Home, Self-Care Date of Admission: 01/23/24 21:23 Attending Provider on Discharge: Debbie De Los Santos Primary Care Provider: Provider,Not a Local Condition: Guarded Anticipated Discharge Date/Time: 01/26/24 09:00 Discharge Medications: New cephalexin 500 mg capsule 500 mg PO QID 7 Days Qty: 28 0RF Probiotic 3 billion cell capsule 3,000 mmu cells PO DAILY Qty: 30 0RF Rx Instructions: administer with a meal Continued atorvastatin 40 mg tablet 40 mg PO HS hydrochlorothiazide 25 mg tablet 25 mg PO HS cyanocobalamin (vitamin B-12) 1,000 mcg tablet 1,000 mcg PO DAILY metoprolol succinate 50 mg tablet extended release 24 hr 150 mg PO HS lisinopril 20 mg tablet 20 mg PO DAILY Xarelto 20 mg tablet 20 mg PO DAILY Discharge Orders: Discharge Order (Routine); Ordered 01/26/24 Ordered By: Debbie De Los Santos Activity Level: No Restrictions Discharge Diet: Diabetic Follow Up Appointments: Provider,Not a Local [Primary Care Provider] - (5-7 days, BMP) Forms: [employer] Info Instructions
[2024-01-26 08:30] VITALS: BP 144/87; PULSE 70; RESP 18; TEMP 36.4; O2SAT 97
[2024-01-26] MEDS: CYANOCOBALAMIN (VITAMIN B-12) 500 MCG TABLET 1000 MCG PO (09:46)
== END 2024-01-26 11:10 | disposition home or self-care (01) | DRG 602 ==
LOC: ED 19:49 → MEDSURG 21:07
PROVIDERS: Family Medicine; Admitting Provider Family Medicine; Emergency Provider Student in an Organized Health Care Education/Training Program; Visit Provider Family Medicine
DX: L03.115 Cellulitis of right lower limb (principal); A41.9 Sepsis, unspecified organism; R65.20 Severe sepsis without septic shock; N17.9 Acute kidney failure, unspecified; Z68.43 Body mass index [BMI] 50.0-59.9, adult; I13.0 Hypertensive heart and chronic kidney disease with heart failure and stage 1 through stage 4 chronic kidney disease, or unspecified chronic kidney disease; I50.30 Unspecified diastolic (congestive) heart failure; I48.0 Paroxysmal atrial fibrillation; Z79.01 Long term (current) use of anticoagulants; E66.01 Morbid (severe) obesity due to excess calories; E78.5 Hyperlipidemia, unspecified; E03.9 Hypothyroidism, unspecified; E11.22 Type 2 diabetes mellitus with diabetic chronic kidney disease; N18.32 Chronic kidney disease, stage 3b
CPT/HCPCS: 36415; 80048; 80053; 81001; 82803; 82962; 83036; 83605; 83735; 84145; 84443; 84484; 85025; 86140; 87040; 87631; 93005; 97116; 97161; 97165; 99285; 99291; A9270; J0690; J0736; J2405; J7030

== ENCOUNTER 2024-03-01 15:09 | Day surgery (SDC) | payer MEDICARE, OTHER, SELFPAY ==
[2024-03-01] VITALS (15 sets, daily range): BP systolic 121–131; BP diastolic 41–56; PULSE 58–66; RESP 16–18; TEMP 36.1–36.5; O2SAT 93–100; BMI 48.4
--- OUTSIDE RECORDS SUMMARY | 2024-03-01 15:57 | XMS_ITS | Clinical Summary ---
Author Organization [facility] Address [address] Care Team Providers Care Shared Services And Outsourcing Manager Name Role Phone Marlon Valencia MD Unavailable [phone] Rob Beckford MD Primary Care Provider [phone] Smith Cheney MD Unavailable [phone] Allergies Active Allergy Reactions Criticality Noted Date Comments Gabapentin Anxiety Low 08/12/2022 Vancomycin Itching Medium 01/29/2021 Medications Medication Sig Dispensed Refills Start Date End Date Status iewwutb-ukgr-qyoda -oreg-capryl 100 mg-150 mg- 50 mg-150 mg capIndications:Ashly aurelio osteoarthritis of right knee Take 2 Each by mouth once daily. 0 11/29/19 21 Active cyanocobalamin (Vitamin B-12) 1,000 mcg tabletIndications: B12 deficiency Take 1 Tablet (1,000 mcg) by mouth once daily. 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 2 Each 05/16/19 22 Active cholecalciferol, Vitamin D3, (Vitamin D-3) 5,000 unit tab tabletIndications: Vitamin D deficiency Take 1 Tablet (5,000 units) by mouth once daily. 90 Tablet 3 08/31/19 22 Active blood-glucose meterIndications:C ontrolled type 2 diabetes mellitus without complication, without long-term current use of insulin (HC) Dispense meter, test strips, lancets covered by pt ins. E11.9 NIDDM type II - Test 3 times/day, Reason: High A1C 1 Each 12/11/19 23 Active acetaminophen SR (Tylenol 8 Hour) 650 mg Extended-Release tablet Take 650 mg by mouth every 8 hours if needed. Max acetaminophen dose: 4000mg in 24 hrs. Active blood sugar diagnostic (Contour Next Test Strips) stripIndications:C ontrolled type 2 diabetes mellitus with stage 3 chronic kidney disease, without long-term current use of insulin (HC) TEST 1 TIMES DAILY 100 Each 3 06/17/19 24 Active rivaroxaban (Xarelto) 20 mg tabletIndications: PAF (paroxysmal atrial fibrillation) (HC) Take 1 Tablet (20 mg) by mouth once daily with evening meal. 90 Tablet 3 07/15/19 24 Active lisinopriL (PRINIVIL; ZESTRIL) 20 mg tabletIndications: HTN (hypertension) Take 1 Tablet (20 mg) by mouth once daily. 90 Tablet 3 07/15/19 24 Active atorvastatin (LIPITOR) 40 mg tabletIndications: Mixed hyperlipidemia Take 1 Tablet (40 mg) by mouth at bedtime. 90 Tablet 3 08/14/19 24 Active metoprolol succinate (TOPROL XL) 100 mg Sustained-Release tabletIndications: Essential hypertension,Chron ic diastolic CHF (congestive heart failure) (HC),Paroxysmal atrial fibrillation with rapid ventricular response (HC) One tablet daily with 50 mg tablet to total 150 mg 90 Tablet 3 02/26/20 24 Active hydroCHLOROthiazid e 25 mg tabletIndications: Essential hypertension Take 1 Tablet (25 mg) by mouth once daily. For blood pressure. 90 Tablet 3 02/28/20 24 Active metoprolol succinate (TOPROL XL) 50 mg sustained-release tabletIndications: Essential hypertension,Chron ic diastolic CHF (congestive heart failure) (HC),Paroxysmal atrial fibrillation with rapid ventricular response (HC) TAKE 1 TABLET DAILY WITH 100 MG TABLET TO TOTAL 150 MG 90 Tablet 3 03/01/20 24 Active hydroCHLOROthiazid e (HCTZ) 25 mg tabletIndications: Essential hypertension Take 1 Tablet (25 mg) by mouth once daily. 90 Tablet 3 02/22/20 23 024 Discontinued(Re order (E-cancel not sent)) metoprolol succinate (TOPROL XL) 100 mg Sustained-Release tabletIndications: Essential hypertension,Chron ic diastolic CHF (congestive heart failure) (HC),Paroxysmal atrial fibrillation with rapid ventricular response (HC) One tablet daily with 50 mg tablet to total 150 mg 90 Tablet 3 02/22/20 23 024 Discontinued(Re order (E-cancel not sent)) metoprolol succinate (TOPROL XL) 50 mg sustained-release tabletIndications: Essential hypertension,Chron ic diastolic CHF (congestive heart failure) (HC),Paroxysmal atrial fibrillation with rapid ventricular response (HC) One tablet daily with 100 mg tablet to total 150 mg 90 Tablet 3 02/22/20 23 024 Discontinued(Re order (E-cancel not sent)) metoprolol succinate (TOPROL XL) 50 mg sustained-release tabletIndications: Essential hypertension,Chron ic diastolic CHF (congestive heart failure) (HC),Paroxysmal atrial fibrillation with rapid ventricular response (HC) One tablet daily with 100 mg tablet to total 150 mg 90 Tablet 3 02/26/20 24 024 Discontinued Active Problems Problem Noted Date Diagnosed Date Depression, recurrent 02/26/2024 Primary osteoarthritis of right knee 12/31/2023 Primary [...] Encounters Date Type Department Care Team Description 03/01/[address] [address] Rob Beckford MD Refill Request (Metoprolol Succinate) 02/27/2024 Lab Requisition [facility] [phone] Tessa Kirby MD 02/26/2024 3:05 PM CDT Office Visit [address] [address] Rob Beckford MD Medicare ANNUAL (subsequent) Visit (Age 69); Immunization/Injection ; Immunization/Injection (COVID-19 vaccine) 02/26/[address] [address] Rob Beckford MD Refill Request (Metoprolol Succinate) 02/26/2024 Travel 02/25/[address] [address] Rob Beckford MD Refill Request (Metoprolol Succinate) 02/21/2024 Travel 02/20/2024 1:00 PM CDT Ancillary Procedure [address] [place] [address] 02/20/2024 10:50 AM CDT Office Visit [facility] [address] [place] [address] Jo Ann Coates, DO Postmenopausal (Having bleeding for 3 days with clotting, also having some cramping ) 02/20/2024 Telephone [facility] [address] [place] [address] Jo Ann Coates, DO Results 02/19/2024 Travel 02/18/2024 Telephone [facility] [address] [place] [address] Rob Beckford MD Vaginal Bleeding; vaginal bleeding 02/16/2024 3:13 PM CDT - 02/16/2024 11:59 PM CDT Hospital Encounter [facility] [place] [address] [place] [address] [address] [place] [address] Jason Huff MD Finkel, Joann M, PT 02/16/2024 11:40 AM CDT Office Visit [facility] [address] [place] [phone] Lidia Mckay, JESÚS Eye Problem (Floaters) 02/16/2024 Travel 02/14/2024 Travel 02/13/2024 Telephone [facility] [address] [place] [phone] Lidia Mckay, JESÚS Questions (Vision change ) 02/05/2024 1:50 PM CDT Office Visit [facility] [address] [place] [address] Rob Beckford MD Hospital F/U ([facility] from 01/23/24 to 01/26/2024 for RIGHT Leg Cellulitis /Now having bilateral lower leg swelling, pain, stiffness, redness/RIGHT Knee is painful) 02/05/2024 Orders Only [facility] Scanner 1 scan: (1-Ord) INCOMING RECORDS-EKG, [facility], 02/05/2024 02/05/2024 Orders Only [facility] Scanner 1 scan: (1-Ord) INCOMING RECORDS-LABS, [facility], 02/05/2024 02/04/2024 Travel 02/03/2024 Telephone [facility] [address] [place] [address] Jason Huff MD UPDATE (Right knee) 01/30/2024 2:30 PM CDT Office Visit [facility] [address] [place] [address] Caitlin Husain PA Nose Problem 01/30/2024 Travel 01/27/2024 Telephone [facility] [address] [place] [address] Rob Beckford MD Questions 01/21/2024 12:58 PM CDT - 01/21/2024 11:59 PM CDT Hospital Encounter [facility] [place] [address] [place] [address] Jason Huff MD Finkel, Joann M, PT Primary osteoarthritis of right knee; Primary osteoarthritis of left knee; Lymphedema; Morbid obesity with BMI of 50.0-59.9, adult (HC) 01/21/2024 Travel 01/02/2024 Telephone [facility] Joint [facility] [address] [place] [address] Jason Huff MD Pain 12/31/2023 2:00 PM CDT Office [facility] [address] [place] [address] Jason Huff MD 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) 12/31/2023 Travel 12/29/2023 Travel 12/19/2023 11:20 AM CDT Office Visit [facility] [address] [place] [address] Lidia Mckay, OD Eye Exam (Diabetic) 12/19/2023 Travel 12/17/2023 Telephone [facility] [address] [facility] [place] [address] Rob Beckford MD Questions (Orthopedic referral ) 12/12/2023 Telephone [facility] [place] [address] Rob Beckford MD Questions 12/11/2023 10:45 AM CDT Office Visit [facility] [address] oRb Beckford MD Diabetes (Last Diabetic Check: 08/14/2023/Last Diabetic Eye Exam: ?/Last Diabetic Education: ?); Musculoskeletal Problem (Follow-up Chronic Bilateral Knee pain - would like injection today/RIGHT knee is worse today) 12/11/2023 Travel 12/09/2023 11:30 AM CDT Orders Only [place] [address] [address] [facility] [place] [address] Lab, [place] [facility] 12/09/2023 10:45 AM CDT Ancillary Procedure [facility] [address] [facility] [place] [address] 12/09/2023 Travel 12/01/2023 Telephone [facility] [address] [facility] [place] [address] Rob Beckford MD Lab from Last 3 Months Immunizations Name Administration Dates Next Due COVID-19 VACCINE SPIKEVAX (M ODERNA 50MCG/0.5ML) 12YO+ PFS 02/26/2024,02/13/2023 COVID-19 vaccine (Pfizer-Bio NTech 30mcg/0.3mL) 12YO+ BIVALENT PF, MDV 02/01/2022 COVID-19 vaccine (Pfizer-Bio NTech 30mcg/0.3mL) 12YO+ CADE-SUCROSE PF, MDV 08/30/2021 COVID-19 vaccine (Pfizer-Bio NTech 30mcg/0.3mL) PF, MDV 03/09/2021 Influenza, Inactivated AIIV4 (Age 65+ Years) Preserv Free 02/13/2023,02/01/2022,05/02/2021 Influenza, Inactivated IIV3 (Age 65+ Years) Preserv Free 02/26/2024 Pneumococcal Conj 20-valent (Prevnar 20) 023 Pneumococcal conj 13-Valent (Prevnar 13) 021 Td (Age >=7 Years) 03/08/2019 Family History Medical History Relation Name Comments Coronary artery disease Brother 1 Hyperlipidemia Brother 1 Coronary artery disease Brother 2 Hyperlipidemia Brother 2 Coronary artery disease Father Hypertension Mother Kidney disease Mother Diabetes type II Paternal Grandmother Diabetes Sister Relation Name Status Comments Brother 1 Brother 2 Alive Father Mother Paternal Grandmother Sister Social History Tobacco Use Types Packs/Day Years Used Date Smoking Tobacco: Former Cigarettes 1 40 1 [id number] Smokeless Tobacco: Never Tobacco Cessation:Counseling Given: Yes Comments:smoke for 40 years Alcohol Use Standard Drinks/Week Comments Not Currently 0 (1 standard drink = 0.6 oz pur e alcohol) PHQ-2 Answer Date Recorded PHQ-2 TOTAL SCORE 3 02/26/2024 Social Connections Answer Date Recorded Do you often feel lonely or isolated from those around you? 0 08/14/2023 Financial Resource Strain Answer Date R ecorded Difficulty of Paying Living Expenses 3 08/14/2023 Difficulty of Paying Living Expenses Not on file 08/14/2023 Food Insecurity Answer Date Recorded Do you worry your food will run out before you are able to buy more? 1 08/14/2023 Transportation Needs Answer Date Record ed Does lack of transportation keep you from medica l appointments? 1 08/14/2023 Does lack of transportation keep you from work, meetings or getting things that you need? 1 08/14/2023 Housing Stability Answer Date Recorded What is your housing situation today? 1 08/14/2023 Sex and Gender Information Value Date Recorded Sex Assigned at Not on file Gender Identity Not on file Sexual Orientation Not on file Obstetrics History Last Filed Vital Signs Vital Sign Reading Time Taken Comments Blood Pressure 108/66 02/26/2024 3:16 PM CDT Pulse 61 02/26/2024 3:16 PM CDT Temperature 37.1 ??C (98.7 ??F) 02/20/2024 10:52 AM C DT Respiratory Rate 18 05/30/2020 9:55 AM HOSPITAL EDUCATOR Oxygen Saturation 100% 02/26/2024 3:16 PM CDT Inhaled Oxygen Concentration - - Weight 146.5 kg (323 lb) 02/26/2024 3:16 PM CDT Height 167.6 cm (5' 6) 02/26/2024 3:16 PM CDT Body Mass Index 52.13 02/26/2024 3:16 PM CDT Plan of Treatment Upcoming Encounters Date Type Department Care Team (Late st Contact Info) Description 03/03/2024 3:30 PM HOSPITAL EDUCATOR Appointment [facility] [place] [address] [place] [address] [place] [address] [place] [address] 03/11/2024 2:00 PM HOSPITAL EDUCATOR Appointment [facility] [place] [address] [place] [address] [place] [address] [place] [address] 03/18/2024 2:45 PM HOSPITAL EDUCATOR Appointment [facility] - [place] [address] [place] [address] [place] [address] [place] [address] 04/12/2024 10:40 AM HOSPITAL EDUCATOR Ancillary Procedure [facility] [address] [place] [address] 04/12/2024 11:10 AM HOSPITAL EDUCATOR Office Visit [facility] [address] [place] [address] Rob Beckford MD [address] [place] [address] Health Maintenance Due Date Last Done Comments Tdap 01/04/1967 Zoster (shingles) series for age 50+ (1 of 2) 01/04/2006 Fecal testing non-DNA (FIT,FOBT,iFOBT) for age 45-75 02/06/2024 02/05/2023, 05/03/2021, 06/02/2020, Additional history exists Mammogram for age 45-75 03/21/2024 03/21/2023, 05/[address] (for lung CA) ag e 50-80 10/09/2024 10/10/2023, 10/09/2022, 08/29/2021, Additional history exists BMI (ht and wt on same day) for age 18+ 02/25/2025 02/26/2024, 07/15/2023, 02/21/2023, Additional history exists Medicare Wellness for age 65+ 02/26/2025, 02/21/2023, 08/30/2021 Depression screening for age 12+ 03/01/2025 03/01/2024, 02/26/2024, 02/26/2024, Additional history exists Lipids for age 45-75 02/04/2029 02/05/2024, 02/14/2023, 03/04/2022, Additional history exists Tetanus booster 03/08/2029 03/08/2019 Hepatitis C screening for ag e 18-79 Completed 02/09/2019 DEXA/DXA scan for age 65+ Completed 05/08/2021 Pneumococcal series for age 65+ Completed 3, 11/28/2020 COVID-19 vaccine series Completed 02/26/20 24, 02/13/2023, 02/01/2022, Additional history exists Influenza for age 65+ Completed 02/26/2024 , 02/13/2023, 02/01/2022, Additional history exists Procedures Procedure Name Priority Date/Time Associated Diagnosis Comments US PELVIS COMPLETE TV STAT 02/20/2024 12:42 PM CDT PMB (postmenopausal bleeding) CBC W PLT NO DIFF Routine 02/20/2024 12: 41 PM CDT PMB (postmenopausal bleeding) LIPID PANEL W REFLEX MEASURED LDL Routine 02/05/2024 2:48 PM CDT Mixed hyperlipidemia BASIC METABOLIC PANEL Routine 02/05/2024 2:48 PM CDT Stage 3b chronic kidney disease (HC) Cellulitis of right leg SCAN CORRESP-EKG RESULTS 02/05/2024 12:00 AM CDT SCAN CORRESP-LABORATORY RESULTS 02/05/2024 12:00 AM CDT HEMOGLOBIN A1C MONITORING (POCT) Routine 01/24/2024 Type 2 diabetes mellitus with stage 3b chronic kidney disease, without long-term current use of insulin (HC) POTASSIUM Routine 12/11/2023 12:17 PM CDT Hyperkalemia [...] ANGELICA BILAT SCREEN Routine 03/21/2023 10:57 AM HOSPITAL EDUCATOR Visit for screening mammogram OCCULT BLOOD IFOBT STOOL Routine 02/05/2023 2:11 PM CDT Screening for colorectal cancer XR DXA BONE DENSITY 2 SITES AXIAL AND 1 SITE PERIPHERAL Routine 05/08/2021 11:16 AM HOSPITAL EDUCATOR Postmenopausal ANTI HCV Routine 02/09/2019 12:25 PM CDT Need for hepatitis C screening test from Last 3 Months or Most Recently Relevant to Health Maintenance Results * US PELVIS COMPLETE TV (02/20/2024 12:42 PM CDT) Anatomical Region Laterality Modality Pelvis, OVARIES, UTERUS Ultrasou nd 02/20/2024 12:5 1 PM CDT Addenda Addendum by Chidi Hall MD on 02/20/2024 1:04 PM CDT INDICATION: PMB (postmenopausal bleeding) COMPARISON: None TECHNIQUE: Beckham-scale and color Doppler ultrasound of the uterus and ovaries from a transvaginal approach. Transvaginal ultrasound of the pelvis was performed to better visualize the genitourinary organs, such as the ovaries and/or endometrium. FINDINGS: The uterus measures 8.9 x 4.4 x 3.8 cm and demonstrates normal echogenicity. No uterine masses. The endometrium is heterogeneous and measures 1.2 centimeters in thickness. No endometrial masses. The cervix is unremarkable. The bilateral ovaries are not visualized on this exam. There are no suspicious adnexal masses/lesions. No free fluid. IMPRESSION: 1. The endometrium is heterogeneous and measures 1.2 centimeters in thickness. In patient with history of postmenopausal bleeding, findings are concerning for endometrial malignancy and consultation with gynecology is recommended for further management recommendations. 2. The bilateral ovaries are not visualized on this exam. Dictated by Chidi Hall MD @ 02/20/2024 12:51:04 PM ----- ADDENDUM ----- Report was received by Dr. Coates at 1 p.m. on 02/20/2024. Dictated by Chidi Hall MD @ Feb 20 2024 ??1:03PM (Electronically Signed) Impressions 02/20/2024 12:51 PM CDT 1. The endometrium is heterogeneous and measures 1.2 centimeters in thickness. In patient with history of postmenopausal bleeding, findings are concerning for endometrial malignancy and consultation with gynecology is recommended for further management recommendations. 2. The bilateral ovaries are not visualized on this exam. Dictated by Chidi Hall MD @ 02/20/2024 12:51:04 PM (Electronically Signed) Narrative 02/20/2024 12:51 PM CDT For Patients: ??As a result of the Cures Act, medical imaging exams and procedure reports are released immediately into your electronic medical record. ??You may view this report before your referring provider. ??If you have questions, please contact your health care provider. INDICATION: PMB (postmenopausal bleeding) COMPARISON: None TECHNIQUE: Beckham-scale and color Doppler ultrasound of the uterus and ovaries from a transvaginal approach. Transvaginal ultrasound of the pelvis was performed to better visualize the genitourinary organs, such as the ovaries and/or endometrium. FINDINGS: The uterus measures 8.9 x 4.4 x 3.8 cm and demonstrates normal echogenicity. No uterine masses. The endometrium is heterogeneous and measures 1.2 centimeters in thickness. No endometrial masses. The cervix is unremarkable. The bilateral ovaries are not visualized on this exam. There are no suspicious adnexal masses/lesions. No free fluid. Procedure Note Chidi Hall MD - 02/20/2024 For Patients: As a result of the Cures Act, medical imagingexams and procedure reports are released immediately into your electronicmedical record. You may view this report before your referring provider.If you have questions, please contact your health care provider. INDICATION: PMB (postmenopausal bleeding) COMPARISON: None TECHNIQUE: Beckham-scale and color Doppler ultrasound of the uterus and ovaries from atransvaginal approach. Transvaginal ultrasound of the pelvis was performedto better visualize the genitourinary organs, such as the ovaries and/orendometrium. FINDINGS: The uterus measures 8.9 x 4.4 x 3.8 cm and demonstrates normalechogenicity. No uterine masses. The endometrium is heterogeneous and measures 1.2 centimeters inthickness. No endometrial masses. The cervix is unremarkable. The bilateral ovaries are not visualized on this exam. There are nosuspicious adnexal masses/lesions. No free fluid. IMPRESSION: 1. The endometrium is heterogeneous and measures 1.2 centimeters inthickness. In patient with history of postmenopausal bleeding, findingsare concerning for endometrial malignancy and consultation with gynecologyis recommended for further management recommendations. 2. The bilateral ovaries are not visualized on this exam. Dictated by Chidi Hall MD @ 02/20/2024 12:51:04 PM (Electronically Signed) Jo Ann Coates DO US * (ABNORMAL) CBC W PLT NO DIFF (02/20/2024 12:41 PM CDT) WHITE BLOOD COUNT 11.9(H) 4.5 - 11.0 thou/cu mm 02/20/2024 5:08 PM CDT [facility] RED BLOOD COUNT 3.93(L) 4.00 - 5.20 mil/cu mm 02/20/2024 5:08 PM T [facility] HEMOGLOBIN 12.1 12.0 - 16.0 g/dL 02/20/2024 5:08 PM T [facility] HEMATOCRIT 36.2 33.0 - 51.0 % 02/20/2024 5:08 PM T [facility] MCV 92 80 - 100 fL 02/20/2024 5:08 PM T [facility] MCH 30.8 26.0 - 34.0 pg 02/20/2024 5:08 PM [facility] MCHC 33.4 32.0 - 36.0 g/dL 02/20/2024 5:08 PM T [facility] RDW 14.2 11.5 - 15.5 % 02/20/2024 5:08 PM [facility] PLATELET COUNT 234 140 - 440 thou/cu mm 02/20/2024 5:08 PM T [facility] MPV 10.7 6.5 - 11.0 fL 02/20/2024 5:08 PM [facility] Blood BLOOD SPECIMEN / Unknown [facility] / Unknown 02/20/2024 12:41 PM CDT 02/20/2024 12:41 PM CDT Jo Ann Coates DO HEMATOLOGY [facility] [address] [place] [address] * (ABNORMAL) LIPID PANEL W REFLEX MEASURED LDL (02/05/2024 2:48 PM CDT) CHOLESTEROL, TOTAL 158 <200 mg/dL [facility] HDL CHOLESTEROL 36(L) > OR = 50 mg/dL [facility] TRIGLYCERIDES 230(H) <150 mg/dL [facility] Comment: If a non-fasting specimen was collected, consider repeat triglyceride testing on a fasting specimen if clinically indicated. Ward et al. J. of Clin. Lipidol. 2015;9:129-169. LDL-CHOLESTEROL 90 mg/dL (calc) [facility] Comment: Reference range: <100 Desirable range <100 mg/dL for primary prevention; ?? <70 mg/dL for patients with CHD or diabetic patients with > or = 2 CHD risk factors. LDL-C is now calculated using the Ervin calculation, which is a validated novel method providing better accuracy than the Friedewald equation in the estimation of LDL-C. Corey SS et al. AAYUSH. 2013;310(19): 7665-5564 (http://education.Arria NLG/faq/JLX188) CHOL/HDLC RATIO 4.4 <5.0 (calc) [facility] NON HDL CHOLESTEROL 122 <130 mg/dL (calc) [facility] Comment: For patients with diabetes plus 1 major ASCVD risk factor, treating to a non-HDL-C goal of <100 mg/dL (LDL-C of <70 mg/dL) is considered a therapeutic option. Blood BLOOD SPECIMEN / Unknown 02/05/2024 2:48 PM CDT 02/05/2024 2:49 PM CDT Rob Beckford MD CHEMISTRY [facility] [address] [place] [address], [facility] [address] [place] [address] * (ABNORMAL) BASIC METABOLIC PANEL (02/05/2024 2:48 PM CDT) Only the most recent of2 resultswithin the time period is included. GLUCOSE 128(H) 65 - 99 mg/dL [facility] Comment: ? Fasting reference interval For someone without known diabetes, a glucose value >125 mg/dL indicates that they may have diabetes and this should be confirmed with a follow-up test. UREA NITROGEN (BUN) 33(H) 7 - 25 mg/dL [facility] CREATININE 1.32(H) 0.50 - 1.05 mg/dL [facility] EGFR 44(L) > OR = 60 mL/min/1.7 3m2 [facility] BUN/CREATININE RATIO 25(H) 6 - 22 (calc) [facility] SODIUM 137 135 - 146 mmol/L [facility] POTASSIUM 5.4(H) 3.5 - 5.3 mmol/L [facility] CHLORIDE 101 98 - 110 mmol/L [facility] CARBON DIOXIDE 22 20 - 32 mmol/L [facility] ELECTROLYTE BALANCE 14 7 - 17 mmol/L (calc) [facility] CALCIUM 9.7 8.6 - 10.4 mg/dL [facility] Blood BLOOD SPECIMEN / Unknown 02/05/2024 2:48 PM CDT 02/05/2024 2:49 PM CDT Rob Beckford MD CHEMISTRY [facility] [address] [place] [address], [facility] [address] [place] [address] * SCAN CORRESP-LABORATORY RESULTS (02/05/2024 12:00 AM CDT) Scanner OTHER * SCAN CORRESP-EKG RESULTS (02/05/2024 12:00 AM CDT) Scanner OTHER * (ABNORMAL) HEMOGLOBIN A1C MONITORING (POCT) (01/24/2024) Only the most recent of2 resultswithin the time period is included. HEMOGLOBIN A1C MONITORING (POCT) 7.1(SHOT PEEN OPERATOR AL) <=6.4 % [facility] Blood BLOOD SPECIMEN / Unknown 01/24/2024 Rob Beckford MD CHEMISTRY [facility] [address] [place] [address] * POTASSIUM (12/11/2023 12:17 PM CDT) POTASSIUM 4.9 3.5 - 5.1 mmol/L 12/11/2023 10:41 PM CDT [facility] Blood BLOOD SPECIMEN / Unknown Venipuncture / Unknown 12/11/2023 12:17 PM CDT 12/11/2023 12:19 PM CDT Rob Beckford MD CHEMISTRY Performing Organization Address City/[facility]/ZIP Co de Phone Number [facility] [address] [address], [place] * XR KNEE WB 2 VIEWS BILATERAL AND 1 VIEW BILATERAL (12/09/2023 10:46 AM CDT) Anatomical Region Laterality Modality KNEES Computed Radiogr aphy 12/09/2023 3:27 PM CDT Narrative 12/09/2023 3:27 PM CDT For Patients: ??As a result of the 21st Century Cures [...] MAMMO ANGELICA BILAT SCREEN (03/21/2023 10:57 AM HOSPITAL EDUCATOR) Anatomical Region Laterality Modality BREASTS, Breast Left, Breast Right Bilateral Mammography Impressions 03/21/2023 4:49 PM HOSPITAL EDUCATOR ??There is no radiographic evidence for malignancy. ??Recommend annual mammograms. MAMMOGRAM ASSESSMENT: ??ACR 1 Negative PATIENTS: You will also receive a letter with your examination results in an easy to read format. ??If you have questions about your results, please contact your referring provider. Narrative 03/21/2023 4:49 PM HOSPITAL EDUCATOR For Patients: As a result of the Cures Act, medical imaging exams and procedure reports are released immediately into your electronic medical record. You may view this report before your referring provider. If you have questions, please contact your health care provider. XR MAMMO ANGELICA BILAT SCREEN [[id number]] CLINICAL HISTORY: ??This is an asymptomatic 68 y.o. patient. INDICATION FOR EXAM: Mammogram Screening. TECHNIQUE: CC & MLO views were obtained. ??This study was evaluated with the assistance of Computer-Aided Detection. Breast Tomosynthesis was used in interpretation. COMPARISON FILM: Yes 05/08/21 [place] ?? FINDINGS: ??The breasts have scattered areas of fibroglandular density. There are no dominant masses, suspicious micro calcifications or areas of architectural distortion. Rob Beckford MD MAMMO * OCCULT BLOOD IFOBT STOOL (02/05/2023 2:11 PM CDT) STOOL BLOOD ,IFOBT Negative Negative 02/07/2023 3:08 PM CDT [facility] Stool STOOL SPECIMEN / Unknown Non-Blood / Unknown 02/05/2023 2:11 PM CDT 02/07/2023 2:11 PM CDT Amy Carrasco MD LABORATORY [facility] [address] [place] [address], * XR DXA BONE DENSITY 2 SITES AXIAL AND 1 SITE PERIPHERAL (05/08/2021 11:16 AM HOSPITAL EDUCATOR) Anatomical Region Laterality Modality LUMBAR SPINE Other Impressions 05/09/2021 5:37 PM HOSPITAL EDUCATOR Normal bone density. RECOMMENDATIONS: The National Osteoporosis [...] Chelsy Vicente PA-C Narrative 05/09/2021 5:37 PM HOSPITAL EDUCATOR For Patients: Results are automatically released to your [facility] account once available, in compliance with federal regulations. This means that you may see your results before your provider has had a chance to review them. Please allow 2-3 business days for your provider to comment on the results. XR DXA Bone Mineral Density (BMD) EXAM LOCATION: [address] [address] PATIENT NAME: Chelo Torres DATE OF : [...] two scanners are made by the same fulfillment mail clerk. PROCEDURE: Dual-energy x-ray absorptiometry performed with routine [...] marjorie Non-React marjorie 02/09/2019 8:25 PM CDT [facility] Comment:Antibodies to HCV no t detected; does not exclude the possibility of exposure to HCV. Blood BLOOD SPECIMEN / Unknown Venipuncture / Unknown 02/09/2019 12:25 PM CDT 02/09/2019 12:29 PM CDT Anish Hutchinson MD SEND OUTS [facility] [address] [place] [address], [place] from Last 3 Months or Most Recently Relevant to Health Maintenance Care Teams Shared Services And Outsourcing Manager Relationship Specialty Start Date End [place] [address] [address] PCP - General Family Practice 02/21/23 Marlon Valencia MD [address] [place] [address] Nephrology Nephrology 02/21/23 Smith Cheney MD [address] [place] [address] Cardiology Cardiovascular Disease 02/26/24
--- NOTE | 2024-03-01 16:25 | ED_ITS ---
HPI - Female Genitourinary General Date Seen: 03/01/24 <Leeroy De La Garza DO - Last Filed: 03/01/24 17:25> Chief complaint: Vaginal Bleeding <Leeroy P Frederic DO - Last Filed: 03/01/24 17:25> Stated complaint: Postmenopausal bleeding <Leeroy De La Garza DO - Last Filed: 03/01/24 17:25> Time Seen by Provider: 03/01/24 15:46 <Leeroy De La Garza DO - Last Filed: 03/01/24 17:25> Source: patient <Leeroy De La Garza DO - Last Filed: 03/01/24 17:25> Mode of arrival: ambulatory <Leeroy De La Garza - Last Filed: 03/01/24 17:25> Limitations: no limitations <Leeroycristian De La Garza DO - Last Filed: 03/01/24 17:25> History of Present Illness HPI Narrative: Patient is a 69-year-old female presenting to the emergency department for vaginal bleeding. This has been going on for the past couple weeks. She has already seen OB Gyne here in [place] for and had endometrial biopsy. She states initially the bleeding has been on and off but has been more consistent recently. She has not noticed any changes in the bleeding since she saw Dr. Kirby on 02/27/2024. She is currently on Xarelto was only taking it every other day at this point. Over the past couple days she has noticed some increase in lightheadedness and tunnel vision and states is worse when she gets up and moving around but is asymptomatic at this time. States she has not been using any pads because they get saturate too fast instead of been using a adult diaper. She has not had issues of vaginal bleeding before. No other concerns noted. She did have an ultrasound done on 02/20/2024 shows a heterogeneous endometrium that is 1.2 cm in thickness. <Leeroy De La Garza DO - Last Filed: 03/01/24 17:25> Related Data Home medications: Home Medications ?Medication ?Instructions ?Recorded ?Confirmed atorvastatin 40 mg tablet 40 mg PO HS 02/02/22 02/27/24 hydrochlorothiazide 25 mg tablet 25 mg PO HS 02/02/22 02/27/24 cyanocobalamin (vitamin B-12) 1,000 mcg PO DAILY 08/12/22 02/27/24 1,000 mcg tablet metoprolol succinate 50 mg 150 mg PO HS 08/12/22 02/27/24 tablet,extended release 24 hr lisinopril 20 mg tablet 20 mg PO DAILY 01/24/24 02/27/24 rivaroxaban 20 mg tablet (Xarelto) 20 mg PO DAILY 01/24/24 02/27/24 acetaminophen 650 mg 1,300 mg PO Q12H 02/27/24 02/27/24 tablet,extended release (Tylenol Arthritis Pain) cholecalciferol (vitamin D3) 125 125 mcg PO QDAY 02/27/24 02/27/24 mcg (5,000 unit) capsule turmeric 400 mg capsule mg PO 02/27/24 02/27/24 Previous Rx's ?Medication ?Instructions ?Recorded medroxyprogesterone 10 mg tablet 20 mg (2 x 10 mg) PO TID 7 days 03/01/24 (Provera) #42 tabs <Leeroy De La Garza DO - Last Filed: 03/01/24 17:25> Allergies/Adverse reactions: Allergies Allergy/AdvReac Type Severity Reaction Status Date / Time gabapentin AdvReac Mild Anxiety Verified 03/01/24 15:32 vancomycin AdvReac Red Man Verified 03/01/24 15:32 Syndrome <Leeroy De La Garza DO - Last Filed: 03/01/24 17:25> Review of Systems Status of ROS: Reports: 10 or more systems reviewed and unremarkable except as noted in History and below <Leeroy De La Garza DO - Last Filed: 03/01/24 17:25> [facility] Medical History: Medical History Edema of both lower legs due to peripheral venous insufficiency ?I87.2 - Venous insufficiency (chronic) (peripheral) (ICD-10) ?R60.0 - Localized edema (ICD-10) Symptomatic congestive heart failure ?I50.9 - Heart failure, unspecified (ICD-10) Postmenopausal vaginal bleeding (08/21/22) ?N95.0 - Postmenopausal bleeding (ICD-10) Mild mitral valve regurgitation ?I34.0 - Nonrheumatic mitral (valve) insufficiency (ICD-10) Mild left ventricular hypertrophy ?I51.7 - Cardiomegaly (ICD-10) Mild aortic valve stenosis ?I35.0 - Nonrheumatic aortic (valve) stenosis (ICD-10) Mild aortic valve regurgitation ?I35.1 - Nonrheumatic aortic (valve) insufficiency (ICD-10) 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) ?R79.83 - Abnormal findings of blood amino-acid level (ICD-10) Family history of clotting disorder ?Z83.2 - Family history of diseases of the blood and blood-forming organs and certain disorders involving the immune mechanism (ICD-10) Cardiomyopathy due to hypertension ?I11.9 - Hypertensive heart disease without heart failure (ICD-10) ?I43 - Cardiomyopathy in diseases classified elsewhere (ICD-10) Primary osteoarthritis of both knees ?M17.0 - Bilateral primary osteoarthritis of knee (ICD-10) Chronic anticoagulation ?Z79.01 - manager terminal (current) use of anticoagulants (ICD-10) PAF (paroxysmal atrial fibrillation) ?I48.0 - Paroxysmal atrial fibrillation (ICD-10) Hypertension ?I10 - Essential (primary) hypertension (ICD-10) Family history of clotting disorder ?Z83.2 - Family history of diseases of the blood and blood-forming organs and certain disorders involving the immune mechanism (ICD-10) Infection with ESBL Klebsiella oxytoca ?A49.8 - Other bacterial infections of unspecified site (ICD-10) ?Z16.12 - Extended spectrum beta lactamase (ESBL) resistance (ICD-10) Postmenopausal vaginal bleeding ?N95.0 - Postmenopausal bleeding (ICD-10) 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) Bilateral lower extremity edema ?R60.0 - Localized edema (ICD-10) Controlled type 2 diabetes mellitus ?E11.9 - Type 2 diabetes mellitus without complications (ICD-10) Hypothyroidism ?E03.9 - Hypothyroidism, unspecified (ICD-10) Anemia ?D64.9 - Anemia, unspecified (ICD-10) Cellulitis of left lower extremity without foot ?L03.116 - Cellulitis of left lower limb (ICD-10) Acute appendicitis with appendiceal abscess ?K35.33 - Acute appendicitis with perforation, localized peritonitis, and gangrene, with abscess (ICD-10) Diastolic CHF with preserved left ventricular function, NYHA class 2 ?I50.30 - Unspecified diastolic (congestive) heart failure (ICD-10) Mild mitral regurgitation ?I34.0 - Nonrheumatic mitral (valve) insufficiency (ICD-10) Mild left ventricular hypertrophy ?I51.7 - Cardiomegaly (ICD-10) Mild aortic insufficiency ?I35.1 - Nonrheumatic aortic (valve) insufficiency (ICD-10) Hypertensive cardiomyopathy ?I11.9 - Hypertensive heart disease without heart failure (ICD-10) ?I43 - Cardiomyopathy in diseases classified elsewhere (ICD-10) Mild aortic stenosis ?I35.0 - Nonrheumatic aortic (valve) stenosis (ICD-10) Stage 3b chronic kidney disease ?N18.32 - Chronic kidney disease, stage 3b (ICD-10) Morbidly obese ?E66.01 - Morbid (severe) obesity due to excess calories (ICD-10) Paroxysmal atrial fibrillation with rapid ventricular response ?I48.0 - Paroxysmal atrial fibrillation (ICD-10) Hyperlipidemia ?E78.5 - Hyperlipidemia, unspecified (ICD-10) <Leeroy De La Garza DO - Last Filed: 03/01/24 17:25> Surgical History: Surgical History S/P laparoscopic appendectomy (~06/2019) ?Z90.49 - Acquired absence of other specified parts of digestive tract (ICD- 10) <Leeroy De La Garza DO - Last Filed: 03/01/24 17:25> Family History: Family History Brother Coronary artery disease High cholesterol Father Coronary artery disease Sister Diabetes Mother High blood pressure <Leeroy De La Garza DO - Last Filed: 03/01/24 17:25> Social History: Social History Narrative: Smoked 40 pack-years, quit in 2016. Drinks 2-3 drinks per year. Denies recreational drug use. Never , no kids. Leila (friend) is emergency contact. Born [place] raised in . Lives alone. 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 What is your current living situation?: I presently have a place to live Problems where you live: no known problems Problems where you live details: n/a In the past 12 months, utilities in danger of being shut off: no In past 12 months, lack of transportation kept you from medical appts, meetings, work, or getting things needed for daily living: no In the past 12 mos, have been you worried that your food would run out before you had money to buy more?: never true In the past 12 mos, the food you bought just didn't last and you didn't have money to buy more?: never true Highest level of school completed/degree received: Associate degree: occupational, technical, vocational program Smoking Status: Former smoker Do you use any of these nicotine containing products: None Second hand tobacco smoke exposure: No How often do you have a drink containing alcohol: monthly or less How often do you have six or more drinks on one occasion: Never AUDIT-C Alcohol total score: 1 Non-prescribed substance use: denies use Caffeine: Yes How often does anyone, including family, friends and others, physically hurt you : never How often does anyone, including family, friends and others, insult or talk down to you: never How often does anyone, including family, friends and others, threaten you with harm: never How often does anyone, including family, friends and others, scream or curse at you: never service: No <Leeroy De La Garza DO - Last Filed: 03/01/24 17:25> Exam Narrative: Exam Narrative: Const: Well-nourished, Well-developed, in mild distress Eyes: PERRL, no conjunctival injection, and symmetrical lids HENT: Atraumatic external nose and ears. Moist mucous membranes. Neck: Symmetric, trachea midline, No thyromegaly. CVS: RRR, No murmurs or gallops. Peripheral pulses 2+ and equal in all extremities RESP: Unlabored respiratory effort. Clear to auscultation bilaterally. GI: Nontender/Nondistended, No rebound or guarding. Pelvic: Moderate amount of blood within the vaginal vault MSK:Extremities w/o deformity, Normal Active ROM Skin: Warm, Dry. No rashes or lesions. Neuro: Normal Muscle tone, No focal neurological deficits. Psych: Awake, Alert, & Oriented x3. Appropriate mood and affect. <Leeroy De La Garza DO - Last Filed: 03/01/24 17:25> Const: Vital Signs, click to edit/add: Vital Signs - 24 hr 03/01/24 15:26 03/01/24 16:00 03/01/24 16:01 Temperature 97.7 F Pulse Rate Pulse Rate [Left P ulse Oximeter] 66 Respiratory Rate 16 Blood Pressure Blood Pressure [Ri ght Forearm] 127/45 L Pulse Oximetry 100 100 99 Oxygen Delivery Me thod Room Air 03/01/24 16:10 03/01/24 16:12 03/01/24 16:15 Temperature Pulse Rate 66 Pulse Rate [Left P ulse Oximeter] Respiratory Rate Blood Pressure Blood Pressure [Ri ght Forearm] Pulse Oximetry 99 93 100 Oxygen Delivery Me thod 03/01/24 16:23 03/01/24 16:30 03/01/24 16:31 Temperature Pulse Rate Pulse Rate [Left P ulse Oximeter] Respiratory Rate Blood Pressure Blood Pressure [Ri ght Forearm] Pulse Oximetry 100 100 100 Oxygen Delivery Me thod 03/01/24 16:40 03/01/24 16:45 03/01/24 17:06 Temperature Pulse Rate 66 Pulse Rate [Left P ulse Oximeter] 61 Respiratory Rate 18 Blood Pressure Blood Pressure [Ri ght Forearm] 121/44 L Pulse Oximetry 100 100 100 Oxygen Delivery Me thod Room Air 03/01/24 18:50 03/01/24 19:47 03/01/24 19:50 Temperature 97.0 F L 97.1 F L 97.0 F L Pulse Rate 58 L Pulse Rate [Left P ulse Oximeter] 61 61 Respiratory Rate 16 16 16 Blood Pressure 131/41 L Blood Pressure [Ri ght Forearm] 123/53 L 124/56 L Pulse Oximetry 94 98 98 Oxygen Delivery Me thod Room Air Room Air Room Air <Leeroy De La Garza, DO - Last Filed: 03/01/24 17:25> Vital Signs, click to edit/add: Vital Signs - 24 hr 03/01/24 15:26 03/01/24 16:00 03/01/24 16:01 Temperature 97.7 F Pulse Rate Pulse Rate [Left P ulse Oximeter] 66 Respiratory Rate 16 Blood Pressure Blood Pressure [Ri ght Forearm] 127/45 L Pulse Oximetry 100 100 99 Oxygen Delivery Me thod Room Air 03/01/24 16:10 03/01/24 16:12 03/01/24 16:15 Temperature Pulse Rate 66 Pulse Rate [Left P ulse Oximeter] Respiratory Rate Blood Pressure Blood Pressure [Ri ght Forearm] Pulse Oximetry 99 93 100 Oxygen Delivery Me thod 03/01/24 16:23 03/01/24 16:30 03/01/24 16:31 Temperature Pulse Rate Pulse Rate [Left P ulse Oximeter] Respiratory Rate Blood Pressure Blood Pressure [Ri ght Forearm] Pulse Oximetry 100 100 100 Oxygen Delivery Me thod 03/01/24 16:40 03/01/24 16:45 03/01/24 17:06 Temperature Pulse Rate 66 Pulse Rate [Left P ulse Oximeter] 61 Respiratory Rate 18 Blood Pressure Blood Pressure [Ri ght Forearm] 121/44 L Pulse Oximetry 100 100 100 Oxygen Delivery Me thod Room Air 03/01/24 18:50 03/01/24 19:47 03/01/24 19:50 Temperature 97.0 F L 97.1 F L 97.0 F L Pulse Rate 58 L Pulse Rate [Left P ulse Oximeter] 61 61 Respiratory Rate 16 16 16 Blood Pressure 131/41 L Blood Pressure [Ri ght Forearm] 123/53 L 124/56 L Pulse Oximetry 94 98 98 Oxygen Delivery Me thod Room Air Room Air Room Air <Danya Jones MD - Last Filed: 03/02/24 00:20> Course Vital Signs Vital signs: Initial Vital Signs Temperature 97.7 F 03/01/24 15:26 Temperature Source Oral 03/01/24 15:26 Pulse Rate 66 03/01/24 15:26 Respiratory Rate 16 03/01/24 15:26 Blood Pressure 127/45 L 03/01/24 15:26 Blood Pressure Mean 72 03/01/24 15:26 Blood Pressure Position Semi-Fowlers 03/01/24 15:26 Pulse Oximetry 100 03/01/24 15:26 Oxygen Delivery Method Room Air 03/01/24 15:26 Vital Signs Temperature 97.7 F 03/01/24 15:26 Pulse Rate 66 03/01/24 15:26 Respiratory Rate 16 03/01/24 15:26 Blood Pressure 127/45 L 03/01/24 15:26 Pulse Oximetry 100 03/01/24 15:26 Oxygen Delivery Method Room Air 03/01/24 15:26 Temperature 97.0 F L 03/01/24 19:50 Pulse Rate 61 03/01/24 19:50 Respiratory Rate 16 03/01/24 19:50 Blood Pressure 124/56 L 03/01/24 19:50 Pulse Oximetry 98 03/01/24 19:50 Oxygen Delivery Method Room Air 03/01/24 19:50 <Leeroy De La Garza DO - Last Filed: 03/01/24 17:25> Initial Vital Signs Temperature 97.7 F 03/01/24 15:26 Temperature Source Oral 03/01/24 15:26 Pulse Rate 66 03/01/24 15:26 Respiratory Rate 16 03/01/24 15:26 Blood Pressure 127/45 L 03/01/24 15:26 Blood Pressure Mean 72 03/01/24 15:26 Blood Pressure Position Semi-Fowlers 03/01/24 15:26 Pulse Oximetry 100 03/01/24 15:26 Oxygen Delivery Method Room Air 03/01/24 15:26 Vital Signs Temperature 97.7 F 03/01/24 15:26 Pulse Rate 66 03/01/24 15:26 Respiratory Rate 16 03/01/24 15:26 Blood Pressure 127/45 L 03/01/24 15:26 Pulse Oximetry 100 03/01/24 15:26 Oxygen Delivery Method Room Air 03/01/24 15:26 Temperature 97.0 F L 03/01/24 19:50 Pulse Rate 61 03/01/24 19:50 Respiratory Rate 16 03/01/24 19:50 Blood Pressure 124/56 L 03/01/24 19:50 Pulse Oximetry 98 03/01/24 19:50 Oxygen Delivery Method Room Air 03/01/24 19:50 <Danya Jones MD - Last Filed: 03/02/24 00:20> Medications Administered Medications: Discontinued Medications Generic Name Dose Route Start Last Admin Trade Name Freq PRN Reason Stop Dose Admin Medroxyprogesterone Acetate 20 mg 03/01/24 17:20 03/01/24 17:37 Medroxyprogesterone 5 Mg Tablet PO 03/01/24 17:21 20 mg ONCE ONE Administration <Leeroy De La Garza DO - Last Filed: 03/01/24 17:25> Discontinued Medications Generic Name Dose Route Start Last Admin Trade Name Freq PRN Reason Stop Dose Admin Medroxyprogesterone Acetate 20 mg 03/01/24 17:20 03/01/24 17:37 Medroxyprogesterone 5 Mg Tablet PO 03/01/24 17:21 20 mg ONCE ONE Administration <Danya Jones MD - Last Filed: 03/02/24 00:20> MDM - Female Genitourinary MDM Narrative Medical decision making narrative: Patient is a 69-year-old female presenting for vaginal bleeding. There is a moderate amount of blood within the vaginal vault. Her adult diaper that she was wearing told the blood did not seem overly saturated. Her initial blood pressure in triage was hypotensive but all blood pressures since then have been within normal limits. She is currently asymptomatic. Will at this time do a CBC, BMP, coags, type and screen. Does not seem necessary to repeat ultrasound as she does had 1 done a couple weeks ago for the same symptoms. Hemoglobin came back at 8 which is 3 points lower compared to her baseline. I spoke to the on-call OB Gyne, Dr. Granda, recommends we transfuse the patient 1 unit of blood and started on Provera 20 mg t.i.d. for 7 days. This was prescribed. Will give her 1 dose in the emergency department. Will also check orthostatic blood pressures after blood is given. Patient was signed out to my colleague pending orthostatic blood pressures and the blood transfusion <Leeroy De La Garza DO - Last Filed: 03/01/24 17:25> Patient is a 69-year-old female presenting for vaginal bleeding. There is a moderate amount of blood within the vaginal vault. Her adult diaper that she was wearing told the blood did not seem overly saturated. Her initial blood pressure in triage was hypotensive but all blood pressures since then have been within normal limits. She is currently asymptomatic. Will at this time do a CBC, BMP, coags, type and screen. Does not seem necessary to repeat ultrasound as she does had 1 done a couple weeks ago for the same symptoms. Hemoglobin came back at 8 which is 3 points lower compared to her baseline. I spoke to the on-call OB Gyne, Dr. Granda, recommends we transfuse the patient 1 unit of blood and started on Provera 20 mg t.i.d. for 7 days. This was prescribed. Will give her 1 dose in the emergency department. Will also check orthostatic blood pressures after blood is given. Patient was signed out to my colleague pending orthostatic blood pressures and the blood transfusion Danya Jones MD: Chelo was signed out to me by my colleague. Chelo is currently receiving blood and plan had been for patient to go home. She had also received Provera for dysfunctional uterine bleeding. Unfortunately she does have continued bleeding to the point where I did ask for formal OB consult with Dr. Granda. At this time will be admitting patient to the hospital for ongoing pad counts and hemoglobin checks. 1. Dysfunctional uterine bleeding-patient noted to have ongoing bleeding for approximately a week now worsening in the last 4 days and with mild lightheadedness dizziness in the last 24 hours. Patient had a biopsy with Dr. Kirby this last week. Ultrasound by Fernie per patient report notes that endometrial thickening of 12 mm. We are currently trying to get that formal report. Patient is given 1 unit of blood in the ED and notes that this has made her feel quite a bit better. With the ongoing bleeding however will admit patient to the floor under the care of Dr. Granda for monitoring. 2. Disposition-admit to [facility] under the care of OBGYN. Addendum: Dr. Granda notice increased bleeding with our patient and has therefore decided to take patient to the OR for a D&C. I spoke to Chelo about her past history with anesthesia and she notes that she does have prolonged period of coming out of anesthesia and she wakes up feeling very cold. There is no known history of malignant hyperthermia. She has had an intermittent cough that comes and goes that she is relating to allergies or the use of a fan. She has not had any chest pain or difficulty breathing fever or chills. She is currently on Eliquis for atrial fibrillation. Her last dose was just over 24 hours ago she did not take that medication today. Examination shows a female in no acute distress with some mild pallor. Oral cavity with moist mucous membranes. Her dentition is absent on the top in intact on the jaw. Visualization of the posterior oropharynx is without difficulty. Neck is supple. Heart with regular rate and rhythm. Lungs are clear bilaterally. No cough noted while in the emergency room. Abdomen soft nontender. Lower extremity show lymphedema that patient notes is unchanged. No calf tenderness. Normal female external genitalia. Slow ooze of dark maroon- colored blood. 1. Dysfunctional bleeding-patient noted to have continued bleeding. She has received 1 unit of blood. OBGYN to take the patient to the OR. 2. History of atrial fibrillation on chronic anticoagulation-patient has not had her Xarelto in 24 hours. Her EKG shows sinus rhythm with no acute changes this evening. 3. History of congestive heart failure-chest x-ray within normal limits. No evidence of heart failure. O2 sats 98% on room air. EKG with no evidence of heart strain. 4. Disposition-admit to same-day surgery-order for admit to observation is now canceled. Patient is at increased would risk for complications in surgery due to being morbidly obese, history of cardiomyopathy as well as congestive heart failure and cardiac arrhythmia. Fortunately no evidence of heart failure tonight with normal x-ray and oxygen levels. Did discuss patient with anesthesia. ASA category 2-3. While she has diagnoses of significant concern, they do not appear to be causing significant problems this evening and patient is experiencing potentially life-threatening bleeding. Patient is in normal sinus rhythm and again chest x-ray is reassuring. I did speak with OBGYN in regards to the ongoing bleeding. Andexxa which is a reversal agent for both Eliquis and Xarelto will be on hand in the OR if needed. <Danya Jones MD - Last Filed: 03/02/24 00:20> Medical Records Attestation: I reviewed the patient's medical records. <Danya Jones MD - Last Filed: 03/02/24 00:20> Lab Data Attestation: I reviewed the patient's lab results. <Danya Jones MD - Last Filed: 03/02/24 00:20> Labs: Lab Results 03/01/24 Range/Units 16:09 WBC 10.01 (4.50-11.00) K/uL RBC 2.70 L (4.00-5.20) m/uL Hgb 8.0 L (12.0-16.0) gm/dL Hct 24.7 L (33.0-51.0) % MCV 92 (80-100) fL MCH 30 (26-34) pg MCHC 32 (32-36) gm/dL RDW Coeff of Chin 14.3 (11.5-15.5) % Plt Count 213 (140-440) K/uL Neut % (Auto) 62.5 (42.0-72.0) % Lymph % (Auto) 29.8 (20-44) % Gates % (Auto) 6.0 (0.0-11.0) % Eos % (Auto) 1.1 (0.0-7.0) % Baso % (Auto) 0.4 (0.0-3.0) % Neut # (Auto) 6.26 (1.7-7.0) K/uL Lymph # (Auto) 2.98 H (0.90-2.90) K/uL Gates # (Auto) 0.60 (0.00-0.90) K/UL Eos # (Auto) 0.11 (0.00-0.50) K/uL Baso # (Auto) 0.04 (0.00-0.30) K/uL Abs Immat Gran (auto) 0.02 (0.00-0.30) K/uL Imm/Tot Granulo (auto) 0.2 % INR 1.63 H (0.91-1.10) APTT 30 (23-33) Seconds Sodium 130 L (135-149) mmol/L Potassium 4.3 (3.6-5.1) mmol/L Chloride 97 (96-114) mmol/L Carbon Dioxide 23 (20-32) mmol/L Anion Gap 10 (7-15) mEq/L BUN 36 H (7-30) mg/dL Creatinine 1.9 H (0.5-1.5) mg/dL Estimated Creat Clear 29.62 Estimated GFR 28 ml/min Glucose 181 H (60-115) mg/dL Calcium 8.6 (8.4-10.6) mg/dL Blood Type A Positive Antibody Screen NEGATIVE Crossmatch (AHG) See Detail <Leeroy De La Garza, DO - Last Filed: 03/01/24 17:25> Lab Results 03/01/24 Range/Units 16:09 WBC 10.01 (4.50-11.00) K/uL RBC 2.70 L (4.00-5.20) m/uL Hgb 8.0 L (12.0-16.0) gm/dL Hct 24.7 L (33.0-51.0) % MCV 92 (80-100) fL MCH 30 (26-34) pg MCHC 32 (32-36) gm/dL RDW Coeff of Chin 14.3 (11.5-15.5) % Plt Count 213 (140-440) K/uL Neut % (Auto) 62.5 (42.0-72.0) % Lymph % (Auto) 29.8 (20-44) % Gates % (Auto) 6.0 (0.0-11.0) % Eos % (Auto) 1.1 (0.0-7.0) % Baso % (Auto) 0.4 (0.0-3.0) % Neut # (Auto) 6.26 (1.7-7.0) K/uL Lymph # (Auto) 2.98 H (0.90-2.90) K/uL Gates # (Auto) 0.60 (0.00-0.90) K/UL Eos # (Auto) 0.11 (0.00-0.50) K/uL Baso # (Auto) 0.04 (0.00-0.30) K/uL Abs Immat Gran (auto) 0.02 (0.00-0.30) K/uL Imm/Tot Granulo (auto) 0.2 % INR 1.63 H (0.91-1.10) APTT 30 (23-33) Seconds Sodium 130 L (135-149) mmol/L Potassium 4.3 (3.6-5.1) mmol/L Chloride 97 (96-114) mmol/L Carbon Dioxide 23 (20-32) mmol/L Anion Gap 10 (7-15) mEq/L BUN 36 H (7-30) mg/dL Creatinine 1.9 H (0.5-1.5) mg/dL Estimated Creat Clear 29.62 Estimated GFR 28 ml/min Glucose 181 H (60-115) mg/dL Calcium 8.6 (8.4-10.6) mg/dL Blood Type A Positive Antibody Screen NEGATIVE Crossmatch (AHG) See Detail <Danya Jones MD - Last Filed: 03/02/24 00:20> Imaging Data Chest x-ray: Attestation: I have reviewed the pertinent imaging results. <Danya Jones MD - Last Filed: 03/02/24 00:20> Radiologist's impression: Cardiovascular and mediastinum: Heart size and vasculature are normal in caliber and appearance. Lungs and pleural spaces: Lungs are clear. No pleural effusion, or pneumothorax. Bones and soft tissues: Unremarkable for age. IMPRESSION: No evidence of an acute pulmonary process. <Danya Jones MD - Last Filed: 03/02/24 00:20> ECG Data Attestation: I personally reviewed and interpreted this ECG as follows: <Danya Jones MD - Last Filed: 03/02/24 00:20> ECG interpretation date: 03/01/24 <Danya Jones MD - Last Filed: 03/02/24 00:20> Interpretation: EKG by my read showed sinus rhythm. No acute ST or T-wave changes. Normal TN and QT intervals. <Danya Jones MD - Last Filed: 03/02/24 00:20> Critical Care Time Critical Care Time Critical Care Time: Yes Attestation: The patient required my highest level preparedness to intervene emergently and I personally spent this critical care time directly and personally managing the patient. This critical care time included: Obtaining a history; Examining the patient; Pulse oximetry; Ordering and reviewing of studies; Arranging urgent treatment with development of a management plan; Evaluation of patients response to treatment; Frequent reassessment discussions with other providers. This critical care time was performed to assess and manage the high probability of imminent life-threatening deterioration that could result in multiorgan failure. It was exclusive of separate billable procedures and treating other patients and teaching time. <Danya Jones MD - Last Filed: 03/02/24 00:20> Total Critical Care Time in Minutes: 45 <Danya Jones MD - Last Filed: 03/02/24 00:20> Discharge Plan Discharge Clinical Impression: Dysfunctional uterine bleeding <Leeroy De La Garza DO - Last Filed: 03/01/24 17:25> Patient Disposition: Home, Self-Care <Leeroy De La Garza DO - Last Filed: 03/01/24 17:25>
[2024-03-01 16:43] LABS: INR 1.63 (0.91-1.10); Partial Thromboplastin Time* 30 Seconds (23-33); Prothrombin Time 20.5 Seconds
[2024-03-01 17:11] LABS: Basophils Absolute Auto 0.04 K/uL (0.00-0.30); Basophils Percent Auto 0.4 % (0.0-3.0); Eosinophils Absolute Auto 0.11 K/uL (0.00-0.50); Eosinophils Percent Auto 1.1 % (0.0-7.0); Hematocrit 24.7 % (33.0-51.0); Immature Granulocytes Abs Auto 0.02 K/uL (0.00-0.30); Immature Granulocytes Pct Auto 0.2 %; Lymphocytes Absolute Auto 2.98 K/uL (0.90-2.90); Lymphocytes Percent Auto 29.8 % (20-44); Mean Corpuscular HGB Conc 32 gm/dL (32-36); Mean Corpuscular Hemoglobin 30 pg (26-34); Mean Corpuscular Volume 92 fL (80-100); Neutrophils Absolute Auto 6.26 K/uL (1.7-7.0); Neutrophils Percent Auto 62.5 % (42.0-72.0); Platelet Count* 213 K/uL (140-440); RDW Coefficient of Variation % 14.3 % (11.5-15.5); White Blood Count* 10.01 K/uL (4.50-11.00)
[2024-03-01 17:12] LABS: Slide Review Reflex No
[2024-03-01] MEDS: MEDROXYPROGESTERONE 5 MG TABLET 20 MG PO (17:37)
[2024-03-01 17:51] LABS: Chloride* 97 mmol/L (96-114); Potassium* 4.3 mmol/L (3.6-5.1); Sodium* 130 mmol/L (135-149)
[2024-03-01 17:54] LABS: Anion Gap 10 mEq/L (7-15); Blood Urea Nitrogen* 36 mg/dL (7-30); Carbon Dioxide* 23 mmol/L (20-32); Creatinine* 1.9 mg/dL (0.5-1.5); Est. Creatinine Clearance* 29.62; Estimated Glomerular Filt Rate 28 ml/min; Glucose* 181 mg/dL (60-115)
[2024-03-01 17:55] LABS: Calcium* 8.6 mg/dL (8.4-10.6)
--- NOTE | 2024-03-01 22:20 | CRLHL7_ITS ---
For Patients: As a result of the Century Cures Act, medical imaging exams and procedure reports are released immediately into your electronic medical record. You may view this report before your referring provider. If you have questions, please contact your health care provider. INDICATION: Vaginal bleeding. TECHNIQUE: Chest 1 view. COMPARISON: 02/02/2022. FINDINGS: Cardiovascular and mediastinum: Heart size and vasculature are normal in caliber and appearance. Lungs and pleural spaces: Lungs are clear. No pleural effusion, or pneumothorax. Bones and soft tissues: Unremarkable for age. IMPRESSION: No evidence of an acute pulmonary process. Dictated by Oliver Branch MD @ 03/01/2024 10:51:49 PM (Electronically Signed)
--- NOTE | 2024-03-01 22:39 | P.GYNCN_ITS ---
[facility] - CN: HPI Data of Consult Time Seen by Provider: 20:00 Date Seen: 03/01/24 Patient: Fernie Patient Consult date: 03/01/24 Primary Care Provider: Rob Beckford MD Consult Narrative Narrative: Chelo Torres is a 69 year old female G0 here for acute postmenopausal uterine bleeding. She is currently being worked up for postmenopausal bleeding and saw Dr. Kirby on Friday03/01/24 for an endometrial biopsy. Report having a period a year ago during her hospitalization for cellulitis. She started bleeding again in January 2024 but this bleeding episode is more prolonged and started having clots associated with it as well. She was seen at the [facility] for evaluation on 02/20/24. Her hemoglobin was found to be 12.1. A pelvic ultrasound was obtained which showed a normal size uterus measuring 8.9 x 4.4 x 3.8 cm, without masses or irregularities. The endometrium was noted to be heterogeneous, measuring 1.2 cm in thickness. Ovaries were nonvisualized. She presented to the ED for dizziness, lightheadedness and fatigue. Reports that her bleeding was light at the beginning of the day but she hasn't moved too much due to feeling unwell. Reports she bleeds a lot more when she's doing her normal daily activity. Hgb today was 8.0 gm/dL. She is getting 1u of pRBC. One dose of provera 20 mg was given. Originally when I evaluated her, she had minimal bleeding on pad and was feeling significantly better with the blood transfusion. Discussed with her plan to admit her overnight for monitoring/pad counts, repeat labs, and continued provera 20 mg TID x 7 days. Discussed with patient she'll likely need a D&C if her endometrial biopsy is benign or her bleeding doesn't improve in the AM. She is on therapeutic Xarelto and took it at 6PM last evening. Ideally, she would be 48 hours out from her last dose to Xarelto prior to surgery to minimize her bleeding risk. However, when I went back to check on patient 45 minutes later, I did not a large clot passing PV. Speculum exam bedside was difficult due to habitus and patient's comfort but I was able to remove a clot from her cervical os and bright red bleeding followed after. Bleeding temporized with bimanual pressure. Reports that the kind of bleeding that has been happening where she'll pass a clot follow by brisk bright red blood. Given that active bleeding has started up again, I recommend moving forward with hysteroscopy, dilation and curettage tonight. Surgery would be diagnostic and therapeutic for her. She asked about a hysterectomy which is definitely not my goal tonight. She is at very high risk for endometrial cancer (increase age, nulliparity, obesity) so even if her biopsy is benign, pursuing definitive treatment with a hysterectomy is a reasonable discussion to have. Of course, risk of endometrial cancer needs to be weighted against her surgical risks with all of comorbidities that she has. If she were to have a hysterectomy, ideally, this would be done in a very controlled and planned fashioned. There is always her risk of hysterectomy emergently if I am unable to control her bleeding intraop. She understands that her clinical picture is complex and there are many dynamic factors to consider, however, she is comfortable with my recommendation to proceed with hysteroscopy, dilation curettage tonight. GYNECOLOGIC HISTORY: Menopausal since age 56. She has no history abnormal Pap smears, sexually transmitted infections, or pelvic inflammatory disease.The patient is not sexually active. cc:: CC: [facility] Medical History Edema of both lower legs due to peripheral venous insufficiency ?I87.2 - Venous insufficiency (chronic) (peripheral) (ICD-10) ?R60.0 - Localized edema (ICD-10) Symptomatic congestive heart failure ?I50.9 - Heart failure, unspecified (ICD-10) Postmenopausal vaginal bleeding (08/21/22) ?N95.0 - Postmenopausal bleeding (ICD-10) Mild mitral valve regurgitation ?I34.0 - Nonrheumatic mitral (valve) insufficiency (ICD-10) Mild left ventricular hypertrophy ?I51.7 - Cardiomegaly (ICD-10) Mild aortic valve stenosis ?I35.0 - Nonrheumatic aortic (valve) stenosis (ICD-10) Mild aortic valve regurgitation ?I35.1 - Nonrheumatic aortic (valve) insufficiency (ICD-10) 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) ?R79.83 - Abnormal findings of blood amino-acid level (ICD-10) Family history of clotting disorder ?Z83.2 - Family history of diseases of the blood and blood-forming organs and certain disorders involving the immune mechanism (ICD-10) Cardiomyopathy due to hypertension ?I11.9 - Hypertensive heart disease without heart failure (ICD-10) ?I43 - Cardiomyopathy in diseases classified elsewhere (ICD-10) Primary osteoarthritis of both knees ?M17.0 - Bilateral primary osteoarthritis of knee (ICD-10) Chronic anticoagulation ?Z79.01 - manager intermediate (current) use of anticoagulants (ICD-10) PAF (paroxysmal atrial fibrillation) ?I48.0 - Paroxysmal atrial fibrillation (ICD-10) Hypertension ?I10 - Essential (primary) hypertension (ICD-10) Family history of clotting disorder ?Z83.2 - Family history of diseases of the blood and blood-forming organs and certain disorders involving the immune mechanism (ICD-10) Infection with ESBL Klebsiella oxytoca ?A49.8 - Other bacterial infections of unspecified site (ICD-10) ?Z16.12 - Extended spectrum beta lactamase (ESBL) resistance (ICD-10) Postmenopausal vaginal bleeding ?N95.0 - Postmenopausal bleeding (ICD-10) 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) Bilateral lower extremity edema ?R60.0 - Localized edema (ICD-10) Controlled type 2 diabetes mellitus ?E11.9 - Type 2 diabetes mellitus without complications (ICD-10) Hypothyroidism ?E03.9 - Hypothyroidism, unspecified (ICD-10) Anemia ?D64.9 - Anemia, unspecified (ICD-10) Cellulitis of left lower extremity without foot ?L03.116 - Cellulitis of left lower limb (ICD-10) Acute appendicitis with appendiceal abscess ?K35.33 - Acute appendicitis with perforation, localized peritonitis, and gangrene, with abscess (ICD-10) Diastolic CHF with preserved left ventricular function, NYHA class 2 ?I50.30 - Unspecified diastolic (congestive) heart failure (ICD-10) Mild mitral regurgitation ?I34.0 - Nonrheumatic mitral (valve) insufficiency (ICD-10) Mild left ventricular hypertrophy ?I51.7 - Cardiomegaly (ICD-10) Mild aortic insufficiency ?I35.1 - Nonrheumatic aortic (valve) insufficiency (ICD-10) Hypertensive cardiomyopathy ?I11.9 - Hypertensive heart disease without heart failure (ICD-10) ?I43 - Cardiomyopathy in diseases classified elsewhere (ICD-10) Mild aortic stenosis ?I35.0 - Nonrheumatic aortic (valve) stenosis (ICD-10) Stage 3b chronic kidney disease ?N18.32 - Chronic kidney disease, stage 3b (ICD-10) Morbidly obese ?E66.01 - Morbid (severe) obesity due to excess calories (ICD-10) Paroxysmal atrial fibrillation with rapid ventricular response ?I48.0 - Paroxysmal atrial fibrillation (ICD-10) Hyperlipidemia ?E78.5 - Hyperlipidemia, unspecified (ICD-10) Surgical History S/P laparoscopic appendectomy (~06/2019) ?Z90.49 - Acquired absence of other specified parts of digestive tract (ICD- 10) Family History Brother Coronary artery disease High cholesterol Father Coronary artery disease Sister Diabetes Mother High blood pressure Social History Narrative: Smoked 40 pack-years, quit in 2016. Drinks 2-3 drinks per year. Denies recreational drug use. Never , no kids. Leila (friend) is emergency contact. Born [place] raised in . Lives alone. 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 What is your current living situation?: I presently have a place to live Problems where you live: no known problems Problems where you live details: n/a In the past 12 months, utilities in danger of being shut off: no In past 12 months, lack of transportation kept you from medical appts, meetings, work, or getting things needed for daily living: no In the past 12 mos, have been you worried that your food would run out before you had money to buy more?: never true In the past 12 mos, the food you bought just didn't last and you didn't have money to buy more?: never true Highest level of school completed/degree received: Associate degree: occupational, technical, vocational program Smoking Status: Former smoker Do you use any of these nicotine containing products: None Second hand tobacco smoke exposure: No How often do you have a drink containing alcohol: monthly or less How often do you have six or more drinks on one occasion: Never AUDIT-C Alcohol total score: 1 Non-prescribed substance use: denies use Caffeine: Yes How often does anyone, including family, friends and others, physically hurt you : never How often does anyone, including family, friends and others, insult or talk down to you: never How often does anyone, including family, friends and others, threaten you with harm: never How often does anyone, including family, friends and others, scream or curse at you: never service: No Meds Home Medications and Allergies Home Medications ?Medication ?Instructions ?Recorded ?Confirmed ?Type atorvastatin 40 mg tablet 40 mg PO HS 02/02/22 02/27/24 History hydrochlorothiazide 25 mg tablet 25 mg PO HS 02/02/22 02/27/24 History cyanocobalamin (vitamin B-12) 1,000 mcg PO DAILY 08/12/22 02/27/24 History 1,000 mcg tablet metoprolol succinate 50 mg 150 mg PO HS 08/12/22 02/27/24 History tablet,extended release 24 hr lisinopril 20 mg tablet 20 mg PO DAILY 01/24/24 02/27/24 History rivaroxaban 20 mg tablet (Xarelto) 20 mg PO DAILY 01/24/24 02/27/24 History acetaminophen 650 mg 1,300 mg PO Q12H 02/27/24 02/27/24 History tablet,extended release (Tylenol Arthritis Pain) cholecalciferol (vitamin D3) 125 125 mcg PO QDAY 02/27/24 02/27/24 History mcg (5,000 unit) capsule turmeric 400 mg capsule mg PO 02/27/24 02/27/24 History Allergies Allergy/AdvReac Type Severity Reaction Status Date / Time gabapentin AdvReac Mild Anxiety Verified 03/01/24 15:32 vancomycin AdvReac Red Man Verified 03/01/24 15:32 Syndrome [facility] - Exam Physical Exam: Vital signs: Temp Pulse Resp BP Pulse Ox O2 Del Method 97.0 F L 61 16 124/56 L 98 Room Air 03/01/24 19:50 03/01/24 19:50 03/01/24 19:50 03/01/24 19:50 03/01/24 19:50 03/01/24 19:50 Narrative: Physical exam: General: No acute distress. Obese Psych: Alert and oriented x3, full affect HEENT: Normocephalic, atraumatic Lungs: Unlabored breathing Neuro: No focal deficit. Mentating appropriately Pelvic exam: Limited speculum exam in the ED showed clots protruding to cervical os. Removal of the clots caused bright red bleeding from cervical os. Cervical os appears 1 cm dilated. Difficult to palpate the size of uterus on bimanual exam given habitus however does not feel grossly enlarged. Will perform a more thorough exam under sedation in the OR. [facility] - Results Labs Labs: Short CBC 03/01/24 Range/Units 16:09 WBC 10.01 (4.50-11.00) K/uL Hgb 8.0 L (12.0-16.0) gm/dL Hct 24.7 L (33.0-51.0) % Plt Count 213 (140-440) K/uL BMP 03/01/24 16:09 Sodium 130 L Potassium 4.3 Chloride 97 Carbon Dioxide 23 BUN 36 H Creatinine 1.9 H Glucose 181 H Calcium 8.6 Assessment and Plan Assessment and plan (1) Dysfunctional uterine bleeding: Status: Acute Plan -She was consented for emergent hysteroscopy, dilation and curettage, and suction dilation for the indication (s) of dysfunctional uterine bleeding causing symptomatic anemia requiring blood transfusion. We discussed the risks, benefits, and alternatives. Complications with hysteroscopy, D&C: Most common is perforation 0.12-1.61% (this is more common with uterine anomalies, or postmenopausal status), infection <1% (no need for preoperative antibiotics), fluid overload 0.2%, air embolism <0.1%. She does have a higher risk of hemorrhage due to recent dosage have a Xarelto. -she has another unit of PRBC ready to use as needed -post transfusion CBC and coags ordered -2 large-bore IV placed prior to proceeding to the OR. 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 Consent form signed -Dr. Jones was kind enough to do her preoperative clearance given her expansive comorbidities. -Will place hospitalist consult for AM after surgery is completed
[2024-03-01 23:50] LABS: Basophils Percent Auto 0.4 % (0.0-3.0); Eosinophils Percent Auto 1.3 % (0.0-7.0); Hematocrit 28.4 % (33.0-51.0); Hemoglobin* 9.4 gm/dL (12.0-16.0); Immature Granulocytes Pct Auto 0.7 %; Lymphocytes Percent Auto 36.5 % (20-44); Mean Corpuscular HGB Conc 33 gm/dL (32-36); Mean Corpuscular Hemoglobin 30 pg (26-34); Mean Corpuscular Volume 91 fL (80-100); Monocytes Percent Auto 5.7 % (0.0-11.0); Neutrophils Percent Auto 55.4 % (42.0-72.0); Platelet Count* 215 K/uL (140-440); RDW Coefficient of Variation % 14.5 % (11.5-15.5); Red Blood Count 3.11 m/uL (4.00-5.20); White Blood Count* 11.27 K/uL (4.50-11.00)
--- OUTSIDE RECORDS SUMMARY | 2024-03-01 23:50 | XMS_ITS | Clinical Summary ---
Author Organization [facility] Address [place], [place] [address] Care Team Providers Care Circuit Board Assembler Name Role Phone Marlon Valencia MD Unavailable [phone] Rob Beckford MD Primary Care Provider [phone] Smiht Cheney MD Unavailable [phone] Allergies Active Allergy Reactions Criticality Noted Date Comments Gabapentin Anxiety Low 08/12/2022 Vancomycin Itching Medium 01/29/2021 Medications Medication Sig Dispensed Refills Start Date End Date Status cawmheg-scnd-bjoae -oreg-capryl 100 mg-150 mg- 50 mg-150 mg capIndications:Ashly aurelio osteoarthritis of right knee Take 2 Each by mouth once daily. 0 11/29/19 21 Active cyanocobalamin (Vitamin B-12) 1,000 mcg tabletIndications: B12 deficiency Take 1 Tablet (1,000 mcg) by mouth once daily. 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 diastolic CHF (congestive heart failure) (HC) [...] Type Department Care Team Description 03/01/[address] [address] Rob Beckford MD Refill Request (Metoprolol Succinate) 02/27/2024 Lab Requisition [facility] [phone] Tessa Kirby MD 02/26/2024 3:05 PM CDT Office Visit [address] [address] Rob Beckford MD Medicare ANNUAL (subsequent) Visit (Age 69); Immunization/Injection ; Immunization/Injection (COVID-19 vaccine) 02/26/[address] [address] Rob Beckford MD Refill Request (Metoprolol Succinate) 02/26/2024 Travel 02/25/[address] [address] Rob Beckford MD Refill Request (Metoprolol Succinate) 02/21/2024 Travel 02/20/2024 1:00 PM CDT Ancillary Procedure [address] [place] [address] 02/20/2024 10:50 AM CDT Office Visit [facility] [address] [place] [address] Jo Ann Coates, DO Postmenopausal (Having bleeding for 3 days with clotting, also having some cramping ) 02/20/[address] [facility] [address] [place] [address] Jo Ann Coates, DO Results 02/19/2024 Travel 02/18/[address] [facility] [address] [place] [address] Rob Beckford MD Vaginal Bleeding; vaginal bleeding 02/16/2024 3:13 PM CDT - 02/16/2024 11:59 PM CDT Hospital Encounter [facility] [place] [address] [place] [address] [address] [place] [address] Jason Huff MD Finkel, Joann M, PT 02/16/2024 11:40 AM CDT Office Visit [facility] [address] [place] [phone] Lidia Mckay, JESÚS Eye Problem (Floaters) 02/16/2024 Travel 02/14/2024 Travel 02/13/2024 Telephone [facility] [address] [place] [phone] Lidia Mckay, JESÚS Questions (Vision change ) 02/05/2024 1:50 PM CDT Office Visit [facility] [address] [place] [address] Rob Beckford MD Hospital F/U ([facility] from 01/23/24 to 01/26/2024 for RIGHT Leg Cellulitis /Now having bilateral lower leg swelling, pain, stiffness, redness/RIGHT Knee is painful) 02/05/2024 Orders Only [facility] Scanner 1 scan: (1-Ord) INCOMING RECORDS-EKG, [facility], 02/05/2024 02/05/2024 Orders Only [facility] Scanner 1 scan: (1-Ord) INCOMING RECORDS-LABS, [facility], 02/05/2024 02/04/2024 Travel 02/03/2024 Telephone [facility] [address] [place] [address] Jason Huff MD UPDATE (Right knee) 01/30/2024 2:30 PM CDT Office Visit [facility] [address] [place] [address] Caitlin Husain PA Nose Problem 01/30/2024 Travel 01/27/[address] [facility] [address] [place] [address] Rob Beckford MD Questions 01/21/2024 12:58 PM CDT - 01/21/2024 11:59 PM CDT Hospital Encounter [facility] [place] [address] [place] [address] Jason Huff MD Finkel, Joann M, PT Primary osteoarthritis of right knee; Primary osteoarthritis of left knee; Lymphedema; Morbid obesity with BMI of 50.0-59.9, adult (HC) 01/21/2024 Travel 01/02/2024 Telephone [facility] [address] [place] [address] Jason Huff MD Pain 12/31/2023 2:00 PM CDT Office Visit [facility] [address] [place] [address] Jason Huff MD 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 [address] [place] [address] Rob Beckford MD Questions (Orthopedic referral ) 12/12/[address] [facility] [place] [address] Rob Beckford MD Questions 12/11/2023 10:45 AM CDT Office [facility] [address] Rob Beckford MD Diabetes (Last Diabetic Check: 08/14/2023/Last Diabetic Eye Exam: ?/Last Diabetic Education: ?); Musculoskeletal Problem (Follow-up Chronic Bilateral Knee pain - would like injection today/RIGHT knee is worse today) 12/11/2023 Travel 12/09/2023 11:30 AM CDT Orders Only [place] [address] [address] [place] [address] Lab, [place] [facility] 12/09/2023 10:45 AM CDT Ancillary Procedure [facility] [place] [address] 12/09/2023 Travel 12/01/[address] [facility] [address] [place] [address] Rob Beckford MD Lab from Last 3 [...] DT Respiratory Rate 18 05/30/2020 9:55 AM ASSOCIATE ARTISTIC DIRECTOR Oxygen Saturation 100% 02/26/2024 3:16 PM CDT Inhaled Oxygen Concentration - - Weight 146.5 kg (323 lb) 02/26/2024 3:16 PM CDT Height 167.6 cm (5' 6) 02/26/2024 3:16 PM CDT Body Mass Index 52.13 02/26/2024 3:16 PM CDT Plan of Treatment Upcoming Encounters Date Type Department Care Team (Late st Contact Info) Description 03/03/2024 3:30 PM ASSOCIATE ARTISTIC DIRECTOR Appointment [facility] [place] [address] [place] [address] [place] [address] [place] [address] 03/11/2024 2:00 PM ASSOCIATE ARTISTIC DIRECTOR Appointment [facility] [place] [address] [place] [address] [place] [address] [place] [address] 03/18/2024 2:45 PM ASSOCIATE ARTISTIC DIRECTOR Appointment [facility] [place] [address] [place] [address] [place] [address] [place] [address] 04/12/2024 10:40 AM ASSOCIATE ARTISTIC DIRECTOR Ancillary Procedure [facility] [address] [place] [address] 04/12/2024 11:10 AM ASSOCIATE ARTISTIC DIRECTOR Office Visit [facility] [address] [place] [address] Rob Beckford MD [address] [place] [address] Health Maintenance Due Date Last Done Comments [...] BILAT SCREEN Routine 03/21/2023 10:57 AM ASSOCIATE ARTISTIC DIRECTOR Visit for screening mammogram OCCULT BLOOD IFOBT STOOL Routine 02/05/2023 2:11 PM CDT Screening for colorectal cancer XR DXA BONE DENSITY 2 SITES AXIAL AND 1 SITE PERIPHERAL Routine 05/08/2021 11:16 AM ASSOCIATE ARTISTIC DIRECTOR Postmenopausal ANTI HCV Routine 02/09/2019 12:25 PM [...] 11.0 thou/cu mm 02/20/2024 5:08 PM CDT [facility] RED BLOOD COUNT 3.93(L) 4.00 - 5.20 mil/cu mm 02/20/2024 5:08 PM T [facility] HEMOGLOBIN 12.1 12.0 - 16.0 g/dL 02/20/2024 5:08 PM T [facility] HEMATOCRIT 36.2 33.0 - 51.0 % 02/20/2024 5:08 PM T [facility] MCV 92 80 - 100 fL 02/20/2024 5:08 PM T [facility] MCH 30.8 26.0 - 34.0 pg 02/20/2024 5:08 PM [facility] MCHC 33.4 32.0 - 36.0 g/dL 02/20/2024 5:08 PM T [facility] RDW 14.2 11.5 - 15.5 % 02/20/2024 5:08 PM [facility] PLATELET COUNT 234 140 - 440 thou/cu mm 02/20/2024 5:08 PM T [facility] MPV 10.7 6.5 - 11.0 fL 02/20/2024 5:08 PM [facility] Blood BLOOD SPECIMEN / Unknown [facility] / Unknown 02/20/2024 12:41 PM CDT 02/20/2024 12:41 PM CDT Jo Ann Coates DO HEMATOLOGY [facility] [address] [place] [address] * (ABNORMAL) LIPID PANEL W REFLEX MEASURED [...] Clin. Lipidol. 2015;9:129-169. LDL-CHOLESTEROL 90 mg/dL (calc) [facility] Comment: Reference range: <100 Desirable range <100 mg/dL for primary prevention; ?? <70 mg/dL for patients with CHD or diabetic patients with > or = 2 CHD risk factors. LDL-C is now calculated using the Ervin calculation, which is a validated novel method providing better accuracy than the Friedewald equation in the estimation of LDL-C. Corey SS et al. AAYUSH. 2013;310(19): 1676-2835 (http://education.ProteoSense/faq/DOH960) CHOL/HDLC RATIO 4.4 <5.0 (calc) [facility] NON HDL CHOLESTEROL 122 <130 mg/dL (calc) [facility] Comment: For patients with diabetes plus 1 major ASCVD risk factor, treating to a non-HDL-C goal of <100 mg/dL (LDL-C of <70 mg/dL) is considered a therapeutic option. Blood BLOOD SPECIMEN / Unknown 02/05/2024 2:48 PM CDT 02/05/2024 2:49 PM CDT Rob Beckford MD CHEMISTRY [facility] [address] [place] [address], [facility] [address] [place] [address] * (ABNORMAL) BASIC METABOLIC PANEL (02/05/2024 2:48 PM CDT) Only the most recent of2 resultswithin the time period is included. GLUCOSE 128(H) 65 - 99 mg/dL [facility] Comment: ? Fasting reference interval For someone without known diabetes, a glucose value >125 mg/dL indicates that they may have diabetes and this should be confirmed with a follow-up test. UREA NITROGEN (BUN) 33(H) 7 - 25 mg/dL [facility] CREATININE 1.32(H) 0.50 - 1.05 mg/dL [facility] EGFR 44(L) > OR = 60 mL/min/1.7 3m2 [facility] BUN/CREATININE RATIO 25(H) 6 - 22 (calc) [facility] SODIUM 137 135 - 146 mmol/L [facility] POTASSIUM 5.4(H) 3.5 - 5.3 mmol/L [facility] CHLORIDE 101 98 - 110 mmol/L [facility] CARBON DIOXIDE 22 20 - 32 mmol/L [facility] ELECTROLYTE BALANCE 14 7 - 17 mmol/L (calc) [facility] CALCIUM 9.7 8.6 - 10.4 mg/dL [facility] Blood BLOOD SPECIMEN / Unknown 02/05/2024 2:48 PM CDT 02/05/2024 2:49 PM CDT Rob Beckford MD CHEMISTRY [facility] [address] [place] [address], [employer] [address] [place] [address] * SCAN CORRESP-LABORATORY RESULTS (02/05/2024 12:00 AM CDT) Scanner OTHER * SCAN CORRESP-EKG RESULTS (02/05/2024 12:00 AM CDT) Scanner OTHER * (ABNORMAL) HEMOGLOBIN A1C MONITORING (POCT) (01/24/2024) Only the most recent of2 resultswithin the time period is included. HEMOGLOBIN A1C MONITORING (POCT) 7.1(BULL FIDDLE PLAYER AL) <=6.4 % [facility] Blood BLOOD SPECIMEN / Unknown 01/24/2024 Rob Beckford MD CHEMISTRY [facility] [address] [place] [address] * POTASSIUM (12/11/2023 12:17 PM CDT) POTASSIUM 4.9 3.5 - 5.1 mmol/L 12/11/2023 10:41 PM CDT [facility] Blood BLOOD SPECIMEN / Unknown Venipuncture / Unknown 12/11/2023 12:17 PM CDT 12/11/2023 12:19 PM CDT Rob Beckford MD CHEMISTRY Performing Organization Address City/[facility]/ZIP Co de Phone Number [facility] [address] [address], [place] * XR KNEE WB 2 VIEWS [...] ANGELICA BILAT SCREEN (03/21/2023 10:57 AM ASSOCIATE ARTISTIC DIRECTOR) Anatomical Region Laterality Modality BREASTS, Breast Left, Breast Right Bilateral Mammography Impressions 03/21/2023 4:49 PM ASSOCIATE ARTISTIC DIRECTOR ??There is no radiographic evidence for malignancy. ??Recommend annual mammograms. MAMMOGRAM ASSESSMENT: ??ACR 1 Negative PATIENTS: You will also receive a letter with your examination results in an easy to read format. ??If you have questions about your results, please contact your referring provider. Narrative 03/21/2023 4:49 PM ASSOCIATE ARTISTIC DIRECTOR For Patients: As a result of the Cures Act, medical imaging exams and procedure reports are released immediately into your electronic medical record. You may view this report before your referring provider. If you have questions, please contact your health care provider. XR MAMMO ANGELICA BILAT SCREEN [[id number]] CLINICAL HISTORY: ??This is an asymptomatic 68 y.o. patient. INDICATION FOR EXAM: Mammogram Screening. TECHNIQUE: CC & MLO views were obtained. ??This study was evaluated with the assistance of Computer-Aided Detection. Breast Tomosynthesis was used in interpretation. COMPARISON FILM: Yes 05/08/21 [employer] ?? FINDINGS: ??The breasts have scattered areas of fibroglandular density. There are no dominant masses, suspicious micro calcifications or areas of architectural distortion. Rob Beckford MD MAMMO * OCCULT BLOOD IFOBT STOOL (02/05/2023 2:11 PM CDT) STOOL BLOOD ,IFOBT Negative Negative 02/07/2023 3:08 PM CDT [facility] Stool STOOL SPECIMEN / Unknown Non-Blood / Unknown 02/05/2023 2:11 PM CDT 02/07/2023 2:11 PM CDT Amy Carrasco MD LABORATORY [facility] [address] [place] [address], * XR DXA BONE DENSITY 2 SITES AXIAL AND 1 SITE PERIPHERAL (05/08/2021 11:16 AM ASSOCIATE ARTISTIC DIRECTOR) Anatomical Region Laterality Modality LUMBAR SPINE Other Impressions 05/09/2021 5:37 PM ASSOCIATE ARTISTIC DIRECTOR Normal bone density. RECOMMENDATIONS: The National Osteoporosis [...] Vicente PA-C Narrative 05/09/2021 5:37 PM ASSOCIATE ARTISTIC DIRECTOR For Patients: Results are automatically released to your [facility] account once available, in compliance with federal regulations. This means that you may see your results before your provider has had a chance to review them. Please allow 2-3 business days for your provider to comment on the results. XR DXA Bone Mineral Density (BMD) EXAM LOCATION: [address] [address] PATIENT NAME: Chelo Torres DATE OF : [...] two scanners are made by the same tire repairer. PROCEDURE: Dual-energy x-ray absorptiometry performed with routine [...] marjorie Non-React marjorie 02/09/2019 8:25 PM CDT [facility] Comment:Antibodies to HCV no t detected; does not exclude the possibility of exposure to HCV. Blood BLOOD SPECIMEN / Unknown Venipuncture / Unknown 02/09/2019 12:25 PM CDT 02/09/2019 12:29 PM CDT Anish Hutchinson MD SEND OUTS [facility] [address] [place] [address], [place] from Last 3 Months or Most Recently Relevant to Health Maintenance Care Teams Circuit Board Assembler Relationship Specialty Start Date End Date [place] [address] [address] [address] PCP - General Family Practice 02/21/23 Marlon Valencia MD [address] [place] [address] Nephrology Nephrology 02/21/23 Smith Cheney MD [address] [place] [address] Cardiology Cardiovascular Disease 02/26/24
[2024-03-01 23:53] LABS: Slide Review Reflex No
[2024-03-02] VITALS (16 sets, daily range): BP systolic 82–145; BP diastolic 39–61; PULSE 57–75; RESP 16–18; TEMP 36.2–36.5; O2SAT 93–100
[2024-03-02 00:05] LABS: Fibrinogen* 363 mg/dL (200-450); INR 1.31 (0.91-1.10); Prothrombin Time 17.2 Seconds
[2024-03-02] MEDS: LIDOCAINE 1%-EPI 1:100,000 20 ML INFILTRATI (00:09)
[2024-03-02] MEDS: SILVER NITRATE APPLICATOR 1 EACH STICK..EA. TOPICAL (00:31)
[2024-03-02] MEDS: fentaNYL 100 MCG/2 ML inj 50 MCG IVP ×2 (00:55→01:00)
--- NOTE | 2024-03-02 00:55 | P.ANES_ITS ---
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
--- NOTE | 2024-03-02 02:08 | P.GYNPRC_ITS ---
Procedure Note Time Seen by Provider: 23:00 Date of procedure: 03/01/24 Will [facility] bill your pro fee for this procedure?: Yes Pre-op diagnosis: 1. Acute postmenopausal bleeding 2. Acute blood loss anemia requiring blood transfusion Post-op diagnosis: 1. Acute post menopausal bleeding 2. Acute blood loss anemia requiring blood transfusion 3. Multiple endometrial polyps Procedure: 1. Exam under anesthesia 2. Hysteroscopy 3. Dilation and curettage with soft tissue shaver, sharp, and suction curette Anesthesia: MAC and local Complications: None Surgeon: Lissy Granda MD Estimated blood loss (mL): 75 IV fluids (mL): 500 Urine Output (mL): 40 Pathology: specimen obtained, sent to pathology (1. Endometrial curettings/polyps) Condition: stable Disposition: floor Findings: Pelvic exam: Mons normal, Urethral meatus normal. Labia minora and majora are completely fused. Perineum and anus normal appearance. Vaginal introitus with severe atrophy. Vaginal pink with atrophy and clots in the vaginal vault. Cervix 1 cm dilated with a clot protruding through. No obvious mass/lesion. Bimanual exam reveals uterus to be soft, mobile, anteverted, of normal size and texture. No palpable adnexal masses - exam is limited due to habitus. On hysteroscopy: Hypervascular endometrium. Multiple vascular endometrial polyps of varying consistency. Normal bilateral tubal ostia. Procedure Description: Procedure: Chelo was taken to the operating where conscious sedation was found to be adequate. She was placed in the dorsal lithotomy position. An exam under anesthesia was performed with findings stated above. She was then prepped and draped in normal sterile manner. A bivalve metal speculum was placed in the vaginal canal. The cervix and vaginal canal appear normal. A paracervical block was placed using 1% lidocaine with epinephrine: 5 mL injected at the 4 and 8 o'clock positions on the cervix. The anterior lip of the cervix was then grasped with a long Allis. The cervix was dilated to Hegar 6. The uterus sounded to 8 cm. The hysteroscope advanced into the uterus and a diagnostic hysteroscopy was performed with findings stated above. Normal saline was used as the insufflation medium. Soft tissue shaver was used to perform polypectomy and global curetting. I intermittently had to remove the hysteroscope due to compromise of the visual field secondary to bleeding and performed either sharp or suction curetting (Thai 7) to temporize the bleeding. I was able to completely remove the polyps that were visible and do global sampling under direct visualization. The uterus and documented a normal appearing uterine cavity at the end of the procedure. Fluid deficit at the end of the procedure 560 mL. Total fluid: 5730 mL The hysteroscope and Allis clamp were removed from the uterus and cervix. Excellent hemostasis noted. Silver nitrate used for cervical friability. Packing placed with gel placed PV. The patient tolerated the procedure well. Sponge, lap and instruments counts were correct at the end of the procedure. The patient was awakened from anesthesia and taken to the recovery area in stable condition. Surgical debrief performed at the end of the procedure.
[2024-03-02] MEDS: MEDROXYPROGESTERONE 5 MG TABLET 20 MG PO ×3 (02:09→17:56)
[2024-03-02] MEDS: ACETAMINOPHEN 325 MG TABLET 650 MG PO (02:09)
--- NOTE | 2024-03-02 06:22 | PC.NURSE ---
Pt pleasant and cooperative. VSS she has slept most of the night. Up this am to BR with SBA and her cane. Voided large amt. of slightly cloudy urine. No pain noted at this time. No bleeding noted. Packing remains in place.
[2024-03-02 06:56] LABS: Basophils Absolute Auto 0.02 K/uL (0.00-0.30); Basophils Percent Auto 0.2 % (0.0-3.0); Eosinophils Absolute Auto 0.12 K/uL (0.00-0.50); Eosinophils Percent Auto 1.2 % (0.0-7.0); Hematocrit 24.9 % (33.0-51.0); Hemoglobin* 8.2 gm/dL (12.0-16.0); Immature Granulocytes Abs Auto 0.02 K/uL (0.00-0.30); Immature Granulocytes Pct Auto 0.2 %; Lymphocytes Absolute Auto 2.91 K/uL (0.90-2.90); Lymphocytes Percent Auto 28.3 % (20-44); Mean Corpuscular HGB Conc 33 gm/dL (32-36); Mean Corpuscular Hemoglobin 30 pg (26-34); Mean Corpuscular Volume 92 fL (80-100); Neutrophils Absolute Auto 6.61 K/uL (1.7-7.0); Neutrophils Percent Auto 64.1 % (42.0-72.0); Platelet Count* 200 K/uL (140-440); RDW Coefficient of Variation % 14.4 % (11.5-15.5); Red Blood Count 2.71 m/uL (4.00-5.20)
[2024-03-02 06:58] LABS: Slide Review Reflex No
[2024-03-02 07:13] LABS: Chloride* 100 mmol/L (96-114); Sodium* 133 mmol/L (135-149)
[2024-03-02 07:15] LABS: Creatinine* 1.6 mg/dL (0.5-1.5); Est. Creatinine Clearance* 35.17; Estimated Glomerular Filt Rate 35 ml/min
[2024-03-02 07:16] LABS: Anion Gap 9 mEq/L (7-15); Blood Urea Nitrogen* 35 mg/dL (7-30); Calcium* 8.2 mg/dL (8.4-10.6); Carbon Dioxide* 24 mmol/L (20-32); Glucose* 140 mg/dL (60-115)
--- NOTE | 2024-03-02 07:25 | P.IMCN_ITS ---
Date of Consult Consult date: 03/02/24 Primary Care Provider: Rob Beckford MD Consult Narrative Reason for consult: Patient with dysfunctional uterine bleeding and multiple comorbidities Narrative: Chelo Torres is a 69 year old female with past medical history of morbid obesity, hypertension, hyperlipidemia, diabetes type 2, congestive heart failure, and paroxysmal AFib on anticoagulation who presents with abnormal uterine bleeding. Patient received blood transfusion and is currently status post hysteroscopy, dilation and curettage. She is hemodynamically stable. Hemoglobin trended and it was stable, her last hemoglobin level was 8.9. Patient has been on Xarelto for her paroxysmal AFib and along with the diagnosis of vascular uterine polyps and family history of bleeding disorder, she is at risk for uterine bleeding. We were consulted for management of her medical conditions. Review of Systems Status of ROS: Reports: 6 or more systems reviewed and unremarkable except as noted in History and below [facility] Medical History Edema of both lower legs due to peripheral venous insufficiency ?I87.2 - Venous insufficiency (chronic) (peripheral) (ICD-10) ?R60.0 - Localized edema (ICD-10) Symptomatic congestive heart failure ?I50.9 - Heart failure, unspecified (ICD-10) Postmenopausal vaginal bleeding (08/21/22) ?N95.0 - Postmenopausal bleeding (ICD-10) Mild mitral valve regurgitation ?I34.0 - Nonrheumatic mitral (valve) insufficiency (ICD-10) Mild left ventricular hypertrophy ?I51.7 - Cardiomegaly (ICD-10) Mild aortic valve stenosis ?I35.0 - Nonrheumatic aortic (valve) stenosis (ICD-10) Mild aortic valve regurgitation ?I35.1 - Nonrheumatic aortic (valve) insufficiency (ICD-10) 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) ?R79.83 - Abnormal findings of blood amino-acid level (ICD-10) Family history of clotting disorder ?Z83.2 - Family history of diseases of the blood and blood-forming organs and certain disorders involving the immune mechanism (ICD-10) Cardiomyopathy due to hypertension ?I11.9 - Hypertensive heart disease without heart failure (ICD-10) ?I43 - Cardiomyopathy in diseases classified elsewhere (ICD-10) Primary osteoarthritis of both knees ?M17.0 - Bilateral primary osteoarthritis of knee (ICD-10) Chronic anticoagulation ?Z79.01 - intermediate project manager (current) use of anticoagulants (ICD-10) PAF (paroxysmal atrial fibrillation) ?I48.0 - Paroxysmal atrial fibrillation (ICD-10) Hypertension ?I10 - Essential (primary) hypertension (ICD-10) Family history of clotting disorder ?Z83.2 - Family history of diseases of the blood and blood-forming organs and certain disorders involving the immune mechanism (ICD-10) Infection with ESBL Klebsiella oxytoca ?A49.8 - Other bacterial infections of unspecified site (ICD-10) ?Z16.12 - Extended spectrum beta lactamase (ESBL) resistance (ICD-10) Postmenopausal vaginal bleeding ?N95.0 - Postmenopausal bleeding (ICD-10) 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) Bilateral lower extremity edema ?R60.0 - Localized edema (ICD-10) Controlled type 2 diabetes mellitus ?E11.9 - Type 2 diabetes mellitus without complications (ICD-10) Hypothyroidism ?E03.9 - Hypothyroidism, unspecified (ICD-10) Anemia ?D64.9 - Anemia, unspecified (ICD-10) Cellulitis of left lower extremity without foot ?L03.116 - Cellulitis of left lower limb (ICD-10) Acute appendicitis with appendiceal abscess ?K35.33 - Acute appendicitis with perforation, localized peritonitis, and gangrene, with abscess (ICD-10) Diastolic CHF with preserved left ventricular function, NYHA class 2 ?I50.30 - Unspecified diastolic (congestive) heart failure (ICD-10) Mild mitral regurgitation ?I34.0 - Nonrheumatic mitral (valve) insufficiency (ICD-10) Mild left ventricular hypertrophy ?I51.7 - Cardiomegaly (ICD-10) Mild aortic insufficiency ?I35.1 - Nonrheumatic aortic (valve) insufficiency (ICD-10) Hypertensive cardiomyopathy ?I11.9 - Hypertensive heart disease without heart failure (ICD-10) ?I43 - Cardiomyopathy in diseases classified elsewhere (ICD-10) Mild aortic stenosis ?I35.0 - Nonrheumatic aortic (valve) stenosis (ICD-10) Stage 3b chronic kidney disease ?N18.32 - Chronic kidney disease, stage 3b (ICD-10) Morbidly obese ?E66.01 - Morbid (severe) obesity due to excess calories (ICD-10) Paroxysmal atrial fibrillation with rapid ventricular response ?I48.0 - Paroxysmal atrial fibrillation (ICD-10) Hyperlipidemia ?E78.5 - Hyperlipidemia, unspecified (ICD-10) Surgical History S/P laparoscopic appendectomy (~06/2019) ?Z90.49 - Acquired absence of other specified parts of digestive tract (ICD- 10) Family History Brother Coronary artery disease High cholesterol Father Coronary artery disease Sister Diabetes Mother High blood pressure Social History Narrative: Smoked 40 pack-years, quit in 2016. Drinks 2-3 drinks per year. Denies recreational drug use. Never , no kids. Leila (friend) is emergency contact. Born [place] raised in . Lives alone. 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 What is your current living situation?: I presently have a place to live Problems where you live: no known problems Problems where you live details: n/a In the past 12 months, utilities in danger of being shut off: no In past 12 months, lack of transportation kept you from medical appts, meetings, work, or getting things needed for daily living: no In the past 12 mos, have been you worried that your food would run out before you had money to buy more?: never true In the past 12 mos, the food you bought just didn't last and you didn't have money to buy more?: never true Highest level of school completed/degree received: Associate degree: occupational, technical, vocational program Smoking Status: Former smoker Do you use any of these nicotine containing products: None Second hand tobacco smoke exposure: No How often do you have a drink containing alcohol: monthly or less How often do you have six or more drinks on one occasion: Never AUDIT-C Alcohol total score: 1 Non-prescribed substance use: denies use Caffeine: Yes How often does anyone, including family, friends and others, physically hurt you : never How often does anyone, including family, friends and others, insult or talk down to you: never How often does anyone, including family, friends and others, threaten you with harm: never How often does anyone, including family, friends and others, scream or curse at you: never service: No Meds Home Medications and Allergies Home Medications ?Medication ?Instructions ?Recorded ?Confirmed ?Type atorvastatin 40 mg tablet 40 mg PO HS 02/02/22 03/02/24 History hydrochlorothiazide 25 mg tablet 25 mg PO DAILY 02/02/22 03/02/24 History cyanocobalamin (vitamin B-12) 1,000 mcg PO DAILY 08/12/22 03/02/24 History 1,000 mcg tablet metoprolol succinate 50 mg 50 mg PO HS 08/12/22 03/02/24 History tablet,extended release 24 hr lisinopril 20 mg tablet 20 mg PO DAILY 01/24/24 03/02/24 History rivaroxaban 20 mg tablet (Xarelto) 20 mg PO DAILY 01/24/24 03/02/24 History acetaminophen 650 mg 1,300 mg PO Q12H 02/27/24 03/02/24 History tablet,extended release (Tylenol Arthritis Pain) cholecalciferol (vitamin D3) 125 125 mcg PO DAILY 02/27/24 03/02/24 History mcg (5,000 unit) capsule turmeric 400 mg capsule 400 mg PO DAILY 02/27/24 03/02/24 History metoprolol succinate 100 mg 100 mg PO DAILY 03/02/24 03/02/24 History tablet,extended release 24 hr Allergies Allergy/AdvReac Type Severity Reaction Status Date / Time gabapentin AdvReac Mild Anxiety Verified 03/01/24 15:32 vancomycin AdvReac Red Man Verified 03/01/24 15:32 Syndrome Exam Narrative: Exam Narrative: Physical exam GENERAL: Obese, no acute distress. HEAD AND NECK: Atraumatic, normocephalic CARDIOVASCULAR: RRR. Normal S1, S2. No murmurs. RESPIRATORY: Clear to auscultation B/L. Good air entry B/L. No wheezes or rhonchi. GASTROINTESTINAL: Not tender to palpation. NEUROLOGY: Alert, awake, oriented X 3. Normal speech. EXTREMITIES: Bilateral lower extremity edema. PSYCH: Normal mood, normal affect. Const: Vital Signs, click to edit/add: Vital Signs - 24 hr 03/01/24 15:26 03/01/24 16:00 03/01/24 16:01 Temperature 97.7 F Pulse Rate Pulse Rate [Left P ulse Oximeter] 66 Respiratory Rate 16 Blood Pressure Blood Pressure [Ri ght Arm] Blood Pressure [Ri ght Forearm] 127/45 L Pulse Oximetry 100 100 99 Oxygen Delivery Me thod Room Air 03/01/24 16:10 03/01/24 16:12 03/01/24 16:15 Temperature Pulse Rate 66 Pulse Rate [Left P ulse Oximeter] Respiratory Rate Blood Pressure Blood Pressure [Ri ght Arm] Blood Pressure [Ri ght Forearm] Pulse Oximetry 99 93 100 Oxygen Delivery Me thod 03/01/24 16:23 03/01/24 16:30 03/01/24 16:31 Temperature Pulse Rate Pulse Rate [Left P ulse Oximeter] Respiratory Rate Blood Pressure Blood Pressure [Ri ght Arm] Blood Pressure [Ri ght Forearm] Pulse Oximetry 100 100 100 Oxygen Delivery Me thod 03/01/24 16:40 03/01/24 16:45 03/01/24 17:06 Temperature Pulse Rate 66 Pulse Rate [Left P ulse Oximeter] 61 Respiratory Rate 18 Blood Pressure Blood Pressure [Ri ght Arm] Blood Pressure [Ri ght Forearm] 121/44 L Pulse Oximetry 100 100 100 Oxygen Delivery Md thod Room Air 03/01/24 18:50 03/01/24 19:47 03/01/24 19:50 Temperature 97.0 F L 97.1 F L 97.0 F L Pulse Rate 58 L Pulse Rate [Left P ulse Oximeter] 61 61 Respiratory Rate 16 16 16 Blood Pressure 131/41 L Blood Pressure [Ri ght Arm] Blood Pressure [Ri ght Forearm] 123/53 L 124/56 L Pulse Oximetry 94 98 98 [facility] Room Air 03/02/24 00:50 03/02/24 00:55 03/02/24 01:00 Temperature 97.2 F L Pulse Rate 75 71 75 Pulse Rate [Left P ulse Oximeter] Respiratory Rate 16 16 16 Blood Pressure 111/59 L 90/49 L 98/57 L Blood Pressure [Ri ght Arm] Blood Pressure [Ri ght Forearm] Pulse Oximetry 93 94 98 Oxygen Delivery Md thod Room Air Room Air Room Air 03/02/24 01:10 03/02/24 01:15 03/02/24 01:30 Temperature 97.5 F L 97.5 F L 97.5 F L Pulse Rate 70 Pulse Rate [Left P ulse Oximeter] 69 60 Respiratory Rate 16 16 16 Blood Pressure 96/61 Blood Pressure [Ri ght Arm] 98/41 L 116/39 L Blood Pressure [Ri ght Forearm] Pulse Oximetry 98 99 99 Oxygen Delivery Md thod Room Air Room Air Room Air 03/02/24 01:45 03/02/24 02:00 03/02/24 02:15 Temperature 97.6 F 97.6 F 97.7 F Pulse Rate 59 L 60 58 L Pulse Rate [Left P ulse Oximeter] Respiratory Rate 16 16 16 Blood Pressure 115/53 L 125/52 L 129/54 L Blood Pressure [Ri ght Arm] Blood Pressure [Ri ght Forearm] Pulse Oximetry 100 100 100 Oxygen Delivery Md thod Room Air Room Air Room Air 03/02/24 02:30 03/02/24 03:00 03/02/24 04:12 Temperature 97.6 F Pulse Rate 57 L 57 L 58 L Pulse Rate [Left P ulse Oximeter] Respiratory Rate 18 18 18 Blood Pressure 121/47 L 101/46 L 122/54 L Blood Pressure [Ri ght Arm] Blood Pressure [Ri ght Forearm] Pulse Oximetry 95 95 95 Oxygen Delivery Md thod Room Air Room Air Room Air 03/02/24 05:00 03/02/24 06:00 Temperature 97.4 F L 97.4 F L Pulse Rate 57 L 61 Pulse Rate [Left P ulse Oximeter] Respiratory Rate 16 16 Blood Pressure 82/40 L 145/53 H Blood Pressure [Ri ght Arm] Blood Pressure [Ri ght Forearm] Pulse Oximetry 94 99 Oxygen Delivery Md thod Room Air Room Air Labs Labs: Short CBC 03/01/24 03/01/24 03/02/24 Range/Units 16:09 23:43 05:55 WBC 10.01 11.27 H 10.30 (4.50-11.00) K/uL Hgb 8.0 L 9.4 L 8.2 L (12.0-16.0) gm/dL Hct 24.7 L 28.4 L 24.9 L (33.0-51.0) % Plt Count 213 215 200 (140-440) K/uL BMP 03/01/24 03/02/24 16:09 05:55 Sodium 130 L 133 L Potassium 4.3 4.0 Chloride 97 100 Carbon Dioxide 23 24 BUN 36 H 35 H Creatinine 1.9 H 1.6 H Glucose 181 H 140 H Calcium 8.6 8.2 L ECG Attestation: I personally reviewed and interpreted this ECG as follows: Interpretation: Normal sinus rhythm, no ischemic changes. Heart rate 60 beats per minute. Imaging Chest x-ray: Attestation: I have reviewed the pertinent imaging results. Radiologist's impression: TECHNIQUE: Chest 1 view. COMPARISON: 02/02/2022. FINDINGS: Cardiovascular and mediastinum: Heart size and vasculature are normal in caliber and appearance. Lungs and pleural spaces: Lungs are clear. No pleural effusion, or pneumothorax. Bones and soft tissues: Unremarkable for age. IMPRESSION: No evidence of an acute pulmonary process. Dictated by Oliver Branch MD @ 03/01/2024 10:51:49 PM Assessment and Plan Assessment and plan (1) Dysfunctional uterine bleeding: Problem comment: -Patient received blood transfusion and is currently status post hysteroscopy, dilation and curettage. -hemodynamically stable. Hemoglobin trended and it was stable, her last hemoglobin level was 8.9. -Patient has been on Xarelto for her paroxysmal AFib and along with the diagnosis of vascular uterine polyps and family history of bleeding disorder, she is at risk for uterine bleeding. Status: Acute (2) Anemia associated with acute blood loss: Problem comment: -anemia secondary to dysfunctional uterine bleeding. -status post blood transfusion, hemoglobin stable. -patient may benefit from iron supplementation with ferrous sulfate and vitamin- C as an outpatient. Status: Acute (3) Symptomatic congestive heart failure: Problem comment: -patient congestive heart failure looks compensated currently. -continue GDMT treatment with Mark inhibitors and beta-[place]. -chest x-ray was clear. Status: Chronic (4) Family history of clotting disorder: Status: Acute (5) Controlled type 2 diabetes mellitus: Problem comment: HgbA1C 7.0 in 11/2023. No meds. Diet controlled. Status: Chronic (6) PAF (paroxysmal atrial fibrillation): Problem comment: -Rate controlled with metoprolol. -patient is on Xarelto 20 mg daily at home. Will hold Xarelto for now due to acute uterine bleeding. -will need to discuss with bilingual school psychologist the risk and benefit of anticoagulation in this patient. -if patient is to be discharged today, we will hold Xarelto for now and she needs to follow-up with her PCP to resume anticoagulation when it is safe to do so. Status: Chronic (7) Chronic anticoagulation: Problem comment: -Xarelto 20mg/day. -the Will need to discuss with bilingual school psychologist the risk and benefit of anticoagulation in this patient. -if patient is to be discharged today, we will hold Xarelto for now and she needs to follow-up with her PCP ABDULLAHI to resume anticoagulation when it is safe to do so. Status: Chronic (8) Hypertension: Problem comment: Resume home meds Status: Chronic (9) Stage 3b chronic kidney disease: Problem comment: Baseline creatinine is approximately 1.2-1.5. Status: Chronic (10) Hypothyroidism: Status: Chronic (11) Morbidly obese: Problem comment: BMI of 51 Status: Chronic (12) Hyperlipidemia: Status: Chronic (13) Edema of both lower legs due to peripheral venous insufficiency: Status: Chronic Total Time Spent Total Time Spent: Time spent: Today I spent 75 minutes seeing the patient, discussing the patient with ER staff, reviewing Expanse and EPIC notes/diagnostics, discussing the care plan with our care time that includes social work, PT/OT, pharmacy, RT, assisted and documenting my impressions and plan in the medical record.
[2024-03-02 09:30] LABS: Hematocrit 26.9 % (33.0-51.0); Hemoglobin* 8.9 gm/dL (12.0-16.0); Mean Corpuscular HGB Conc 33 gm/dL (32-36); Mean Corpuscular Hemoglobin 30 pg (26-34); Mean Corpuscular Volume 92 fL (80-100); Platelet Count* 213 K/uL (140-440); Red Blood Count 2.94 m/uL (4.00-5.20); White Blood Count* 11.53 K/uL (4.50-11.00)
[2024-03-02 09:33] LABS: Slide Review Reflex No
--- NOTE | 2024-03-02 10:22 | P.GYNPN_ITS ---
SENIOR NETWORK ADMINISTRATOR - A/P Assessment and plan (1) Dysfunctional uterine bleeding: Problem details: -Patient received blood transfusion and is currently status post hysteroscopy, dilation and curettage. -hemodynamically stable. Hemoglobin trended and it was stable, her last hemoglobin level was 8.9. -Patient has been on Xarelto for her paroxysmal AFib and along with the diagnosis of vascular uterine polyps and family history of bleeding disorder, she is at risk for uterine bleeding. Status: Acute (2) Acute kidney injury superimposed on CKD: Status: Acute (3) Postmenopausal vaginal bleeding: Status: Acute Postoperative Procedures: Procedures Operation Date: 03/01/24 23:00 Actual Procedure Side Surgeon p Hysteroscopy D&C Truclear, POLYPECTOMY, SUCTION CURETTAGE Not Applicable Lissydevin Granda MD Time Spent With Patient Time: Total time spent is greater than 50% in coordination of care (as documented) at patient's floor/unit and/or counseling patient: Time with patient: less than 15 minutes SENIOR NETWORK ADMINISTRATOR- PN:Subj Post-Op Subjective Date Seen: 03/02/24 Interval history: Chelo is a 69-year-old G0 woman who is status post emergent hysteroscopy, D&C early this morning in the setting of heavy postmenopausal bleeding resulting in symptomatic anemia requiring transfusion. EBL was 75 cc. Findings were notable for multiple vascular endometrial polyps. Her comorbidities include CHF, paroxysmal atrial fibrillation, aortic insufficiency, stage 3b kidney disease and type 2 diabetes. Her BMI is 48.4. Post Operative Details: Post-operative day number 0: status post hysteroscopy, dilation and curettage SENIOR NETWORK ADMINISTRATOR-PN: Obj Exam Physical Exam: Vital signs: Temp Pulse Resp BP Pulse Ox O2 Del Method 97.5 F L 59 L 18 121/41 L 98 Room Air 03/02/24 06:26 03/02/24 06:26 03/02/24 06:26 03/02/24 06:26 03/02/24 06:26 03/02/24 06:26 SENIOR NETWORK ADMINISTRATOR - PN: Obj Data Labs Labs: Laboratory Results - last 24 hr 03/01/24 03/01/24 03/02/24 16:09 23:43 05:55 WBC 10.01 11.27 H 10.30 RBC 2.70 L 3.11 L 2.71 L Hgb 8.0 L 9.4 L 8.2 L Hct 24.7 L 28.4 L 24.9 L MCV 92 91 92 MCH 30 30 30 MCHC 32 33 33 RDW Coeff of Chin 14.3 14.5 14.4 Plt Count 213 215 200 Neut % (Auto) 62.5 55.4 64.1 Lymph % (Auto) 29.8 36.5 28.3 [place] % (Auto) 6.0 5.7 6.0 Eos % (Auto) 1.1 1.3 1.2 Baso % (Auto) 0.4 0.4 0.2 Neut # (Auto) 6.26 6.20 6.61 Lymph # (Auto) 2.98 H 4.10 H 2.91 H [place] # (Auto) 0.60 0.60 0.60 Eos # (Auto) 0.11 0.10 0.12 Baso # (Auto) 0.04 0.00 0.02 Abs Immat Gran (auto) 0.02 0.10 0.02 Imm/Tot Granulo (auto) 0.2 0.7 0.2 INR 1.63 H 1.31 H APTT 30 Fibrinogen 363 Sodium 130 L 133 L Potassium 4.3 4.0 Chloride 97 100 Carbon Dioxide 23 24 Anion Gap 10 9 BUN 36 H 35 H Creatinine 1.9 H 1.6 H Estimated Creat Clear 29.62 35.17 Estimated GFR 28 35 Glucose 181 H 140 H Calcium 8.6 8.2 L Blood Type A Positive Antibody Screen NEGATIVE Crossmatch ([facility]) See Detail 03/02/24 09:20 WBC 11.53 H RBC 2.94 L Hgb 8.9 L Hct 26.9 L MCV 92 MCH 30 MCHC 33 RDW Coeff of Chin Plt Count 213 Neut % (Auto) Lymph % (Auto) [place] % (Auto) Eos % (Auto) Baso % (Auto) Neut # (Auto) Lymph # (Auto) [place] # (Auto) Eos # (Auto) Baso # (Auto) Abs Immat Gran (auto) Imm/Tot Granulo (auto) INR APTT Fibrinogen Sodium Potassium Chloride Carbon Dioxide Anion Gap BUN Creatinine Estimated Creat Clear Estimated GFR Glucose Calcium Blood Type Antibody Screen Crossmatch ([facility])
--- NOTE | 2024-03-02 16:14 | P.DS_ITS ---
DS: Providers Provider Date Seen: 03/02/24 Primary care physician: Rob Beckford MD Consults: 03/02/24 01:29 Consult to Physician [CONS] Routine Comment: Consulting Provider: Hospitalists Has provider been notified: No Attending Physician on discharge: Betty Shah MD Date of Discharge: 03/02/24 DS: Diagnosis Discharge Diagnosis (1) Postmenopausal vaginal bleeding: Status: Acute (2) Status post hysteroscopy: Status: Acute (3) Chronic anticoagulation: Status: Chronic Problem details: -Xarelto 20mg/day. -the Will need to discuss with men's furnishings salesperson the risk and benefit of anticoagulation in this patient. -if patient is to be discharged today, we will hold Xarelto for now and she needs to follow-up with her PCP ABDULLAHI to resume anticoagulation when it is safe to do so. INS[employer]OR [employer]GE-Discharge Summary Hospital Course Hospital Course Narrative: Chelo is a 69-year-old G0 woman who is status post emergent hysteroscopy, D&C early this morning in the setting of heavy postmenopausal bleeding resulting in symptomatic anemia requiring transfusion. EBL was 75 cc. Findings were notable for multiple vascular endometrial polyps. Her comorbidities include CHF, paroxysmal atrial fibrillation, aortic insufficiency, stage 3b kidney disease and type 2 diabetes. Her BMI is 48.4. She did receive transfusion of packed red cells perioperatively. However, her hemoglobin has stabilized since hysteroscopy, dilation and curettage. She has had nothing but scant bleeding since that procedure. The ethan of her hemoglobin was 8.0 at 4:09 p.m. yesterday, and was most recently 8.9 at 9:20 a.m. today. She has been able to urinate and is tolerating a regular diet. She has not complained of pain. Her vital signs have remained stable since surgery. She has been started on both iron supplementation and high-dose Provera. After discussion with hospitalist, decision made to resume Xarelto on . 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 Labia minora and majora normal in appearance bilaterally. Vaginal packing, removed this morning, showed minimal brown blood. [employer] - DS: Data Data Completed and Pending Pending studies at discharge: Endometrial biopsy from 02/27/2024 Dilation curettage specimen from 03/02/2024 Labs on day of discharge: Labs from last 24 hours 03/02/24 03/02/24 03/01/24 09:20 05:55 23:43 WBC 11.53 H 10.30 11.27 H RBC 2.94 L 2.71 L 3.11 L Hgb 8.9 L 8.2 L 9.4 L Hct 26.9 L 24.9 L 28.4 L MCV 92 92 91 MCH 30 30 30 MCHC 33 33 33 RDW Coeff of Chin 14.4 14.5 Plt Count 213 200 215 Neut % (Auto) 64.1 55.4 Lymph % (Auto) 28.3 36.5 Clinch % (Auto) 6.0 5.7 Eos % (Auto) 1.2 1.3 Baso % (Auto) 0.2 0.4 Neut # (Auto) 6.61 6.20 Lymph # (Auto) 2.91 H 4.10 H Clinch # (Auto) 0.60 0.60 Eos # (Auto) 0.12 0.10 Baso # (Auto) 0.02 0.00 Abs Immat Gran (auto) 0.02 0.10 Imm/Tot Granulo (auto) 0.2 0.7 INR 1.31 H APTT Fibrinogen 363 Sodium 133 L Potassium 4.0 Chloride 100 Carbon Dioxide 24 Anion Gap 9 BUN 35 H Creatinine 1.6 H Estimated Creat Clear 35.17 Estimated GFR 35 Glucose 140 H Calcium 8.2 L Blood Type Antibody Screen Crossmatch (AHG) 03/01/24 16:09 WBC 10.01 RBC 2.70 L Hgb 8.0 L Hct 24.7 L MCV 92 MCH 30 MCHC 32 RDW Coeff of Chin 14.3 Plt Count 213 Neut % (Auto) 62.5 Lymph % (Auto) 29.8 Clinch % (Auto) 6.0 Eos % (Auto) 1.1 Baso % (Auto) 0.4 Neut # (Auto) 6.26 Lymph # (Auto) 2.98 H Clinch # (Auto) 0.60 Eos # (Auto) 0.11 Baso # (Auto) 0.04 Abs Immat Gran (auto) 0.02 Imm/Tot Granulo (auto) 0.2 INR 1.63 H APTT 30 Fibrinogen Sodium 130 L Potassium 4.3 Chloride 97 Carbon Dioxide 23 Anion Gap 10 BUN 36 H Creatinine 1.9 H Estimated Creat Clear 29.62 Estimated GFR 28 Glucose 181 H Calcium 8.6 Blood Type A Positive Antibody Screen NEGATIVE Crossmatch (AHG) See Detail Procedures Procedures: Procedures Operation Date: 03/01/24 23:00 Actual Procedure Side Surgeon p Hysteroscopy D&C Truclear, POLYPECTOMY, SUCTION CURETTAGE Not Applicable Lissy B MD Jesus Alberto Complications: none Discharge Plan Discharge Disposition: Home w/ Parent or Adult Discharging Surgeon: Betty Shah Follow-Up Appointment: 2 weeks with Drs. Kirby or Jesus Alberto Prescriptions: New medroxyprogesterone [Provera] 10 mg tablet 20 mg PO TID 7 Days Qty: 42 0RF ferrous sulfate 324 mg (65 mg iron) tablet,delayed release (DR/EC) 324 mg PO Q OTHER DAY Qty: 30 1RF Continued cholecalciferol (vitamin D3) 125 mcg (5,000 unit) capsule 125 mcg PO DAILY acetaminophen [Tylenol Arthritis Pain] 650 mg tablet extended release 1,300 mg PO Q12H atorvastatin 40 mg tablet 40 mg PO HS hydrochlorothiazide 25 mg tablet 25 mg PO DAILY cyanocobalamin (vitamin B-12) 1,000 mcg tablet 1,000 mcg PO DAILY metoprolol succinate 50 mg tablet extended release 24 hr 50 mg PO HS Patient Comments: total dose 150mg metoprolol succinate 100 mg tablet extended release 24 hr 100 mg PO DAILY Patient Comments: total dose 150mg Held turmeric 400 mg capsule 400 mg PO DAILY Hold Instructions: Resume on 03/27/24. lisinopril 20 mg tablet 20 mg PO DAILY Hold Instructions: Resume on 03/09/24. Hold until your kidney functions go back to normal, please follow-up with your primary care physician for repeat of kidney function. Xarelto 20 mg tablet 20 mg PO DAILY Hold Instructions: Resume on 03/04/24. Hold Xarelto for now and resume on . Please stop it if you notice any bleeding and contact your doctor/come back to the ED Activity Detail: Nothing per vagina until bleeding stops. Discharge Diet: Diabetic Patient Instructions: Medroxyprogesterone (By mouth), Dilation and Curettage (DC) Additional Instructions: Make sure to have close follow-up with the diesel technology instructor. Return to emergency department for new or worsening symptoms. Take the Provera 3 times a day for 5 days, then decrease to twice daily until your follow up visit. Hold Xarelto for now till Mar 04 and follow-up with primary care physician ABDULLAHI to discuss anticoagulation. Forms: [employer] Info Instructions Follow-up: Rob Beckford MD [Primary Care Provider] - Consulting provider completed their portion of the discharge: Yes
--- NOTE | 2024-03-02 20:13 | PC.NURSE ---
shift note: Dc'd IV x2 intact. No drainage on peripad. Pt had moderate soft stool. Reviewed dc instructions and copies sent with pt. Belongings reviewed and sent with pt.
== END 2024-03-02 19:00 | disposition home or self-care (01) ==
LOC: ED 22:51 → OR 23:49 → MEDSURG 03-02 01:14
PROVIDERS: Student in an Organized Health Care Education/Training Program; Emergency Provider Family Medicine; PCP Family Medicine; Visit Provider Obstetrics & Gynecology
PROC: 0UDB8ZZ Extraction of Endometrium, Via Natural or Artificial Opening Endoscopic (ICD-10-PCS; CPT 58558; principal; 2024-03-01 22:50)
DX: N95.0 Postmenopausal bleeding (principal); D62 Acute posthemorrhagic anemia; N95.2 Postmenopausal atrophic vaginitis; N93.8 Other specified abnormal uterine and vaginal bleeding; N84.0 Polyp of corpus uteri; R42 Dizziness and giddiness; Z83.2 Family history of diseases of the blood and blood-forming organs and certain disorders involving the immune mechanism; I11.0 Hypertensive heart disease with heart failure; I50.30 Unspecified diastolic (congestive) heart failure; I43 Cardiomyopathy in diseases classified elsewhere; E66.01 Morbid (severe) obesity due to excess calories; I48.0 Paroxysmal atrial fibrillation; I13.0 Hypertensive heart and chronic kidney disease with heart failure and stage 1 through stage 4 chronic kidney disease, or unspecified chronic kidney disease; E11.22 Type 2 diabetes mellitus with diabetic chronic kidney disease; N18.32 Chronic kidney disease, stage 3b; I50.32 Chronic diastolic (congestive) heart failure; N17.9 Acute kidney failure, unspecified; Z79.01 Long term (current) use of anticoagulants; E03.9 Hypothyroidism, unspecified; Z68.43 Body mass index [BMI] 50.0-59.9, adult; I73.9 Peripheral vascular disease, unspecified; I08.0 Rheumatic disorders of both mitral and aortic valves
CPT/HCPCS: 58558; 00952; 36415; 36430; 71045; 80048; 85025; 85027; 85384; 85610; 85730; 86850; 86900; 86901; 86922; 88305; 99140; 99284; 99285; 99291; A4338; A9270; C1782; J2250; J2405; J2704; J3010; J3490; J7030; P9016

== ENCOUNTER 2024-06-04 13:13 | Outpatient (CLI) | payer MEDICARE, OTHER, SELFPAY ==
--- NOTE | 2024-06-04 14:36 | P.ANES_ITS ---
Anesthesia Charges Start Date/Time Anesthesia Start Date: 06/04/24 Anesthesia Start Time: 14:10 Stop Date/Time Anesthesia Stop Date: 06/04/24 Anesthesia Stop Time: 14:34 Coding CPT Codes CPT Codes: HANY LWR INTST NDSC NOS - 37646 ([id number]) P4 - PT W/SEV SYS DIS THREAT LIFE, QK - QUALITY LIAISON 2-4 CNCRNT ANES PROC, QX - REGULATORY SCIENTIST SVC W/ MD MED DIRECTION
--- NOTE | 2024-06-04 14:36 | W.ANESCHARGE ---
Anesthesia Charges Start Date/Time Anesthesia Start Date: 06/04/24 Anesthesia Start Time: 14:10 Stop Date/Time Anesthesia Stop Date: 06/04/24 Anesthesia Stop Time: 14:34 Coding CPT Codes CPT Codes: HANY LWR INTST NDSC NOS - 00905 ([id number]) P4 - PT W/SEV SYS DIS THREAT LIFE, QK - SERVICE OR WORK DISPATCHER 2-4 CNCRNT ANES PROC, QX - ROBOTYPE OPERATOR SVC W/ MD MED DIRECTION
--- NOTE | 2024-06-04 14:37 | W.ANESCHARGE ---
Anesthesia Charges Start Date/Time Anesthesia Start Date: 06/04/24 Anesthesia Start Time: 14:10 Stop Date/Time Anesthesia Stop Date: 06/04/24 Anesthesia Stop Time: 14:34 Coding CPT Codes CPT Codes: HANY LWR INTST NDSC NOS - 71203 ([id number]) QK - INDEPENDENT VIDEO PRODUCER 2-4 CNCRNT ANES PROC, QX - FOOD MIXER REPAIRER SVC W/ MD MED DIRECTION, P4 - PT W/SEV SYS DIS THREAT LIFE
--- NOTE | 2024-06-04 14:37 | P.ANES_ITS ---
Anesthesia Charges Start Date/Time Anesthesia Start Date: 06/04/24 Anesthesia Start Time: 14:10 Stop Date/Time Anesthesia Stop Date: 06/04/24 Anesthesia Stop Time: 14:34 Coding CPT Codes CPT Codes: HANY LWR INTST NDSC NOS - 49261 ([id number]) QK - KEY WORKER 2-4 CNCRNT ANES PROC, QX - URGENT CARE SVC W/ MD MED DIRECTION, P4 - PT W/SEV SYS DIS THREAT LIFE
== END 2024-06-04 13:14 | disposition home or self-care (01) ==
LOC: OP CLINIC 13:14
PROVIDERS: PCP Family Medicine; Visit Provider Internal Medicine Gastroenterology
DX: Z12.11 Encounter for screening for malignant neoplasm of colon (principal); D12.3 Benign neoplasm of transverse colon; D12.5 Benign neoplasm of sigmoid colon; K57.30 Diverticulosis of large intestine without perforation or abscess without bleeding; R19.5 Other fecal abnormalities
CPT/HCPCS: 00811; 45385; 88302; 88305; J2704